=== PATIENT | female | born 1965 | race Caucasian/White ===

== ENCOUNTER 2022-01-05 11:27 | Inpatient (IN) | payer BC, MEDICARE ==
[2022-01-05] MEDS ORDERED: SODIUM CHLORIDE 0.9% 1,000 ML IV STA (12:15)
--- NOTE | 2022-01-05 12:17 | ED ---
General Adult HPI - General Chief complaint: Shortness of Breath Stated complaint: covid +, SOB Time Seen by Provider: 01/05/22 11:58 Source: EMS Mode of arrival: EMS Limitations: physical limitation - History of Present Illness Initial comments: Dictation was produced using [employer] dictation software. please excuse any grammatical, word or spelling errors. Chief Complaint: 56-year-old female with advanced multiple sclerosis and quad riplegia presents with and sister for worsening chest congestion History of Present Illness: She's 56-year-old female she has past medical history of multiple sclerosis with resulting quadriplegia. She is cared for at home by her . Patient contracted Covid they suspect on Saturday. She is been having worsening respiratory status since then. Patient allegedly has very low working tidal volumes. Concerned about her breathing which prompted her to arrive in the emergency department. Patient states she does not feel very bad. Denies any pain. She does complain of congestion. Denies any constitutional symptoms. Patient does not wear oxygen at home The ROS documented in this emergency department record has been reviewed and confirmed by me. Those systems with pertinent positive or negative responses have been documented in the HPI. All other systems are other negative and/or noncontributory. PHYSICAL EXAM: General Impression: Alert and oriented x3, not in acute distress HEENT: Normocephalic atraumatic, extra-ocular movements intact, pupils equal and reactive to light bilaterally, mucous membranes Cardiovascular: Heart regular rate and rhythm Chest: Diffuse rhonchi, no retractions, no tachypnea Abdomen: abdomen soft, non-tender, non-distended, no organomegaly Musculoskeletal: Pulses present and equal in all extremities, no peripheral edema Motor: no focal deficits noted Neurological: CN II-XII grossly intact, no focal motor or sensory deficits noted Skin: Intact with no visualized rashes Psych: Normal affect and mood ED course: 56-year-old quadriplegic female secondary to advanced multiple sclerosis presents to the emergency department for COVID-19 and chest congestion. Vital signs upon arrival shows 92% on 3 L nasal cannula. Rest vital signs within acceptable limits. Oxygen was temporarily turned off and patient came hypoxic into the upper 80s. She placed on nasal cannula with improvement of oxygenation into the low 90s. Pending CBC. Coag panel unremarkable. Metabolic panel shows an 1:30 likely secondary to mild dehydration. Rest of labs within acceptable limits. Patient is coronal virus positive. Chest x-ray shows suspicion of atypical pneumonia. Patient started on Unasyn. She'll be admitted for hypoxic respiratory failure and superimposed bacterial pneumonia. Admitted to [facility]. EKG interpretation: Ventricular rate 103, sinus tachycardia,. Interval 125, QS 94, QTC 393. No SD prolongation, no QTC prolongation, no ST or T-wave changes noted. EKG compared to 01/29/2015 showing no changes. Overall, this EKG is unremarkable - Related Data Home Medications Medication Instructions Recorded Confirmed Guaifen/Dextromethorphan/PE 10 ml PO BID PRN 01/05/22 01/05/22 [Mucinex Fast-Max Congest-Cough] Allergies Allergy/AdvReac Type Severity Reaction Status Date / Time No Known Allergies Allergy Verified 01/05/22 13:05 Review of Systems ROS Statement: Those systems with pertinent positive or pertinent negative responses have been documented in the HPI. ROS Other: All systems not noted in ROS Statement are negative. Past Medical History Additional Past Medical History / Comment(s): MS History of Any Multi-Drug Resistant Organisms: None Reported Past Surgical History: No Surgical Hx Reported Past Psychological History: No Psychological Hx Reported Smoking Status: Current every day smoker Past Alcohol Use History: None Reported, Occasional Past Drug Use History: None Reported General Exam Limitations: physical limitation Course Vital Signs 01/05/22 01/05/22 01/05/22 11:36 11:40 12:15 Temperature 98.4 F Pulse Rate 100 Respiratory 22 22 Rate Blood Pressure 142/95 O2 Sat by Pulse 92 L 88 L Oximetry Medical Decision Making - Lab Data Result diagrams: 01/05/22 12:01 Lab Results 01/05/22 01/05/22 01/05/22 Range/Units 12:01 12:01 12:01 PT 9.8 (9.0-12.0) sec INR 0.9 (<1.2) APTT 27.4 (22.0-30.0) sec Sodium 130 L (137-145) mmol/L Potassium 3.7 (3.5-5.1) mmol/L Chloride 98 (98-107) mmol/L Carbon Dioxide 22 (22-30) mmol/L Anion Gap 10 mmol/L BUN 10 (7-17) mg/dL Creatinine 0.25 L (0.52-1.04) mg/dL Est GFR (CKD-EPI)AfAm >90 (>60 ml/min/1.73 sqM) Est GFR (CKD-EPI)NonAf >90 (>60 ml/min/1.73 sqM) Glucose 111 H (74-99) mg/dL Plasma Lactic Acid Constantin (0.7-2.0) mmol/L Calcium 7.8 L (8.4-10.2) mg/dL Magnesium 1.8 (1.6-2.3) mg/dL Total Bilirubin 0.7 (0.2-1.3) mg/dL AST 90 H (14-36) U/L ALT 64 H (4-34) U/L Alkaline Phosphatase 71 (38-126) U/L Total Protein 5.6 L (6.3-8.2) g/dL Albumin 3.2 L (3.5-5.0) g/dL Influenza Type A (PCR) Not Detected (Not Detectd) Influenza Type B (PCR) Not Detected (Not Detectd) RSV (PCR) Not Detected (Not Detectd) SARS-CoV-2 (PCR) Detected A (Not Detectd) 01/05/22 Range/Units 12:01 PT (9.0-12.0) sec INR (<1.2) APTT (22.0-30.0) sec Sodium (137-145) mmol/L Potassium (3.5-5.1) mmol/L Chloride (98-107) mmol/L Carbon Dioxide (22-30) mmol/L Anion Gap mmol/L BUN (7-17) mg/dL Creatinine (0.52-1.04) mg/dL Est GFR (CKD-EPI)AfAm (>60 ml/min/1.73 sqM) Est GFR (CKD-EPI)NonAf (>60 ml/min/1.73 sqM) Glucose (74-99) mg/dL Plasma Lactic Acid Constantin 0.8 (0.7-2.0) mmol/L Calcium (8.4-10.2) mg/dL Magnesium (1.6-2.3) mg/dL Total Bilirubin (0.2-1.3) mg/dL AST (14-36) U/L ALT (4-34) U/L Alkaline Phosphatase (38-126) U/L Total Protein (6.3-8.2) g/dL Albumin (3.5-5.0) g/dL Influenza Type A (PCR) (Not Detectd) Influenza Type B (PCR) (Not Detectd) RSV (PCR) (Not Detectd) SARS-CoV-2 (PCR) (Not Detectd) Critical Care Time Critical Care Time: Yes Total Critical Care Time: 33 Disposition Clinical Impression: Hypoxia, Pneumonia Disposition: ADMITTED IP TO THIS [facility] Condition: Serious Referrals: None,Stated [Primary Care Provider] - 1-2 days Decision Time: 13:53
[2022-01-05 13:04] LABS: ALT 64 U/L (4-34); AST 90 U/L (14-36); African American GFR (CKD) >90 (>60 ml/min/1.73 sqM); Albumin 3.2 g/dL (3.5-5.0); Alkaline Phosphatase 71 U/L (38-126); Anion Gap 10 mmol/L; Blood Urea Nitrogen 10 mg/dL (7-17); Calcium 7.8 mg/dL (8.4-10.2); Carbon Dioxide 22 mmol/L (22-30); Chloride 98 mmol/L (98-107); Glucose 111 mg/dL (74-99); INR 0.9 (<1.2); Magnesium 1.8 mg/dL (1.6-2.3); Non-African American GFR(CKD) >90 (>60 ml/min/1.73 sqM); Partial Thromboplastin Time 27.4 sec (22.0-30.0); Potassium 3.7 mmol/L (3.5-5.1); Prothrombin Time 9.8 sec (9.0-12.0); Sodium 130 mmol/L (137-145); Total Bilirubin 0.7 mg/dL (0.2-1.3); Total Protein 5.6 g/dL (6.3-8.2)
--- NOTE | 2022-01-05 13:06 | XR ---
EXAMINATION TYPE: XR chest 2V DATE OF EXAM: 01/05/2022 COMPARISON: None HISTORY: 56-year-old female cough and congestion, COVID positive TECHNIQUE: AP and lateral views FINDINGS: The heart is upper limits of normal in size. Patient obliqued towards the left. There is interstitial prominence and peribronchial cuffing on the lateral view. Patchy opacity posteriorly on the lateral view likely at the left base. No pleural effusion. IMPRESSION: Interstitial prominence with peribronchial cuffing. Correlate for bronchitis or atypical pneumonias. There is more focal patchy posterior basilar opacity on the lateral view that could represent atelect asis or developing pneumonia.
[2022-01-05] MEDS ORDERED: AMPICILLIN-SULBACTAM 3 GM in SODIUM CHLORIDE 0.9% 100 ML IVPB STA (13:12)
[2022-01-05] MEDS ORDERED: NALOXONE 0.4 MG/ML 1 ML VIAL IV PRN (13:50)
[2022-01-05] MEDS: SODIUM CHLORIDE 0.9% 1,000 ML IV SCH (14:28)
[2022-01-05 15:47] LABS: Basophils % (A) 0 %; Eosinophils % (A) 0 %; HCT 41.8 % (34.0-46.0); HGB 14.3 gm/dL (11.4-16.0); Lymphocytes # (A) 0.3 k/uL (1.0-4.8); Lymphocytes % (A) 7 %; MCH 30.8 pg (25.0-35.0); MCHC 34.2 g/dL (31.0-37.0); MCV 89.9 fL (80.0-100.0); Mean Platelet Volume 9.5; Monocytes # (A) 0.2 k/uL (0-1.0); Monocytes % (A) 5 %; Neutrophils # (A) 3.9 k/uL (1.3-7.7); Neutrophils % (A) 87 %; RBC 4.65 m/uL (3.80-5.40); RDW 13.5 % (11.5-15.5); WBC 4.5 k/uL (3.8-10.6)
[2022-01-05 15:50] LABS: Platelet Count 97 k/uL (150-450)
[2022-01-05] MEDS ORDERED: IPRATROPIUM-ALBUTEROL 3 ML NEB INHALATION PRN (18:10)
[2022-01-05] MEDS ORDERED: [UNRECOGNIZED DRUG - OTHER] PO PRN (18:10)
[2022-01-05] MEDS ORDERED: PHENYLEPHRINE PO PRN (18:10)
[2022-01-05] MEDS ORDERED: DEXTROMETHORPHAN PO PRN (18:10)
[2022-01-05] MEDS ORDERED: GUAIFENESIN PO PRN (18:10)
--- NOTE | 2022-01-05 18:24 | P.HPIM ---
History of Present Illness H&P Date: 01/05/22 Chief Complaint: Congestion, weakness 56-year-old woman with a history of MS, quadriplegic, previous smoker, unvaccinated individual presented with increasing weakness, congestion. Patient's symptoms started Saturday of this week, continued to progress despite using Mucinex. She sounded extremely congested to family members who were at bedside and provide the entire history due to patient being a poor historian. Patient always had issues with sounding congested, which is gotten worse this week. They also noted episodes of her feeling quite hot to touch. Therefore, t wilian they brought her into the hospital for further evaluation. Review of systems could not be completed due to patient being a poor historian and limited participation in interview In the emergency room, patient was afebrile, 142/95, heart rate 100, 92% on 3 L of nasal cannula. CBC was unremarkable. Chemistries show a hyponatremia to 130, otherwise unremarkable. Liver function tests showed an AST, ALT of 90, 64, total protein, albumin of 5.6, 3.2. Coags are unremarkable. D-dimer was 0.36. Covid was detected positive. RSV, influenza A/B were negative. Chest x-ray shows interstitial prominence with peribronchial cuffing. EKG shows sinus tachycardia without ischemic changes. See HPI regarding review of systems Gen: in no apparent distress, resting comfortably in bed Eyes: PERRL, no scleral injection or icterus HENT: normocephalic, atraumatic, good hearing acuity, moist mucous membranes Neck: no tracheal deviation, full range of motion Resp: Impaired air exchange, tachypneic, diffuse congestion with evidence of rhonchi, rales CVS: good distal perfusion x 4, no pitting edema GI: soft, NTTP, ND, no hepatosplenomegaly : no suprapubic tenderness, no CVAT, hudson catheter not present MSK: no clubbing, no cyanosis, bilateral upper and lower extremity contractures contractures of extremities Skin: no noted rashes, petechiae; temperature of skin is appropriate Neuro: Quadriplegic Psych: Minimally cooperative, depressed mood, insight and judgment intact Labs and imaging as above Assessment/plan: Acute hypoxemic respiratory failure Covid 19 pneumonia -Admit to inpatient, telemetry -Dexamethasone -Famotidine, zinc, vitamin C, D -Pulmonary consult -Echo -Pro calcitonin, BNP -Follow inflammatory markers -Chest physiotherapy -Mucomyst Multiple sclerosis Quadriplegia -Q2h bed turn -Boots to offset heels Patient is DO NOT RESUSCITATE/DO NOT INTUBATE DVT prophylaxis with heparin 3 times a day Past Medical History Additional Past Medical History / Comment(s): MS History of Any Multi-Drug Resistant Organisms: None Reported Past Surgical History: No Surgical Hx Reported Past Psychological History: No Psychological Hx Reported Smoking Status: Current every day smoker Past Alcohol Use History: None Reported, Occasional Past Drug Use History: None Reported Medications and Allergies Home Medications Medication Instructions Recorded Confirmed Type Guaifen/Dextromethorphan/PE 10 ml PO BID PRN 01/05/22 01/05/22 History [Mucinex Fast-Max Congest-Cough] Allergies Allergy/AdvReac Type Severity Reaction Status Date / Time No Known Allergies Allergy Verified 01/05/22 13:05 Physical Exam Osteopathic Statement: *. No significant issues noted on an osteopathic struc tural exam other than those noted in the History and Physical/Consult. Vitals: Vital Signs Temp Pulse Pulse Resp BP BP Pulse Ox 01/05/22 18:10 99.1 F 86 16 145/84 91 L 01/05/22 17:16 89 16 154/92 91 L 01/05/22 14:04 98.6 F 90 18 150/87 93 L 01/05/22 12:15 88 L 01/05/22 11:40 22 01/05/22 11:36 98.4 F 100 22 142/95 92 L Intake and Output 01/05/22 01/05/22 01/05/22 06:59 14:59 22:59 Other: Weight 58.967 kg Results CBC & Chem 7: 01/05/22 14:35 01/05/22 12:01 Labs: Abnormal Lab Results - Last 24 Hours (Table) 01/05/22 01/05/22 01/05/22 Range/Units 12:01 12:01 14:35 Plt Count 97 L (150-450) k/uL Lymphocytes # 0.3 L (1.0-4.8) k/uL Sodium 130 L (137-145) mmol/L Creatinine 0.25 L (0.52-1.04) mg/dL Glucose 111 H (74-99) mg/dL Calcium 7.8 L (8.4-10.2) mg/dL AST 90 H (14-36) U/L ALT 64 H (4-34) U/L Total Protein 5.6 L (6.3-8.2) g/dL Albumin 3.2 L (3.5-5.0) g/dL SARS-CoV-2 (PCR) Detected A (Not Detectd)
[2022-01-05] MEDS ORDERED: ACETYLCYSTEINE 800 MG/4 ML VIAL INHALATION SCH (20:00)
[2022-01-05] MEDS: ALBUTEROL HFA INHALER INHALATION PRN (21:05)
[2022-01-05] MEDS: HEPARIN SODIUM,PORCINE/PF 5,000 UNIT/0.5 ML SYRINGE SQ SCH (23:04)
[2022-01-05] MEDS: FAMOTIDINE 20 MG TAB PO SCH (23:04)
[2022-01-06] MEDS: SODIUM CHLORIDE 0.9% 1,000 ML IV SCH ×2 (05:08→08:54)
[2022-01-06] MEDS: ALBUTEROL HFA INHALER INHALATION PRN ×3 (07:23→16:43)
[2022-01-06] MEDS: HEPARIN SODIUM,PORCINE/PF 5,000 UNIT/0.5 ML SYRINGE SQ SCH ×3 (10:39→20:45)
[2022-01-06] MEDS: FAMOTIDINE 20 MG TAB PO SCH ×2 (10:40→20:37)
[2022-01-06] MEDS: ASCORBIC ACID 500 MG TAB PO SCH (10:40)
[2022-01-06] MEDS: CHOLECALCIFEROL 25 MCG (1000 IU) TABLET PO SCH (10:41)
[2022-01-06] MEDS: ZINC SULFATE 220 MG CAP PO SCH (10:41)
[2022-01-06] MEDS: DEXAMETHASONE SOD PHOSPHATE 10 MG/ML 1 ML VIAL IVP SCH (10:59)
[2022-01-06 11:39] LABS: African American GFR (CKD) 160.3 (60.0-200.0); Albumin 2.7 g/dL (3.8-4.9); Albumin/Globulin Ratio 1.45 (1.60-3.17); BUN/Creat Ratio 28.41 Ratio (12.00-20.00); Bilirubin, Conjugated 0.22 mg/dL (0.20-0.40); Bilirubin,Unconjugated 0.26 mg/dL (0.20-1.00); Blood Urea Nitrogen 6.6 mg/dL (9.0-27.0); C Reactive Protein 16.6 mg/dL (0.00-0.80); Calcium 7.3 mg/dL (8.7-10.3); Carbon Dioxide 23.7 mmol/L (20.0-27.5); Globulin 1.8 g/dL (1.6-3.3); Magnesium 1.9 mg/dL (1.5-2.4); Non-African American GFR(CKD) 138.3 (60.0-200.0); Potassium 3.2 mmol/L (3.5-5.5); Total Bilirubin 0.5 mg/dL (0.30-1.20); Total Protein 4.5 g/dL (6.2-8.2)
[2022-01-06 12:12] LABS: Basophils # (A) 0 X 10*3/uL (0.00-0.10); Basophils % (A) 0 %; Eosinophils # (A) 0 X 10*3/uL (0.04-0.35); Eosinophils % (A) 0 %; HGB 12.8 g/dL (12.0-15.0); Immature Grans, Automated 0 %; Lymphocytes # (A) 0.34 X 10*3/uL (0.90-5.00); Lymphocytes % (A) 10.8 %; MCH 29.8 pg (27.0-32.0); MCHC 33.7 g/dL (32.0-37.0); MCV 88.4 fL (80.0-97.0); Mean Platelet Volume 11.6 fL (9.5-12.2); Monocytes # (A) 0.14 X 10*3/uL (0.20-1.00); Monocytes % (A) 4.5 %; NRBC Per 100 WBC 0 /100 WBCS (0.0-0.0); Neutrophils # (A) 2.66 X 10*3/uL (1.80-7.70); Neutrophils % (A) 84.7 %; Platelet Count 85 X 10*3/uL (140-440); RBC Morphology NORMAL; RDW 13.7 % (11.5-14.5); WBC 3.14 X 10*3/uL (4.50-10.00)
--- NOTE | 2022-01-06 12:35 | P.CNPUL ---
History of Present Illness Consult date: 01/06/22 Requesting physician: Krista Mckeon Reason for consult: dyspnea, abnormal CXR/CT Chief complaint: Shortness of breath History of present illness: This is a pleasant 56-year-old female patient with a known history of tobacco dependence, advanced multiple sclerosis with quadriplegia. He was diagnosed approximately 11 years ago. She is not on home oxygen. Earlier this week she developed increasing shortness of breath and was brought into the emergency room. She was found be CoVID positive. Chest x-ray revealed the posterior left lower lobe pneumonia. White count 3.1. Hemoglobin 12.8. Platelets 85,000. D- dimer 0.38. Sodium 1:30. Potassium 3.2. Bicarb 23. BUN is 0.6. Creatinine 0.2. AST 39. ALT 41. LDH 187. C-reactive protein 16.6. Pro-calcitonin 0.53. Influenza screen negative. Chronic virus by PCR positive. She was initiated on ceftriaxone, azithromycin, Decadron, vitamin supplements. Heparin for DVT prophylaxis. She is seen today in consultation on the regular medical floor. She is awake and alert. She denies any shortness of breath, cough or congesti on. No nausea or vomiting. She is maintaining O2 saturation in the 90s on 4 L/m per nasal cannula. She's been afebrile. Hemodynamically stable. Review of Systems REVIEW OF SYSTEMS: CONSTITUTIONAL: Quadriplegia Denies any recent significant weight loss or weight gain. EYES: Denies change in vision. EARS, NOSE, MOUTH, THROAT: Denies headaches, denies sore throat. CARDIOVASCULAR: Denies chest pain, palpitations or syncopal episodes. RESPIRATORY: Positive for shortness of breath, cough, congestion no hemoptysis. GASTROINTESTINAL: Denies change in appetite, denies abdominal pain GENITOURINARY: Denies hematuria, denies infections. MUSKULOSKELETAL: Denies pain, denies swelling. INTEGUMENTARY: Denies rash, denies eczema. NEUROLOGICAL: Denies recent memory loss, no recent seizure activity. PSYCHIATRIC: Denies anxiety, denies depression. HEMATOLOGIC/LYMPHATIC: Denies anemia, denies enlarged lymph nodes. Past Medical History Additional Past Medical History / Comment(s): MS History of Any Multi-Drug Resistant Organisms: None Reported Past Surgical History: No Surgical Hx Reported Past Anesthesia/Blood Transfusion Reactions: No Reported Reaction Additional Past Anesthesia/Blood Transfusion Reaction / Comment(s): Patient has never experienced either Past Psychological History: No Psychological Hx Reported Smoking Status: Current every day smoker Past Alcohol Use History: None Reported, Occasional Past Drug Use History: None Reported Medications and Allergies Home Medications Medication Instructions Recorded Confirmed Type Guaifen/Dextromethorphan/PE 10 ml PO BID PRN 01/05/22 01/05/22 History [Mucinex Fast-Max Congest-Cough] Allergies Allergy/AdvReac Type Severity Reaction Status Date / Time No Known Allergies Allergy Verified 01/05/22 13:05 Physical Exam Vitals: Vital Signs Temp Pulse Pulse Resp BP BP Pulse Ox 01/06/22 07:23 94 L 01/06/22 06:00 99.3 F 79 16 132/82 93 L 01/06/22 02:00 98.4 F 79 20 153/82 93 L 01/05/22 23:23 98.3 F 78 20 151/81 93 L 01/05/22 20:00 78 20 01/05/22 19:23 98.1 F 91 22 118/74 96 01/05/22 18:10 99.1 F 86 16 145/84 91 L 01/05/22 17:16 89 16 154/92 91 L 01/05/22 14:04 98.6 F 90 18 150/87 93 L 01/05/22 12:15 88 L Intake and Output 01/05/22 01/06/22 01/06/22 22:59 06:59 14:59 Other: Voiding Method External Catheter # Voids 3 # Bowel Movements 1 Weight 58.967 kg GENERAL EXAM: Alert, very pleasant 56-year-old female, quadriplegic, on 4 L nasal cannula, comfortable in no apparent distress. HEAD: Normocephalic. EYES: Normal reaction of pupils, equal size. NOSE: Clear with pink turbinates. THROAT: No erythema or exudates. NECK: No masses, no JVD. CHEST: No chest wall deformity. LUNGS: Equal air entry with no crackles, wheeze, rhonchi or dullness. CVS: S1 and S2 normal with no audible murmur, regular rhythm. ABDOMEN: No hepatosplenomegaly, normal bowel sounds, no guarding or rigidity. SPINE: No scoliosis or deformity SKIN: No rashes CENTRAL NERVOUS SYSTEM: Quadriplegia secondary to multiple sclerosis EXTREMITIES: There is no peripheral edema. No clubbing, no cyanosis. Peripheral pulses are intact. Results - Laboratory Findings CBC and BMP: 01/06/22 06:30 01/06/22 06:30 PT/INR, D-dimer PT 9.8 sec (9.0-12.0) 01/05/22 12:01 INR 0.9 (<1.2) 01/05/22 12:01 D-Dimer 0.38 mg/L FEU (<0.60) 01/06/22 06:30 Abnormal lab findings: Abnormal Labs 01/05/22 01/05/22 01/05/22 12:01 12:01 14:35 WBC Plt Count 97 L Plt Count Comment Lymphocytes # 0.3 L Monocytes # Eosinophils # Sodium 130 L Potassium BUN Creatinine 0.25 L BUN/Creatinine Ratio Glucose 111 H Calcium 7.8 L AST 90 H ALT 64 H C-Reactive Protein Total Protein 5.6 L Albumin 3.2 L Albumin/Globulin Ratio Procalcitonin SARS-CoV-2 (PCR) Detected A 01/05/22 01/06/22 01/06/22 14:59 06:30 06:30 WBC 3.14 L Plt Count 85 L Plt Count Comment DECREASED A Lymphocytes # 0.34 L Monocytes # 0.14 L Eosinophils # 0 L Sodium Potassium 3.2 L BUN 6.6 L Creatinine 0.2 L BUN/Creatinine Ratio 28.41 H Glucose Calcium 7.3 L AST 39 H ALT C-Reactive Protein 16.60 H Total Protein 4.5 L Albumin 2.7 L Albumin/Globulin Ratio 1.45 L Procalcitonin 0.53 H SARS-CoV-2 (PCR) - Diagnostic Findings Chest x-ray: image reviewed Assessment and Plan Assessment: Acute hypoxic respiratory failure secondary to COVID-19 infection and left lower lobe infiltrate along with severe advanced multiple sclerosis Hypoventilation secondary to severe advanced multiple sclerosis/quadriplegia Multiple sclerosis Chronic tobacco dependence Plan: The patient was seen and evaluated Chest x-ray, labs and medications reviewed Continue antibiotics in form of ceftriaxone and azithromycin Continue bronchodilators, Decadron, heparin subcu Titrate the FiO2 as tolerated We will continue to follow and make further recommendations based on her clinical status I have personally seen and examined the patient, performed the documentation and the assessment and plan as written. Number of minutes spent on the visit: 20.
[2022-01-06] MEDS: AZITHROMYCIN 500 MG in SODIUM CHLORIDE 0.9% 250 ML IVPB SCH (12:57)
--- NOTE | 2022-01-06 14:00 | P.PN ---
Subjective Progress Note Date: 01/06/22 Pt slightly improved, but still very ill. BCx + for GPCs - speciation pending. Gen: in no apparent distress, resting comfortably in bed Eyes: PERRL, no scleral injection or icterus HENT: normocephalic, atraumatic, good hearing acuity, moist mucous membranes Neck: no tracheal deviation, full range of motion Resp: Impaired air exchange, tachypneic, diffuse congestion with evidence of rhonchi, rales CVS: good distal perfusion x 4, no pitting edema GI: soft, NTTP, ND, no hepatosplenomegaly : no suprapubic tenderness, no CVAT, hudson catheter not present MSK: no clubbing, no cyanosis, bilateral upper and lower extremity contractures contractures of extremities Skin: no noted rashes, petechiae; temperature of skin is appropriate Neuro: Quadriplegic Psych: Minimally cooperative, depressed mood, insight and judgment intact Labs and imaging as above Assessment/plan: Acute hypoxemic respiratory failure Covid 19 pneumonia -Admit to inpatient, telemetry -Dexamethasone -Famotidine, zinc, vitamin C, D -Pulmonary consult -Echo -Pro calcitonin 0.53, BNP 726 -Follow inflammatory markers -Chest physiotherapy -Mucomyst Multiple sclerosis Quadriplegia -Q2h bed turn -Boots to offset heels Patient is DO NOT RESUSCITATE/DO NOT INTUBATE DVT prophylaxis with heparin 3 times a day Objective - Vital Signs Vital signs: Vital Signs Temp 99.3 F 01/06/22 06:00 Pulse 79 01/06/22 06:00 Resp 17 01/06/22 07:35 BP 132/82 01/06/22 06:00 Pulse Ox 94 L 01/06/22 07:23 FiO2 Intake & Output 01/05/22 01/06/22 01/06/22 18:59 06:59 18:59 Weight 58.967 kg Other: Voiding Method External Catheter External Catheter # Voids 3 # Bowel Movements 1 - Labs CBC & Chem 7: 01/06/22 06:30 01/06/22 06:30 Labs: Abnormal Lab Results - Last 24 Hours (Table) 01/05/22 01/05/22 01/06/22 Range/Units 14:35 14:59 06:30 WBC 3.14 L (4.50-10.00) X 10*3/uL Plt Count 97 L 85 L (150-450) k/uL Plt Count Comment DECREASED A Lymphocytes # 0.3 L 0.34 L (1.0-4.8) k/uL Monocytes # 0.14 L (0.20-1.00) X 10*3/uL Eosinophils # 0 L (0.04-0.35) X 10*3/uL Potassium (3.5-5.5) mmol/L BUN (9.0-27.0) mg/dL Creatinine (0.6-1.5) mg/dL BUN/Creatinine Ratio (12.00-20.00) Ratio Calcium (8.7-10.3) mg/dL AST (13-35) U/L C-Reactive Protein (0.00-0.80) mg/dL Total Protein (6.2-8.2) g/dL Albumin (3.8-4.9) g/dL Albumin/Globulin Ratio (1.60-3.17) g/dL Procalcitonin 0.53 H (0.02-0.09) ng/mL 01/06/22 Range/Units 06:30 WBC (4.50-10.00) X 10*3/uL Plt Count (150-450) k/uL Plt Count Comment Lymphocytes # (1.0-4.8) k/uL Monocytes # (0.20-1.00) X 10*3/uL Eosinophils # (0.04-0.35) X 10*3/uL Potassium 3.2 L (3.5-5.5) mmol/L BUN 6.6 L (9.0-27.0) mg/dL Creatinine 0.2 L (0.6-1.5) mg/dL BUN/Creatinine Ratio 28.41 H (12.00-20.00) Ratio Calcium 7.3 L (8.7-10.3) mg/dL AST 39 H (13-35) U/L C-Reactive Protein 16.60 H (0.00-0.80) mg/dL Total Protein 4.5 L (6.2-8.2) g/dL Albumin 2.7 L (3.8-4.9) g/dL Albumin/Globulin Ratio 1.45 L (1.60-3.17) g/dL Procalcitonin (0.02-0.09) ng/mL Microbiology - Last 24 Hours (Table) 01/05/22 13:30 Blood Culture - Final Blood
[2022-01-06] MEDS: LOPERAMIDE 2 MG CAP PO PRN ×2 (16:47→22:56)
[2022-01-07] MEDS ORDERED: Potassium Replacement Protocol 1 EACH MISC MISCELLANE PRN (00:09)
[2022-01-07] MEDS: POTASSIUM CHLORIDE ER 20 MEQ TAB.ER PO SCH ×2 (00:19→00:23)
[2022-01-07] MEDS ORDERED: POTASSIUM CHLORIDE ER 20 MEQ TAB.ER PO STA (02:12)
[2022-01-07 04:38] LABS: African American GFR (CKD) >90 (>60 ml/min/1.73 sqM); Anion Gap 9 mmol/L; Blood Urea Nitrogen 7 mg/dL (7-17); Calcium 7.8 mg/dL (8.4-10.2); Carbon Dioxide 22 mmol/L (22-30); Chloride 103 mmol/L (98-107); Glucose 86 mg/dL (74-99); Non-African American GFR(CKD) >90 (>60 ml/min/1.73 sqM); Potassium 3.5 mmol/L (3.5-5.1); Sodium 134 mmol/L (137-145)
[2022-01-07] MEDS: SODIUM CHLORIDE 0.9% 1,000 ML IV SCH ×3 (05:48→23:53)
[2022-01-07] MEDS: DEXAMETHASONE SOD PHOSPHATE 10 MG/ML 1 ML VIAL IVP SCH (07:53)
[2022-01-07] MEDS: ASCORBIC ACID 500 MG TAB PO SCH (07:53)
[2022-01-07] MEDS: FAMOTIDINE 20 MG TAB PO SCH ×2 (07:54→21:23)
[2022-01-07] MEDS: HEPARIN SODIUM,PORCINE/PF 5,000 UNIT/0.5 ML SYRINGE SQ SCH ×3 (07:54→23:53)
[2022-01-07] MEDS: CHOLECALCIFEROL 25 MCG (1000 IU) TABLET PO SCH (07:54)
[2022-01-07] MEDS: ZINC SULFATE 220 MG CAP PO SCH (07:54)
[2022-01-07] MEDS: ALBUTEROL HFA INHALER INHALATION PRN ×3 (08:11→15:45)
[2022-01-07 08:31] LABS: ALT 27 U/L (4-34); AST 25 U/L (14-36); African American GFR (CKD) >90 (>60 ml/min/1.73 sqM); Albumin 2.5 g/dL (3.5-5.0); Albumin/Globulin Ratio 1.3; Alkaline Phosphatase 55 U/L (38-126); Anion Gap 10 mmol/L; Blood Urea Nitrogen 7 mg/dL (7-17); Calcium 7.6 mg/dL (8.4-10.2); Carbon Dioxide 20 mmol/L (22-30); Chloride 107 mmol/L (98-107); Glucose 79 mg/dL (74-99); Non-African American GFR(CKD) >90 (>60 ml/min/1.73 sqM); Potassium 4.5 mmol/L (3.5-5.1); Sodium 137 mmol/L (137-145); Total Bilirubin 0.6 mg/dL (0.2-1.3); Total Protein 4.5 g/dL (6.3-8.2)
[2022-01-07] MEDS: LOPERAMIDE 2 MG CAP PO PRN ×2 (10:36→15:47)
--- NOTE | 2022-01-07 12:27 | P.PN ---
Subjective Progress Note Date: 01/07/22 This is a pleasant 56-year-old female patient with a known history of tobacco dependence, advanced multiple sclerosis with quadriplegia. He was diagnosed approximately 11 years ago. She is not on home oxygen. Earlier this week she developed increasing shortness of breath and was brought into the emergency room. She was found be CoVID positive. Chest x-ray revealed the posterior left lower lobe pneumonia. White count 3.1. Hemoglobin 12.8. Platelets 85,000. D- dimer 0.38. Sodium 1:30. Potassium 3.2. Bicarb 23. BUN is 0.6. Creatinine 0.2. AST 39. ALT 41. LDH 187. C-reactive protein 16.6. Pro-calcitonin 0.53. Influenza screen negative. Chronic virus by PCR positive. She was initiated on ceftriaxone, azithromycin, Decadron, vitamin supplements. Heparin for DVT prophylaxis. She is seen today in consultation on the regular medical floor. She is awake and alert. She denies any shortness of breath, cough or congestion. No nausea or vomiting. She is maintaining O2 saturation in the 90s on 4 L/m per nasal cannula. She's been afebrile. Hemodynamically stable. The patient is seen today 01/07/2022 in follow-up on the regular medical floor. She is awake and alert. She is maintaining O2 saturations in the 90s on 4 L/m per nasal cannula. She is maintaining on ceftriaxone and azithromycin. She is having issues with diarrhea and dehydration. 1 blood culture positive for coag- negative staph. sodium 137. Potassium 4.5. Bicarb 20. BUN 7. Creatinine 0.30. She is continued on vitamin supplements, Decadron, Heparin for DVT prophylaxis. Objective - Vital Signs Vital signs: Vital Signs Temp 98.0 F 01/07/22 10:00 Pulse 68 01/07/22 10:00 Resp 17 01/07/22 10:00 BP 162/80 01/07/22 10:00 Pulse Ox 93 L 01/07/22 10:00 FiO2 Intake & Output 01/06/22 01/07/22 01/07/22 18:59 06:59 18:59 Output Total 1 Balance -1 Output: Stool 1 Other: Voiding Method External Catheter External Catheter # Voids 8 2 # Bowel Movements 6 - Exam GENERAL EXAM: Alert, 56-year-old female, quadriplegic, on 4 L nasal cannula, comfortable in no apparent distress. HEAD: Normocephalic. EYES: Normal reaction of pupils, equal size. NOSE: Clear with pink turbinates. THROAT: No erythema or exudates. NECK: No masses, no JVD. CHEST: No chest wall deformity. LUNGS: Equal air entry with no crackles, wheeze, rhonchi or dullness. CVS: S1 and S2 normal with no audible murmur, regular rhythm. ABDOMEN: No hepatosplenomegaly, normal bowel sounds, no guarding or rigidity. SPINE: No scoliosis or deformity SKIN: No rashes CENTRAL NERVOUS SYSTEM: Quadriplegia secondary to multiple sclerosis EXTREMITIES: There is no peripheral edema. No clubbing, no cyanosis. Peripheral pulses are intact. - Labs CBC & Chem 7: 01/06/22 06:30 01/07/22 07:06 Labs: Abnormal Lab Results - Last 24 Hours (Table) 01/07/22 01/07/22 Range/Units 03:56 07:06 Sodium 134 L (137-145) mmol/L Carbon Dioxide 20 L (22-30) mmol/L Creatinine 0.24 L 0.30 L (0.52-1.04) mg/dL Calcium 7.8 L 7.6 L (8.4-10.2) mg/dL Total Protein 4.5 L (6.3-8.2) g/dL Albumin 2.5 L (3.5-5.0) g/dL Microbiology - Last 24 Hours (Table) 01/05/22 13:30 Blood Culture Gram Stain - Preliminary Blood Blood Culture - Preliminary Coagulase Negative Staph 01/05/22 13:52 Blood Culture - Preliminary Blood No Growth after 24 hours 01/05/22 13:30 Blood Culture - Final Blood Assessment and Plan Assessment: Acute hypoxic respiratory failure secondary to COVID-19 infection and left lower lobe infiltrate along with severe advanced multiple sclerosis Hypoventilation secondary to severe advanced multiple sclerosis/quadriplegia Multiple sclerosis Chronic tobacco dependence Diarrhea Dehydration Plan: The patient was seen and evaluated Labs and medications reviewed Check a stool for C. difficile Increase IV fluids to normal saline at 125 ML's per hour Continue antibiotics in form of ceftriaxone and azithromycin Continue bronchodilators, Decadron, heparin subcu Titrate the FiO2 as tolerated We will continue to follow I have personally seen and examined the patient, performed the documentation and the assessment and plan as written. Number of minutes spent on the visit: 10.
[2022-01-07] MEDS: AZITHROMYCIN 500 MG in SODIUM CHLORIDE 0.9% 250 ML IVPB SCH (13:04)
--- NOTE | 2022-01-07 14:06 | P.PN ---
Subjective Progress Note Date: 01/07/22 Pt still congested, weak cough. BCx growing CoNS. Gen: in no apparent distress, resting comfortably in bed Eyes: PERRL, no scleral injection or icterus HENT: normocephalic, atraumatic, good hearing acuity, moist mucous membranes Neck: no tracheal deviation, full range of motion Resp: Impaired air exchange, tachypneic, diffuse congestion with evidence of rhonchi, rales CVS: good distal perfusion x 4, no pitting edema GI: soft, NTTP, ND, no hepatosplenomegaly : no suprapubic tenderness, no CVAT, hudson catheter not present MSK: no clubbing, no cyanosis, bilateral upper and lower extremity contractures contractures of extremities Skin: no noted rashes, petechiae; temperature of skin is appropriate Neuro: Quadriplegic Psych: Minimally cooperative, depressed mood, insight and judgment intact Labs and imaging as above Assessment/plan: Acute hypoxemic respiratory failure Covid 19 pneumonia -Admit to inpatient, telemetry -Dexamethasone -Famotidine, zinc, vitamin C, D -Pulmonary consult -Echo -Pro calcitonin 0.53, BNP 726 -Follow inflammatory markers -Chest physiotherapy -Mucomyst Multiple sclerosis Quadriplegia -Q2h bed turn -Boots to offset heels Patient is DO NOT RESUSCITATE/DO NOT INTUBATE DVT prophylaxis with heparin 3 times a day Objective - Vital Signs Vital signs: Vital Signs Temp 98.0 F 01/07/22 10:00 Pulse 68 01/07/22 10:00 Resp 17 01/07/22 10:00 BP 162/80 01/07/22 10:00 Pulse Ox 93 L 01/07/22 10:00 FiO2 Intake & Output 01/06/22 01/07/22 01/07/22 18:59 06:59 18:59 Output Total 1 Balance -1 Output: Stool 1 Other: Voiding Method External Catheter External Catheter # Voids 8 2 # Bowel Movements 6 - Labs CBC & Chem 7: 01/06/22 06:30 01/07/22 07:06 Labs: Abnormal Lab Results - Last 24 Hours (Table) 01/07/22 01/07/22 Range/Units 03:56 07:06 Sodium 134 L (137-145) mmol/L Carbon Dioxide 20 L (22-30) mmol/L Creatinine 0.24 L 0.30 L (0.52-1.04) mg/dL Calcium 7.8 L 7.6 L (8.4-10.2) mg/dL Total Protein 4.5 L (6.3-8.2) g/dL Albumin 2.5 L (3.5-5.0) g/dL Microbiology - Last 24 Hours (Table) 01/05/22 13:30 Blood Culture Gram Stain - Preliminary Blood Blood Culture - Preliminary Coagulase Negative Staph 01/05/22 13:52 Blood Culture - Preliminary Blood No Growth after 24 hours 01/05/22 13:30 Blood Culture - Final Blood
--- NOTE | 2022-01-07 14:43 | P.PN ---
Subjective Progress Note Date: 01/07/22 Pt still congested, weak cough. BCx growing CoNS. Gen: in no apparent distress, resting comfortably in bed Eyes: PERRL, no scleral injection or icterus HENT: normocephalic, atraumatic, good hearing acuity, moist mucous membranes Neck: no tracheal deviation, full range of motion Resp: Impaired air exchange, tachypneic, diffuse congestion with evidence of rhonchi, rales CVS: good distal perfusion x 4, no pitting edema GI: soft, NTTP, ND, no hepatosplenomegaly : no suprapubic tenderness, no CVAT, hudson catheter not present MSK: no clubbing, no cyanosis, bilateral upper and lower extremity contractures contractures of extremities Skin: no noted rashes, petechiae; temperature of skin is appropriate Neuro: Quadriplegic Psych: Minimally cooperative, depressed mood, insight and judgment intact Labs and imaging as above Assessment/plan: Acute hypoxemic respiratory failure Covid 19 pneumonia Community Acquired Pneumonia -Admit to inpatient, telemetry -Dexamethasone -Ceftriaxone/Azithromycin -Famotidine, zinc, vitamin C, D -Pulmonary consult -Echo -Pro calcitonin 0.53, BNP 726 -Follow inflammatory markers -Chest physiotherapy -Mucomyst NSVT, max duration of 20 seconds - ensure K > 4, Mg > 2 - echocardiogram - EKG - add metoprolol 12.5mg BID - defer cardiology consult for now, but if sustained VT episode develops will touch base with them Multiple sclerosis Quadriplegia -Q2h bed turn -Boots to offset heels Patient is DO NOT RESUSCITATE/DO NOT INTUBATE DVT prophylaxis with heparin 3 times a day Objective - Vital Signs Vital signs: Vital Signs Temp 98.0 F 01/07/22 10:00 Pulse 68 01/07/22 10:00 Resp 17 01/07/22 10:00 BP 162/80 01/07/22 10:00 Pulse Ox 93 L 01/07/22 10:00 FiO2 Intake & Output 01/06/22 01/07/22 01/07/22 18:59 06:59 18:59 Output Total 1 Balance -1 Output: Stool 1 Other: Voiding Method External Catheter External Catheter # Voids 8 2 # Bowel Movements 6 - Labs CBC & Chem 7: 01/06/22 06:30 01/07/22 07:06 Labs: Abnormal Lab Results - Last 24 Hours (Table) 01/07/22 01/07/22 Range/Units 03:56 07:06 Sodium 134 L (137-145) mmol/L Carbon Dioxide 20 L (22-30) mmol/L Creatinine 0.24 L 0.30 L (0.52-1.04) mg/dL Calcium 7.8 L 7.6 L (8.4-10.2) mg/dL Total Protein 4.5 L (6.3-8.2) g/dL Albumin 2.5 L (3.5-5.0) g/dL Microbiology - Last 24 Hours (Table) 01/05/22 13:30 Blood Culture Gram Stain - Preliminary Blood Blood Culture - Preliminary Coagulase Negative Staph 01/05/22 13:52 Blood Culture - Preliminary Blood No Growth after 24 hours 01/05/22 13:30 Blood Culture - Final Blood
[2022-01-07] MEDS: METOPROLOL TARTRATE 12.5 MG TAB PO SCH ×2 (15:47→21:23)
[2022-01-07] MEDS ORDERED: MELATONIN 5 MG TABLET PO PRN (21:39)
[2022-01-08] MEDS: ALBUTEROL HFA INHALER INHALATION PRN ×2 (07:15→11:14)
[2022-01-08] MEDS: ASCORBIC ACID 500 MG TAB PO SCH (09:48)
[2022-01-08] MEDS: HEPARIN SODIUM,PORCINE/PF 5,000 UNIT/0.5 ML SYRINGE SQ SCH ×2 (09:48→16:56)
[2022-01-08] MEDS: METOPROLOL TARTRATE 12.5 MG TAB PO SCH ×2 (09:49→21:50)
[2022-01-08] MEDS: CHOLECALCIFEROL 25 MCG (1000 IU) TABLET PO SCH (09:49)
[2022-01-08] MEDS: FAMOTIDINE 20 MG TAB PO SCH ×2 (09:49→21:50)
[2022-01-08] MEDS: ZINC SULFATE 220 MG CAP PO SCH (09:50)
[2022-01-08] MEDS: DEXAMETHASONE SOD PHOSPHATE 10 MG/ML 1 ML VIAL IVP SCH (11:32)
--- NOTE | 2022-01-08 11:51 | CA ---
Transthoracic Echo Report Name: Mansi Flores Age: 56 Gender: F : 1965 Exam Date: 01/08/2022 09:16 Exam Location: [facility] Ht (in): 65 Wt (lb): 130 Ordering Physician: Shahram Mederos DO ([email or web address]) Attending/Referring Phys: Electrical Manager Sarah Andrade RDCS Procedure CPT: Indications: Possible V-Tach Cardiac Hx: Technical Quality: Fair Contrast 1: Total Dose (mL): Contrast 2: Total Dose (mL): MEASUREMENTS (Male / Female) Normal Values 2D ECHO LV Diastolic Diameter PLAX 4.6 cm 4.2 - 5.9 / 3.9 - 5.3 cm LV Systolic Diameter PLAX 3.1 cm IVS Diastolic Thickness 1.3 cm 0.6 - 1.0 / 0.6 - 0.9 cm LVPW Diastolic Thickness 1.0 cm 0.6 - 1.0 / 0.6 - 0.9 cm LV Relative Wall Thickness 0.5 RV Internal Dim ED PLAX 3.2 cm LA Volume 53.0 cm??? 18 - 58 / 22 - 52 cm??? M-MODE Aortic Root Diameter MM 2.7 cm LA Systolic Diameter MM 5.2 cm LA Ao Ratio MM 2.0 AV Cusp Separation MM 1.9 cm DOPPLER AV Peak Velocity 117.5 cm/s AV Peak Gradient 5.5 mmHg LVOT Peak Velocity 106.6 cm/s LVOT Peak Gradient 4.5 mmHg MV Area PHT 2.9 cm??? Mitral E Point Velocity 55.8 cm/s Mitral A Point Velocity 99.2 cm/s Mitral E to A Ratio 0.6 MV Deceleration Time 262.2 ms TR Peak Velocity 260.9 cm/s TR Peak Gradient 27.2 mmHg Right Ventricular Systolic Press 30.9 mmHg FINDINGS Left Ventricle Moderately increased left ventricular wall thickness. No obvious regional wall motion abnormalities. Left ventricular ejection fraction is estimated at 55-60 %. Right Ventricle Normal right ventricular size. Right ventricular systolic pressure within normal limits. Right Atrium Normal right atrial size. Left Atrium Mildly increased left atrial volume. Mildly increased left atrial area. Mitral Valve Structurally normal mitral valve. Mild mitral annular calcification. Mild mitral regurgitation. Aortic Valve No aortic valve stenosis or regurgitation. Tricuspid Valve Structurally normal tricuspid valve. Mild tricuspid regurgitation. Pulmonic Valve Structurally normal pulmonic valve. Trace pulmonic regurgitation. Pericardium Minimal pericardial effusion (normal variant). Aorta Normal size aortic root and proximal ascending aorta. CONCLUSIONS Left ventricle hypertrophy with ejection fraction of about 55% Previewed by: Dr. Kulwant Ochoa MD (Electronically Signed) Final Date: 08 January 2022 11:50
--- NOTE | 2022-01-08 12:25 | P.PN ---
Subjective Progress Note Date: 01/08/22 Pt still congested, weak cough. Palliative care consult today. Gen: in no apparent distress, resting comfortably in bed Eyes: PERRL, no scleral injection or icterus HENT: normocephalic, atraumatic, good hearing acuity, moist mucous membranes Neck: no tracheal deviation, full range of motion Resp: Impaired air exchange, tachypneic, diffuse congestion with evidence of rhonchi, rales CVS: good distal perfusion x 4, no pitting edema GI: soft, NTTP, ND, no hepatosplenomegaly : no suprapubic tenderness, no CVAT, hudson catheter not present MSK: no clubbing, no cyanosis, bilateral upper and lower extremity contractures contractures of extremities Skin: no noted rashes, petechiae; temperature of skin is appropriate Neuro: Quadriplegic Psych: Minimally cooperative, depressed mood, insight and judgment intact Labs and imaging as above Assessment/plan: Acute hypoxemic respiratory failure Covid 19 pneumonia Community Acquired Pneumonia -Admit to inpatient, telemetry -Dexamethasone -Ceftriaxone/Azithromycin -Famotidine, zinc, vitamin C, D -Pulmonary consult -Echo -Pro calcitonin 0.53, BNP 726 -Follow inflammatory markers -Chest physiotherapy -Mucomyst NSVT, max duration of 20 seconds - ensure K > 4, Mg > 2 - echocardiogram - EKG - add metoprolol 12.5mg BID - defer cardiology consult for now, but if sustained VT episode develops will touch base with them Multiple sclerosis Quadriplegia -Q2h bed turn -Boots to offset heels Patient is DO NOT RESUSCITATE/DO NOT INTUBATE DVT prophylaxis with heparin 3 times a day Objective - Vital Signs Vital signs: Vital Signs Temp 97.9 F 01/08/22 09:31 Pulse 67 01/08/22 09:31 Resp 17 01/08/22 09:31 BP 150/84 01/08/22 09:31 Pulse Ox 90 L 01/08/22 09:31 FiO2 Intake & Output 01/07/22 01/08/22 01/08/22 18:59 06:59 18:59 Output Total 1 1 Balance -1 -1 Output: Stool 1 1 Other: Voiding Method Diaper Diaper Diaper Incontinent Incontinent Incontinent External Catheter External Catheter External Catheter # Voids 5 3 - Labs CBC & Chem 7: 01/06/22 06:30 09/11/22 07:06 Labs: Microbiology - Last 24 Hours (Table) 01/05/22 13:52 Blood Culture - Preliminary Blood No Growth after 48 hours
[2022-01-08] MEDS: AZITHROMYCIN 500 MG in SODIUM CHLORIDE 0.9% 250 ML IVPB SCH (12:47)
--- NOTE | 2022-01-08 14:34 | P.PN ---
Subjective Progress Note Date: 01/08/22 This is a pleasant 56-year-old female patient with a known history of tobacco dependence, advanced multiple sclerosis with quadriplegia. He was diagnosed approximately 11 years ago. She is not on home oxygen. Earlier this week she developed increasing shortness of breath and was brought into the emergency room. She was found be CoVID positive. Chest x-ray revealed the posterior left lower lobe pneumonia. White count 3.1. Hemoglobin 12.8. Platelets 85,000. D- dimer 0.38. Sodium 1:30. Potassium 3.2. Bicarb 23. BUN is 0.6. Creatinine 0.2. AST 39. ALT 41. LDH 187. C-reactive protein 16.6. Pro-calcitonin 0.53. Influenza screen negative. Chronic virus by PCR positive. She was initiated on ceftriaxone, azithromycin, Decadron, vitamin supplements. Heparin for DVT prophylaxis. She is seen today in consultation on the regular medical floor. She is awake and alert. She denies any shortness of breath, cough or congestion. No nausea or vomiting. She is maintaining O2 saturation in the 90s on 4 L/m per nasal cannula. She's been afebrile. Hemodynamically stable. The patient is seen today 01/07/2022 in follow-up on the regular medical floor. She is awake and alert. She is maintaining O2 saturations in the 90s on 4 L/m per nasal cannula. She is maintaining on ceftriaxone and azithromycin. She is having issues with diarrhea and dehydration. 1 blood culture positive for coag- negative staph. sodium 137. Potassium 4.5. Bicarb 20. BUN 7. Creatinine 0.30. She is continued on vitamin supplements, Decadron, Heparin for DVT prophylaxis. The patient is seen today 01/08/2022 in follow-up on the regular medical floor. She is currently resting in bed. She is awake and alert. She is maintaining O2 saturations in the 90s on 2 L/m per nasal cannula. She's afebrile. Hemodynamically stable. She is continued on Decadron, heparin and vitamin supplements. Objective - Vital Signs Vital signs: Vital Signs Temp 97.7 F 01/08/22 14:00 Pulse 76 01/08/22 14:00 Resp 17 01/08/22 14:00 BP 155/80 01/08/22 14:00 Pulse Ox 94 L 01/08/22 14:00 FiO2 Intake & Output 01/07/22 01/08/22 01/08/22 18:59 06:59 18:59 Output Total 1 1 Balance -1 -1 Output: Stool 1 1 Other: Voiding Method Diaper Diaper Diaper Incontinent Incontinent Incontinent External Catheter External Catheter External Catheter # Voids 5 3 - Exam GENERAL EXAM: Alert, 56-year-old female, quadriplegic, on 2 L nasal cannula, comfortable in no apparent distress. HEAD: Normocephalic. EYES: Normal reaction of pupils, equal size. NOSE: Clear with pink turbinates. THROAT: No erythema or exudates. NECK: No masses, no JVD. CHEST: No chest wall deformity. LUNGS: Equal air entry with no crackles, wheeze, rhonchi or dullness. CVS: S1 and S2 normal with no audible murmur, regular rhythm. ABDOMEN: No hepatosplenomegaly, normal bowel sounds, no guarding or rigidity. SPINE: No scoliosis or deformity SKIN: No rashes CENTRAL NERVOUS SYSTEM: Quadriplegia secondary to multiple sclerosis EXTREMITIES: There is no peripheral edema. No clubbing, no cyanosis. Peripheral pulses are intact. - Labs CBC & Chem 7: 01/06/22 06:30 01/07/22 07:06 Labs: Microbiology - Last 24 Hours (Table) 01/05/22 13:30 Blood Culture Gram Stain - Final Blood Blood Culture - Final Coagulase Negative Staph 01/05/22 13:52 Blood Culture - Preliminary Blood No Growth after 48 hours Assessment and Plan Assessment: Acute hypoxic respiratory failure secondary to COVID-19 infection and left lower lobe infiltrate along with severe advanced multiple sclerosis Hypoventilation secondary to severe advanced multiple sclerosis/quadriplegia Multiple sclerosis Chronic tobacco dependence Diarrhea Dehydration Plan: The patient was seen and evaluated Continue antibiotics in form of ceftriaxone Continue bronchodilators, Decadron, heparin subcu Titrate the FiO2 as tolerated Follow-up chest x-ray in the a.m. We will continue to follow I have personally seen and examined the patient, performed the documentation and the assessment and plan as written. Number of minutes spent on the visit: 10.
[2022-01-08] MEDS: ONDANSETRON 4 MG/2 ML VIAL IVP PRN (17:16)
[2022-01-08] MEDS: SODIUM CHLORIDE 0.9% 1,000 ML IV SCH (21:09)
[2022-01-09] MEDS: HEPARIN SODIUM,PORCINE/PF 5,000 UNIT/0.5 ML SYRINGE SQ SCH ×4 (00:08→23:11)
[2022-01-09] MEDS: SODIUM CHLORIDE 0.9% 1,000 ML IV SCH ×4 (00:32→23:11)
--- NOTE | 2022-01-09 08:03 | XR ---
EXAMINATION TYPE: XR chest 1V portable DATE OF EXAM: 01/09/2022 COMPARISON: 2021 HISTORY: Pneumonia, cough TECHNIQUE: Single frontal view of the chest is obtained. FINDINGS: Persistent elevated right hemidiaphragm with bilateral lower lobe infiltrate and small eff usion. Heart size stable. Diffuse osteopenia with no pneumothorax. Atherosclerotic change aorta. IMPRESSION: 1. Elevated right hemidiaphragm with bilateral lower lobe infiltrate and small pleural effusion corre late for underlying pneumonia.
[2022-01-09] MEDS: ASCORBIC ACID 500 MG TAB PO SCH (08:06)
[2022-01-09] MEDS: CHOLECALCIFEROL 25 MCG (1000 IU) TABLET PO SCH (08:06)
[2022-01-09] MEDS: FAMOTIDINE 20 MG TAB PO SCH ×2 (08:07→21:02)
[2022-01-09] MEDS: METOPROLOL TARTRATE 12.5 MG TAB PO SCH ×2 (08:07→21:01)
[2022-01-09] MEDS: ZINC SULFATE 220 MG CAP PO SCH (08:07)
[2022-01-09] MEDS: ALBUTEROL HFA INHALER INHALATION PRN ×2 (08:39→12:09)
--- NOTE | 2022-01-09 09:01 | P.PN ---
Progress Note - Text Progress Note Date: 01/09/22 Called patient's , Chavez, on 01/08 at 1415 to set up a meeting to discuss goals of care. Left message. Called Chavez again 01/09 at 0830. No answer, left message. Awaiting call back. Nkechi Gómez [facility] [phone] Email: [email or web address]
[2022-01-09] MEDS: DEXAMETHASONE SOD PHOSPHATE 10 MG/ML 1 ML VIAL IVP SCH (09:19)
[2022-01-09] MEDS: ONDANSETRON 4 MG/2 ML VIAL IVP PRN (09:26)
[2022-01-09 10:35] LABS: Basophils # (A) 0.01 X 10*3/uL (0.00-0.10); Basophils % (A) 0.3 %; Eosinophils # (A) 0 X 10*3/uL (0.04-0.35); Eosinophils % (A) 0 %; HCT 41.8 % (37.2-46.3); HGB 14.4 g/dL (12.0-15.0); Immature Grans, Automated 0.3 %; Lymphocytes # (A) 0.29 X 10*3/uL (0.90-5.00); Lymphocytes % (A) 8.1 %; MCH 30.1 pg (27.0-32.0); MCHC 34.4 g/dL (32.0-37.0); MCV 87.3 fL (80.0-97.0); Mean Platelet Volume 10.3 fL (9.5-12.2); Monocytes # (A) 0.58 X 10*3/uL (0.20-1.00); Monocytes % (A) 16.3 %; NRBC Per 100 WBC 0 /100 WBCS (0.0-0.0); Neutrophils # (A) 2.67 X 10*3/uL (1.80-7.70); Platelet Count 175 X 10*3/uL (140-440); RBC 4.79 X 10*6/uL (4.10-5.20); RDW 13.3 % (11.5-14.5); WBC 3.56 X 10*3/uL (4.50-10.00)
[2022-01-09 11:20] LABS: LDH 221 U/L (120-246); Magnesium 1.8 mg/dL (1.5-2.4)
[2022-01-09 11:37] LABS: ALT 18 U/L (8-44); AST 18 U/L (13-35); African American GFR (CKD) 168.3 (60.0-200.0); Albumin 2.7 g/dL (3.8-4.9); Albumin/Globulin Ratio 1.23 (1.60-3.17); Alkaline Phosphatase 51 U/L (41-126); Bilirubin, Conjugated <0.20 mg/dL (0.20-0.40); Blood Urea Nitrogen 6.2 mg/dL (9.0-27.0); Calcium 7.7 mg/dL (8.7-10.3); Carbon Dioxide 20.7 mmol/L (20.0-27.5); Chloride 100 mmol/L (96-109); Globulin 2.2 g/dL (1.6-3.3); Glucose 96 mg/dL (70-110); Non-African American GFR(CKD) 145.2 (60.0-200.0); Potassium 3.2 mmol/L (3.5-5.5); Sodium 135 mmol/L (135-145); Total Protein 4.9 g/dL (6.2-8.2)
--- NOTE | 2022-01-09 12:23 | P.CONS ---
History of Present Illness - Reason for Consult Consult date: 01/09/22 Goals of care Requesting physician: Александр Kaur - Chief Complaint Cough, sob - History of Present Illness The patient is a pleasant 56-year-old female patient with a known history of tobacco dependence, advanced multiple sclerosis with quadriplegia. She was diagnosed approximately 11 years ago. She is an unvaccinated individual who presented to the [facility] on 01/05 with increasing weakness, congestion. Patient's symptoms continued to progress despite using Mucinex. She sounded extremely congested to family members who were at bedside and provide the entire history d ue to patient being a poor historian. Patient always had issues with sounding congested, which is gotten worse this week. They also noted episodes of her feeling quite hot to touch. Therefore, today they brought her into the hospital for further evaluation. In the EC, the patient was afebrile, 142/95, heart rate 100, 92% on 3 L of nasal cannula. CBC was unremarkable. Chemistries show a hyponatremia to 130, otherwise unremarkable. Liver function tests showed an AST, ALT of 90, 64, total protein, albumin of 5.6, 3.2. Coags are unremarkable. D-dimer was 0.36. Covid was detected positive. RSV, influenza A/B were negative. Chest x-ray shows interstitial prominence with peribronchial cuffing. EKG shows sinus tachycardia without ischemic changes. The patient was started antibiotics in form of ceftriaxone an azithromax, Zinc, Vit C & D, Mucomyst, bronchodilators, and Decadron. Review of Systems Constitutional: Reports as per HPI Past Medical History Additional Past Medical History / Comment(s): MS History of Any Multi-Drug Resistant Organisms: None Reported Past Surgical History: No Surgical Hx Reported Past Anesthesia/Blood Transfusion Reactions: No Reported Reaction Additional Past Anesthesia/Blood Transfusion Reaction / Comm: Patient has never experienced either Past Psychological History: No Psychological Hx Reported Smoking Status: Current every day smoker Past Alcohol Use History: None Reported, Occasional Past Drug Use History: None Reported Medications and Allergies Home Medications Medication Instructions Recorded Confirmed Type Guaifen/Dextromethorphan/PE 10 ml PO BID PRN 01/05/22 01/05/22 History [Mucinex Fast-Max Congest-Cough] Allergies Allergy/AdvReac Type Severity Reaction Status Date / Time No Known Allergies Allergy Verified 01/05/22 13:05 Physical Exam Vitals: Vital Signs Temp Pulse Resp BP Pulse Ox 01/09/22 10:00 97.9 F 60 17 137/83 90 L 01/09/22 07:40 60 17 01/09/22 06:00 97.5 F L 58 L 18 157/86 89 L 01/09/22 01:50 97.7 F 61 18 142/88 91 L 01/08/22 19:56 98.0 F 64 24 146/83 91 L 01/08/22 18:00 98.0 F 75 17 153/78 97 01/08/22 14:00 97.7 F 76 17 155/80 94 L Intake and Output 01/08/22 01/09/22 01/09/22 22:59 06:59 14:59 Output Total 400 1 Balance -400 -1 Output: Urine 400 Stool 1 Other: Voiding Method Diaper Diaper Incontinent Incontinent External Catheter External Catheter # Voids 7 # Bowel Movements 2 4 General: Well developed, well nourished. No acute distress. HEENT: Head is atraumatic, normocephalic. Sclerae are clear. Pupils equal, round and reactive to light bilaterally. Mucus membranes moist. CV: Heart regular in rate and rhythm positive S1 and S2. No clicks, rubs or murmurs. Peripheral pulses equal. 2/4 Lungs: Diminished bases, scattered rhonchi. Respirations shallow and nonlabored. On 6L NC Abdomen/GI: Soft. Bowel sounds present in all 4 quadrants. No guarding, rigidity, or abdominal tenderness. Musculoskeletal/ Extremities: ,No joint deformity or swelling. Quadriplegic Vascular: Radial pulses equal. 2/4. No peripheral edema Skin: Warm and dry, No rash or lesions. Neurologic: Awake, alert and oriented times 3. No focal deficits. Psychiatric: Flat affect Results CBC & Chem 7: 01/09/22 07:26 01/09/22 07:26 Labs: Abnormal Lab Results - Last 24 Hours (Table) 01/09/22 01/09/22 Range/Units 07:26 07:26 WBC 3.56 L (4.50-10.00) X 10*3/uL Lymphocytes # 0.29 L (0.90-5.00) X 10*3/uL Eosinophils # 0 L (0.04-0.35) X 10*3/uL C-Reactive Protein 5.10 H (0.00-0.80) mg/dL Microbiology - Last 24 Hours (Table) 01/05/22 13:52 Blood Culture - Preliminary Blood No Growth after 72 hours 01/05/22 13:30 Blood Culture Gram Stain - Final Blood Blood Culture - Final Coagulase Negative Staph Chest x-ray: report reviewed Assessment and Plan Assessment: Social * Occupation - Unemployed, was previously a weaver * Marital status - to , Chavez, for 17 years * Children/grandchildren - None * Residence - Single story house * Who do you reside with - * ETOH - No * Tobacco - Current everyday smoker, approximately 4 cigarettes/day * Illicit drugs - No Spiritual/Cultural * A spiritual person - Yes * Confucianism - Islam * Belong to a particular gnosticism - No * Beliefs a source of comfort and strength - No * Gnosticist or cultural practices restrictions - No * EOL considerations/rituals - None Functional Assessment * Able to walk independently - No, * Assistive devices - lifts her to her wheelchair * Able to use the bathroom independently - No * Continent - No, wears depends * Require assistance bathing- Yes * Able to feed self - No * Who prepares meals - * How many meals a day eaten - 3 * What percentage of meals eaten daily - <50% * Able to clean house/do laundry - No * Transportation - * Able to shop - No * Who manages medications - * Who manages finances - Psychological/Emotional * Dementia present - No * Insight and judgment - Intact * Depression - No * Suicidal thoughts - No * Good support system - Yes * Patients goals - Comfort * Frequent hospitalizations - No * Desire to keep coming back to the hospital for treatment - Yes Symptoms * Pain - 0/10 * Fatigue - + fatigue * SOB - Yes, Continue Albuterol, Decadron, and Ceftriaxone, chest PT, and mucomyst * Insomnia - Yes, patient has her own sleep schedule that varies, Continue Melatonin prn * N/V - + nausea, Continue Zofran * Anxiety - No * Depression - No * Confusion - No * Agitation - No * Hallucinations - No * Appetite/weight loss - Fair appetite, no recent weight loss * Dysphagia - trouble swallowing, DIRECTOR OF EVENTS following, continue Dysphagia level 3 diet * Constipation - No, she has been having diarrhea, Continue Immodium prn * Incontinence - Yes, wears briefs * Itch - No Plan: Summary/Goals - Patient resting in bed. , Chavez, at bedside. Informat ion regarding palliative care philosophies and services provided. Education provided regarding her severe advanced MS. The patient has not seen a doctor in 7 years. She does not want to go anymore and has stopped all treatment for her MS. They stated they are aware that her disease will continue to progress. They do not have a PCP because it is too hard to transport her to and from an office, and it is very uncomfortable for her. At one point Chavez looked into [facility]. Unfortunately they were out of network and too expensive to pay out of pocket. He states he need some guidance and advice from a medical professional to continue to take care of her. The patient states she just wants to be comfortable, but is not ready for hospice yet. The patient and her are more interested in palliative care. However, without a PCP, they do not qualify for palliative care. Hospice philosophies and services explained to them. Hospice has their own physicians. They declined hospice. Updated case management. Recommendations - Find a visiting physician within their network, discharge home with palliative care when cleared medically. Advanced Directives - No Code Status - DNR Thank you for this consult Nkechi Gómez [facility]- Palliative Care [facility] [id number] Email: [email or web address] Time with Patient: Greater than 30
--- NOTE | 2022-01-09 12:36 | P.PN ---
Subjective Progress Note Date: 01/09/22 This is a pleasant 56-year-old female patient with a known history of tobacco dependence, advanced multiple sclerosis with quadriplegia. He was diagnosed approximately 11 years ago. She is not on home oxygen. Earlier this week she developed increasing shortness of breath and was brought into the emergency room. She was found be CoVID positive. Chest x-ray revealed the posterior left lower lobe pneumonia. White count 3.1. Hemoglobin 12.8. Platelets 85,000. D- dimer 0.38. Sodium 1:30. Potassium 3.2. Bicarb 23. BUN is 0.6. Creatinine 0.2. AST 39. ALT 41. LDH 187. C-reactive protein 16.6. Pro-calcitonin 0.53. Influenza screen negative. Chronic virus by PCR positive. She was initiated on ceftriaxone, azithromycin, Decadron, vitamin supplements. Heparin for DVT prophylaxis. She is seen today in consultation on the regular medical floor. She is awake and alert. She denies any shortness of breath, cough or congestion. No nausea or vomiting. She is maintaining O2 saturation in the 90s on 4 L/m per nasal cannula. She's been afebrile. Hemodynamically stable. The patient is seen today 01/07/2022 in follow-up on the regular medical floor. She is awake and alert. She is maintaining O2 saturations in the 90s on 4 L/m per nasal cannula. She is maintaining on ceftriaxone and azithromycin. She is having issues with diarrhea and dehydration. 1 blood culture positive for coag- negative staph. sodium 137. Potassium 4.5. Bicarb 20. BUN 7. Creatinine 0.30. She is continued on vitamin supplements, Decadron, Heparin for DVT prophylaxis. The patient is seen today 01/08/2022 in follow-up on the regular medical floor. She is currently resting in bed. She is awake and alert. She is maintaining O2 saturations in the 90s on 2 L/m per nasal cannula. She's afebrile. Hemodynamically stable. She is continued on Decadron, heparin and vitamin supplements. The patient is seen today 01/09/2022 in follow-up on the regular medical floor. She is a bit more awake and alert today compared to yesterday. Her is at the bedside. She is maintaining O2 saturations in the low 90s on 6 L high flow nasal cannula. She's afebrile. Hemodynamically stable. Follow-up blood culture reveals no growth. White count 3.5. Hemoglobin 14.4. D-dimer 0.54. Sodium 135. Potassium 3.2. BUN 6. Creatinine 0.2. LDH 221. C-reactive protein 5.1. C. difficile screen negative. She is continued on ceftriaxone Remains on Decadron, heparin for DVT prophylaxis, vitamin supplements. Chest x- ray reveals elevated right hemidiaphragm with bilateral lower lobe infiltrates and small effusion. Objective - Vital Signs Vital signs: Vital Signs Temp 97.9 F 01/09/22 10:00 Pulse 60 01/09/22 10:00 Resp 17 01/09/22 10:00 BP 137/83 01/09/22 10:00 Pulse Ox 90 L 01/09/22 10:00 FiO2 Intake & Output 01/08/22 01/09/22 01/09/22 18:59 06:59 18:59 Output Total 1 400 1 Balance -1 -400 -1 Output: Urine 400 Stool 1 1 Other: Voiding Method Diaper Diaper Diaper Incontinent Incontinent Incontinent External Catheter External Catheter External Catheter # Voids 7 # Bowel Movements 2 4 - Exam GENERAL EXAM: Alert, 56-year-old female, quadriplegic, on 6 L nasal cannula, comfortable in no apparent distress. HEAD: Normocephalic. EYES: Normal reaction of pupils, equal size. NOSE: Clear with pink turbinates. THROAT: No erythema or exudates. NECK: No masses, no JVD. CHEST: No chest wall deformity. LUNGS: Equal air entry with diminished in the right lung base. Faint crackles posteriorly. CVS: S1 and S2 normal with no audible murmur, regular rhythm. ABDOMEN: No hepatosplenomegaly, normal bowel sounds, no guarding or rigidity. SPINE: No scoliosis or deformity SKIN: No rashes CENTRAL NERVOUS SYSTEM: Quadriplegia secondary to multiple sclerosis EXTREMITIES: There is no peripheral edema. No clubbing, no cyanosis. Peripheral pulses are intact. - Labs CBC & Chem 7: 01/09/22 07:26 01/09/22 07:26 Labs: Abnormal Lab Results - Last 24 Hours (Table) 01/09/22 01/09/22 Range/Units 07: 07:26 WBC 3.56 L (4.50-10.00) X 10*3/uL Lymphocytes # 0.29 L (0.90-5.00) X 10*3/uL Eosinophils # 0 L (0.04-0.35) X 10*3/uL Potassium 3.2 L (3.5-5.5) mmol/L BUN 6.2 L (9.0-27.0) mg/dL Creatinine 0.2 L (0.6-1.5) mg/dL BUN/Creatinine Ratio 31.00 H (12.00-20.00) Ratio Calcium 7.7 L (8.7-10.3) mg/dL Conjugated Bilirubin <0.20 L (0.20-0.40) mg/dL C-Reactive Protein 5.10 H (0.00-0.80) mg/dL Total Protein 4.9 L (6.2-8.2) g/dL Albumin 2.7 L (3.8-4.9) g/dL Albumin/Globulin Ratio 1.23 L (1.60-3.17) g/dL Microbiology - Last 24 Hours (Table) 01/05/22 13:52 Blood Culture - Preliminary Blood No Growth after 72 hours 01/05/22 13:30 Blood Culture Gram Stain - Final Blood Blood Culture - Final Coagulase Negative Staph Assessment and Plan Assessment: Acute hypoxic respiratory failure secondary to COVID-19 infection and left lower lobe infiltrate along with severe advanced multiple sclerosis Hypoventilation secondary to severe advanced multiple sclerosis/quadriplegia Multiple sclerosis Chronic tobacco dependence Diarrhea Dehydration Plan: The patient was seen and evaluated Chest x-ray, labs and medications reviewed Continue antibiotics in form of ceftriaxone Continue bronchodilators, Decadron, heparin subcu Titrate the FiO2 as tolerated We will continue to follow I have personally seen and examined the patient, performed the documentation and the assessment and plan as written. Number of minutes spent on the visit: 10.
--- NOTE | 2022-01-09 17:16 | P.PN ---
Subjective Progress Note Date: 01/09/22 Patient was seen and examined. No acute events overnight. at bedside. Patient reports weak cough. Currently on 6 L nasal cannula. reports that she is slightly improved. General: [non toxic], [no distress], [appears at stated age] Derm: [warm], [dry] Head: [atraumatic], [normocephalic], [symmetric] Eyes: [EOMI], [no lid lag], [anicteric sclera] Mouth: [no lip lesion], [mucus membranes moist] Cardiovascular: [S1S2 reg], [no murmur] Lungs: [Coarse breath sounds bilaterally], [no accessory muscle use] Abdominal: [soft], [ nontender to palpation] Ext: [no gross muscle atrophy], [no edema], [paraplegia with contractured upper extremities] Neuro: [no focal neuro deficits] Psych: [Flat affect] Labs and imaging as above Assessment/plan: Acute hypoxemic respiratory failure COVID-19 pneumonia Community Acquired Pneumonia -Admit to inpatient, telemetry -Dexamethasone -Ceftriaxone/Azithromycin -Famotidine, zinc, vitamin C, D -Pulmonary consult -Echo -Pro calcitonin 0.53, BNP 726 -Follow inflammatory markers -Chest physiotherapy -Mucomyst NSVT, max duration of 20 seconds - ensure K > 4, Mg > 2 - echocardiogram shows EF of 55% with LVH - EKG - Continue metoprolol 12.5mg BID - defer cardiology consult for now, but if sustained VT episode develops will touch base with them Multiple sclerosis Quadriplegia -Q2h bed turn -Boots to offset heels Patient is DO NOT RESUSCITATE/DO NOT INTUBATE DVT prophylaxis with heparin 3 times a day Objective - Vital Signs Vital signs: Vital Signs Temp 97.9 F 01/09/22 10:00 Pulse 60 01/09/22 10:00 Resp 17 01/09/22 10:00 BP 137/83 01/09/22 10:00 Pulse Ox 90 L 01/09/22 10:00 FiO2 Intake & Output 01/08/22 01/09/22 01/09/22 18:59 06:59 18:59 Output Total 1 400 1 Balance -1 -400 -1 Output: Urine 400 Stool 1 1 Other: Voiding Method Diaper Diaper Diaper Incontinent Incontinent Incontinent External Catheter External Catheter External Catheter # Voids 7 # Bowel Movements 2 4 - Labs CBC & Chem 7: 01/09/22 07:26 01/09/22 07:26 Labs: Abnormal Lab Results - Last 24 Hours (Table) 01/09/22 01/09/22 01/09/22 Range/Units 07:26 07:26 07:26 WBC 3.56 L (4.50-10.00) X 10*3/uL Lymphocytes # 0.29 L (0.90-5.00) X 10*3/uL Eosinophils # 0 L (0.04-0.35) X 10*3/uL Potassium 3.2 L (3.5-5.5) mmol/L BUN 6.2 L (9.0-27.0) mg/dL Creatinine 0.2 L (0.6-1.5) mg/dL BUN/Creatinine Ratio 31.00 H (12.00-20.00) Ratio Calcium 7.7 L (8.7-10.3) mg/dL Conjugated Bilirubin <0.20 L (0.20-0.40) mg/dL C-Reactive Protein 5.10 H (0.00-0.80) mg/dL Total Protein 4.9 L (6.2-8.2) g/dL Albumin 2.7 L (3.8-4.9) g/dL Albumin/Globulin Ratio 1.23 L (1.60-3.17) g/dL Procalcitonin 0.12 H (0.02-0.09) ng/mL Microbiology - Last 24 Hours (Table) 01/05/22 13:52 Blood Culture - Preliminary Blood No Growth after 96 hours 01/05/22 13:30 Blood Culture Gram Stain - Final Blood Blood Culture - Final Coagulase Negative Staph
[2022-01-10] MEDS: SODIUM CHLORIDE 0.9% 1,000 ML IV SCH (05:01)
[2022-01-10] MEDS: LOPERAMIDE 2 MG CAP PO PRN ×2 (05:33→17:26)
[2022-01-10] MEDS: ALBUTEROL HFA INHALER INHALATION PRN ×4 (05:44→21:02)
[2022-01-10] MEDS: CHOLECALCIFEROL 25 MCG (1000 IU) TABLET PO SCH (10:11)
[2022-01-10] MEDS: DEXAMETHASONE SOD PHOSPHATE 10 MG/ML 1 ML VIAL IVP SCH (10:11)
[2022-01-10] MEDS: FAMOTIDINE 20 MG TAB PO SCH ×2 (10:12→20:12)
[2022-01-10] MEDS: METOPROLOL TARTRATE 12.5 MG TAB PO SCH ×2 (10:12→20:12)
[2022-01-10] MEDS: ASCORBIC ACID 500 MG TAB PO SCH (10:12)
[2022-01-10] MEDS: ZINC SULFATE 220 MG CAP PO SCH (10:12)
[2022-01-10] MEDS: HEPARIN SODIUM,PORCINE/PF 5,000 UNIT/0.5 ML SYRINGE SQ SCH ×2 (10:12→17:17)
--- NOTE | 2022-01-10 10:43 | P.PN ---
Subjective Progress Note Date: 01/10/22 Principal diagnosis: Pneumonia The patient is a pleasant 56-year-old female patient with a known history of tobacco dependence, advanced multiple sclerosis with quadriplegia. She was diagnosed approximately 11 years ago. She is an unvaccinated individual who presented to the [facility] on 01/05 with increasing weakness, congestion. Patient's symptoms continued to progress despite using Mucinex. She sounded extremely congested to family members who were at bedside and provide the entire history due to patient being a poor historian. Patient always had issues with sounding congested, which is gotten worse this week. They also noted episodes of her feeling quite hot to touch. Therefore, today they brought her into the hospital for further evaluation. In the EC, the patient was afebrile, 142/95, heart rate 100, 92% on 3 L of nasal cannula. CBC was unremarkable. Chemistries show a hyponatremia to 130, otherwise unremarkable. Liver function tests showed an AST, ALT of 90, 64, total protein, albumin of 5.6, 3.2. Coags are unremarkable. D-dimer was 0.36. Covid was detected positive. RSV, influenza A/B were negative. Chest x-ray shows interstitial prominence with peribronchial cuffing. EKG shows sinus tachycardia without ischemic changes. The patient was started antibiotics in form of ceftriaxone an azithromax, Zinc, Vit C & D, Mucomyst, bronchodilators, and Decadron. 01/10 Patient resting in bed. , Chavez, at bedside. Information regarding palliative care philosophies and services provided. Education provided regarding her severe advanced MS. The patient has not seen a doctor in 7 years. She does not want to go anymore and has stopped all treatment for her MS. They stated they are aware that her disease will continue to progress. They do not have a PCP because it is too hard to transport her to and from an office, and it is very uncomfortable for her. At one point Chavez looked into [facility]. Unfortunately they were out of network and too expensive to pay out of pocket. He states he need some guidance and advice from a medical professional to continue to take care of her. The patient states she just wants to be comfortable, but is not ready for hospice yet. The patient and her are more interested in palliative care. However, without a PCP, they do not qualify for palliative care. Hospice philosophies and services explained to them. Hospice has their own physicians. They declined hospice. Updated case manageme nt. Objective - Vital Signs Vital signs: Vital Signs Temp 97.8 F 01/10/22 07:47 Pulse 65 01/10/22 07:47 Resp 17 01/10/22 07:47 BP 157/89 01/10/22 07:47 Pulse Ox 90 L 01/10/22 09:44 FiO2 Intake & Output 01/09/22 01/10/22 01/10/22 18:59 06:59 18:59 Output Total 1252 1500 Balance -1252 -1500 Output: Urine 1250 1500 Stool 2 Other: Voiding Method Diaper Diaper Incontinent Incontinent External Catheter External Catheter # Bowel Movements 1 - Exam General: Well developed, well nourished. + mild respiratory distress. HEENT: Head is atraumatic, normocephalic. Sclerae are clear. Pupils equal, round and reactive to light bilaterally. Mucus membranes moist. CV: Heart regular in rate and rhythm positive S1 and S2. No clicks, rubs or murmurs. Peripheral pulses equal. 2/4 Lungs: Diminished bases, scattered rhonchi. Respirations shallow and nonlabored. Tachypneic Abdomen/GI: Soft. Bowel sounds present in all 4 quadrants. No guarding, rigidity, or abdominal tenderness. Musculoskeletal/ Extremities: No joint deformity or swelling. Quadriplegic Vascular: Radial pulses equal. 2/4. No peripheral edema Skin: Warm and dry, No rash or lesions. Neurologic: Awake, alert and oriented times 3. No focal deficits. Psychiatric: Flat affect - Labs CBC & Chem 7: 01/09/22 07:26 01/09/22 07:26 Labs: Abnormal Lab Results - Last 24 Hours (Table) 01/09/22 01/09/22 01/09/22 Range/Units 07:26 07:26 07:26 WBC 3.56 L (4.50-10.00) X 10*3/uL Lymphocytes # 0.29 L (0.90-5.00) X 10*3/uL Eosinophils # 0 L (0.04-0.35) X 10*3/uL Potassium 3.2 L (3.5-5.5) mmol/L BUN 6.2 L (9.0-27.0) mg/dL Creatinine 0.2 L (0.6-1.5) mg/dL BUN/Creatinine Ratio 31.00 H (12.00-20.00) Ratio Calcium 7.7 L (8.7-10.3) mg/dL Conjugated Bilirubin <0.20 L (0.20-0.40) mg/dL C-Reactive Protein 5.10 H (0.00-0.80) mg/dL Total Protein 4.9 L (6.2-8.2) g/dL Albumin 2.7 L (3.8-4.9) g/dL Albumin/Globulin Ratio 1.23 L (1.60-3.17) g/dL Procalcitonin 0.12 H (0.02-0.09) ng/mL Microbiology - Last 24 Hours (Table) 01/05/22 13:52 Blood Culture - Preliminary Blood No Growth after 96 hours Assessment and Plan Assessment: Symptoms * Pain - 0/10 * Fatigue - + fatigue * SOB - Yes, Continue Albuterol, Decadron, and Ceftriaxone, chest PT, and mucomyst * Insomnia - Yes, patient has her own sleep schedule that varies, Continue Melatonin prn * N/V - + nausea, Continue Zofran * Anxiety - No * Depression - No * Confusion - No * Agitation - No * Hallucinations - No * Appetite/weight loss - Fair appetite, no recent weight loss * Dysphagia - trouble swallowing, TUBE OPERATOR following, continue Dysphagia level 3 pureed/thin liquid diet * Constipation - No, she has been having diarrhea, Continue Immodium prn * Incontinence - Yes, wears briefs * Itch - No Plan: Summary/Goals - Patient resting in bed. Chavez at bedside. Patient tachypneic with labored, shallow breaths and desatting. Respiratory therapist present and titrating O2 up to 15L HFNC, and then to NRB mask. ANTHONY met with patient and yesterday. is highly interested in having additional in home assistance, specifically nursing. ANTHONY explained that because patient does not have a PCP, she does not qualify for in home nursing. ANTHONY again discussed [facility] and stated he was told he would be responsible for an initial cost of $ 725 and then the visit would cost $5000. He stated they can not afford this. There are no other options for in home physician services known to ANTHONY. Therefore, patient is unable to have in home services through insurance. states he plans to discuss with his PCP, . The stated that he has no way of getting her to a doctors office because she is bed bound. She had decided to stop going to her physicians seven yeas ago. She felt as if there was not a lot they could do for her anyway. The ride to and from the office and sitting there for a long period of time to see the physician was just too hard on her. Hospice philosophies and services were discussed again. They agreed to an informational visit. Consult order placed and CM notified. Advanced Directives - No Code Status - DNR Thank you for this consult Nkechi Gómez [facility]- Palliative Care [facility] [id number] Email: [email or web address] Time with Patient: Less than 30
[2022-01-10] MEDS: ALPRAZolam 0.25 MG TAB PO PRN ×3 (11:16→20:46)
--- NOTE | 2022-01-10 11:49 | P.PN ---
Subjective Progress Note Date: 01/10/22 This is a pleasant 56-year-old female patient with a known history of tobacco dependence, advanced multiple sclerosis with quadriplegia. He was diagnosed approximately 11 years ago. She is not on home oxygen. Earlier this week she developed increasing shortness of breath and was brought into the emergency room. She was found be CoVID positive. Chest x-ray revealed the posterior left lower lobe pneumonia. White count 3.1. Hemoglobin 12.8. Platelets 85,000. D- dimer 0.38. Sodium 1:30. Potassium 3.2. Bicarb 23. BUN is 0.6. Creatinine 0.2. AST 39. ALT 41. LDH 187. C-reactive protein 16.6. Pro-calcitonin 0.53. Influenza screen negative. Chronic virus by PCR positive. She was initiated on ceftriaxone, azithromycin, Decadron, vitamin supplements. Heparin for DVT prophylaxis. She is seen today in consultation on the regular medical floor. She is awake and alert. She denies any shortness of breath, cough or congestion. No nausea or vomiting. She is maintaining O2 saturation in the 90s on 4 L/m per nasal cannula. She's been afebrile. Hemodynamically stable. The patient is seen today 01/07/2022 in follow-up on the regular medical floor. She is awake and alert. She is maintaining O2 saturations in the 90s on 4 L/m per nasal cannula. She is maintaining on ceftriaxone and azithromycin. She is having issues with diarrhea and dehydration. 1 blood culture positive for coag- negative staph. sodium 137. Potassium 4.5. Bicarb 20. BUN 7. Creatinine 0.30. She is continued on vitamin supplements, Decadron, Heparin for DVT prophylaxis. The patient is seen today 01/08/2022 in follow-up on the regular medical floor. She is currently resting in bed. She is awake and alert. She is maintaining O2 saturations in the 90s on 2 L/m per nasal cannula. She's afebrile. Hemodynamically stable. She is continued on Decadron, heparin and vitamin supplements. The patient is seen today 01/09/2022 in follow-up on the regular medical floor. She is a bit more awake and alert today compared to yesterday. Her is at the bedside. She is maintaining O2 saturations in the low 90s on 6 L high flow nasal cannula. She's afebrile. Hemodynamically stable. Follow-up blood culture reveals no growth. White count 3.5. Hemoglobin 14.4. D-dimer 0.54. Sodium 135. Potassium 3.2. BUN 6. Creatinine 0.2. LDH 221. C-reactive protein 5.1. C. difficile screen negative. She is continued on ceftriaxone Remains on Decadron, heparin for DVT prophylaxis, vitamin supplements. Chest x- ray reveals elevated right hemidiaphragm with bilateral lower lobe infiltrates and small effusion. The patient is seen today 01/10/2022 in follow-up on the regular medical floor. She is currently resting comfortably in bed. Awake and alert in no acute distress. She is still requiring 8 L L high flow nasal cannula. She is continued on Decadron, heparin, vitamin supplements. She is on antibiotics in the form of ceftriaxone. Pro-calcitonin 0.12. Urinalysis pending. Objective - Vital Signs Vital signs: Vital Signs Temp 97.8 F 01/10/22 07:47 Pulse 65 01/10/22 07:47 Resp 17 01/10/22 07:47 BP 157/89 01/10/22 07:47 Pulse Ox 90 L 01/10/22 09:44 FiO2 Intake & Output 01/09/22 01/10/22 01/10/22 18:59 06:59 18:59 Output Total 1252 1500 Balance -1252 -1500 Output: Urine 1250 1500 Stool 2 Other: Voiding Method Diaper Diaper Incontinent Incontinent Incontinent External Catheter External Catheter # Bowel Movements 1 - Exam GENERAL EXAM: Alert, 56-year-old female, quadriplegic, on 8 L nasal cannula, comfortable in no apparent distress. HEAD: Normocephalic. EYES: Normal reaction of pupils, equal size. NOSE: Clear with pink turbinates. THROAT: No erythema or exudates. NECK: No masses, no JVD. CHEST: No chest wall deformity. LUNGS: Equal air entry with diminished in the right lung base. Faint crackles posteriorly. CVS: S1 and S2 normal with no audible murmur, regular rhythm. ABDOMEN: No hepatosplenomegaly, normal bowel sounds, no guarding or rigidity. SPINE: No scoliosis or deformity SKIN: No rashes CENTRAL NERVOUS SYSTEM: Quadriplegia secondary to multiple sclerosis EXTREMITIES: There is no peripheral edema. No clubbing, no cyanosis. Peripheral pulses are intact. - Labs CBC & Chem 7: 01/09/22 07:26 01/09/22 07:26 Labs: Abnormal Lab Results - Last 24 Hours (Table) 01/09/22 Range/Units 07:26 Procalcitonin 0.12 H (0.02-0.09) ng/mL Microbiology - Last 24 Hours (Table) 01/05/22 13:52 Blood Culture - Preliminary Blood No Growth after 96 hours Assessment and Plan Assessment: Acute hypoxic respiratory failure secondary to COVID-19 infection and left lower lobe infiltrate along with severe advanced multiple sclerosis Hypoventilation secondary to severe advanced multiple sclerosis/quadriplegia Multiple sclerosis Chronic tobacco dependence Diarrhea Dehydration Plan: The patient was seen and evaluated Medications reviewed Continue antibiotics in form of ceftriaxone Obtain a urinalysis Continue bronchodilators, Decadron, heparin subcu Titrate the FiO2 as tolerated We will continue to follow I have personally seen and examined the patient, performed the documentation and the assessment and plan as written. Number of minutes spent on the visit: 10.
--- NOTE | 2022-01-10 15:02 | P.PN ---
Subjective Progress Note Date: 01/10/22 Patient was seen and examined. No acute events overnight. at bedside. Patient reports weak cough. Currently on 15 L high flow nasal cannula. reports mentation has been improving. General: non toxic, no distress, appears at stated age Derm: warm, dry Head: atraumatic, normocephalic, symmetric Eyes: EOMI, no lid lag, anicteric sclera Mouth: no lip lesion, mucus membranes moist Cardiovascular: S1S2 reg, no murmur Lungs: Coarse breath sounds bilaterally, no accessory muscle use Abdominal: soft, nontender to palpation Ext: no gross muscle atrophy, no edema, paraplegia with contractured upper extremities Neuro: no focal neuro deficits Psych: Flat affect Assessment/plan: Acute hypoxemic respiratory failure COVID-19 pneumonia Community Acquired Pneumonia -Admit to inpatient, telemetry -Dexamethasone -Ceftriaxone -3 day course of Azithromycin completed -Famotidine, zinc, vitamin C, D -Pulmonary consult -Pro calcitonin 0.53, BNP 726 -Follow inflammatory markers -Chest physiotherapy -Mucomyst Hypokalemia -Replace with potassium chloride 40 mEq IV -Magnesium sulfate 3g IV ordered -Repeat BMP tomorrow morning NSVT, max duration of 20 seconds -Likely related to hypoxia -Ensure K > 4, Mg > 2 -Echocardiogram shows EF of 55% with LVH -Continue metoprolol 12.5mg BID -Defer cardiology consult for now, but if sustained VT episode develops will touch base with them Multiple sclerosis Quadriplegia -Q2h bed turn -Boots to offset heels Leukopenia likely related to COVID-19 infection. Patient is DO NOT RESUSCITATE/DO NOT INTUBATE DVT prophylaxis with heparin 3 times a day Objective - Vital Signs Vital signs: Vital Signs Temp 97.8 F 01/10/22 14:00 Pulse 60 01/10/22 14:00 Resp 17 01/10/22 14:00 BP 153/89 01/10/22 14:00 Pulse Ox 92 L 01/10/22 14:00 FiO2 Intake & Output 01/09/22 01/10/22 01/10/22 18:59 06:59 18:59 Output Total 1252 1500 Balance -1252 -1500 Output: Urine 1250 1500 Stool 2 Other: Voiding Method Diaper Diaper Incontinent Incontinent Incontinent External Catheter External Catheter # Bowel Movements 1 - Labs CBC & Chem 7: 01/09/22 07:26 01/09/22 07:26 Labs: Abnormal Lab Results - Last 24 Hours (Table) 01/09/22 Range/Units 07:26 Procalcitonin 0.12 H (0.02-0.09) ng/mL Microbiology - Last 24 Hours (Table) 01/05/22 13:52 Blood Culture - Preliminary Blood No Growth after 96 hours
[2022-01-10] MEDS ORDERED: POTASSIUM CHLORIDE ER 20 MEQ TAB.ER PO STA (15:14)
[2022-01-10] MEDS: MAGNESIUM SULFATE-D5W PMX 1 GM in DEXTROSE/WATER 1 100ML.BAG IVPB SCH ×3 (15:25→18:05)
[2022-01-10] MEDS: POTASSIUM CHLORIDE 20 MEQ in WATER FOR INJECTION 1 100ML.BAG IVPB SCH ×2 (15:25→18:21)
[2022-01-10 17:59] LABS: Appearance,Urine Cloudy (Clear); Bilirubin,Urine 2+ (Negative); Blood,Urine Small (Negative); Color,Urine Dark Yellow; Glucose,Urine (UA) Negative (Negative); Ketones,Urine 3+ (Negative); Leukocyte Esterase,Urine Large (Negative); Mucus,Urine Rare /hpf; Nitrite,Urine Negative (Negative); Protein,Urine Negative (Negative); RBC,Urine 2 /hpf (0-5); Specific Gravity,Urine 1.008 (1.001-1.035); Squamous Epithelial Cell,Urine <1 /hpf (0-4); Urobilinogen,Urine <2.0 mg/dL (<2.0); WBC,Urine 2 /hpf (0-5)
[2022-01-11] MEDS: HEPARIN SODIUM,PORCINE/PF 5,000 UNIT/0.5 ML SYRINGE SQ SCH ×4 (01:56→22:52)
[2022-01-11] MEDS: ALBUTEROL HFA INHALER INHALATION PRN ×3 (07:58→16:18)
[2022-01-11] MEDS: ZINC SULFATE 220 MG CAP PO SCH (08:01)
[2022-01-11] MEDS: ASCORBIC ACID 500 MG TAB PO SCH (08:01)
[2022-01-11] MEDS: FAMOTIDINE 20 MG TAB PO SCH ×2 (08:01→22:02)
[2022-01-11] MEDS: METOPROLOL TARTRATE 12.5 MG TAB PO SCH ×2 (08:01→22:02)
[2022-01-11] MEDS: CHOLECALCIFEROL 25 MCG (1000 IU) TABLET PO SCH (08:01)
[2022-01-11] MEDS: DEXAMETHASONE SOD PHOSPHATE 10 MG/ML 1 ML VIAL IVP SCH (08:02)
[2022-01-11] MEDS ORDERED: HYDROcodone/APAP 5-325MG 1 EACH TAB PO PRN (09:19)
--- NOTE | 2022-01-11 09:49 | P.PN ---
Subjective Progress Note Date: 01/11/22 Principal diagnosis: Hypoxemic respiratory failure. This is a pleasant 56-year-old female patient with a known history of tobacco dependence, advanced multiple sclerosis with quadriplegia. He was diagnosed approximately 11 years ago. She is not on home oxygen. Earlier this week she developed increasing shortness of breath and was brought into the emergency room. She was found be CoVID positive. Chest x-ray revealed the posterior left lower lobe pneumonia. White count 3.1. Hemoglobin 12.8. Platelets 85,000. D- dimer 0.38. Sodium 1:30. Potassium 3.2. Bicarb 23. BUN is 0.6. Creatinine 0.2. AST 39. ALT 41. LDH 187. C-reactive protein 16.6. Pro-calcitonin 0.53. Influenza screen negative. Chronic virus by PCR positive. She was initiated on ceftriaxone, azithromycin, Decadron, vitamin supplements. Heparin for DVT prophylaxis. She is seen today in consultation on the regular medical floor. She is awake and alert. She denies any shortness of breath, cough or congestion. No nausea or vomiting. She is maintaining O2 saturation in the 90s on 4 L/m per nasal cannula. She's been afebrile. Hemodynamically stable. The patient is seen today 01/07/2022 in follow-up on the regular medical floor. She is awake and alert. She is maintaining O2 saturations in the 90s on 4 L/m per nasal cannula. She is maintaining on ceftriaxone and azithromycin. She is having issues with diarrhea and dehydration. 1 blood culture positive for coag- negative staph. sodium 137. Potassium 4.5. Bicarb 20. BUN 7. Creatinine 0.30. She is continued on vitamin supplements, Decadron, Heparin for DVT prophylaxis. The patient is seen today 01/08/2022 in follow-up on the regular medical floor. She is currently resting in bed. She is awake and alert. She is maintaining O2 saturations in the 90s on 2 L/m per nasal cannula. She's afebrile. Hemodynamically stable. She is continued on Decadron, heparin and vitamin supplements. The patient is seen today 01/09/2022 in follow-up on the regular medical floor. She is a bit more awake and alert today compared to yesterday. Her is at the bedside. She is maintaining O2 saturations in the low 90s on 6 L high flow nasal cannula. She's afebrile. Hemodynamically stable. Follow-up blood culture reveals no growth. White count 3.5. Hemoglobin 14.4. D-dimer 0.54. Sodium 135. Potassium 3.2. BUN 6. Creatinine 0.2. LDH 221. C-reactive protein 5.1. C. difficile screen negative. She is continued on ceftriaxone Remains on Decadron, heparin for DVT prophylaxis, vitamin supplements. Chest x- ray reveals elevated right hemidiaphragm with bilateral lower lobe infiltrates and small effusion. The patient is seen today 01/10/2022 in follow-up on the regular medical floor. She is currently resting comfortably in bed. Awake and alert in no acute distress. She is still requiring 8 L L high flow nasal cannula. She is continued on Decadron, heparin, vitamin supplements. She is on antibiotics in the form of ceftriaxone. Pro-calcitonin 0.12. Urinalysis pending. Progress note dated 01/11/2022. The patient is seen in room 479. Her oxygen requirements have significantly increased in the last couple of days. She's now up to 15 L high flow nasal cannula. Yesterday, she was on 8 L, and before that, 6 L. She's not receiving any IV fluids at this time. She is very weak, and cannot take deep breaths. She cannot do incentive spirometry. No new lab data today. The last bit of blood work on her was on January 09. Likewise, on the same day, she had a chest x-ray. Blood cultures from January 05 were positive for coag-negative staph. Apparently, her is considering hospice. Objective - Vital Signs Vital signs: Vital Signs Temp 97.4 F L 01/11/22 07:30 Pulse 79 01/11/22 07:30 Resp 17 01/11/22 07:30 BP 146/89 01/11/22 07:30 Pulse Ox 94 L 01/11/22 07:58 FiO2 Intake & Output 01/10/22 01/11/22 01/11/22 18:59 06:59 18:59 Output Total 4 901 Balance -4 -901 Output: Urine 900 Stool 4 1 Other: Voiding Method Incontinent External Catheter # Voids 4 3 # Bowel Movements 1 - Exam Frail, oriented 3, cannot take deep breaths. The patient is manifesting mild to moderate respiratory difficulty. HEENT examination is grossly unremarkable. Neck supple. Full range of motion. No adenopathy thyromegaly or neck vein distention. Cardiovascular examination reveals regular rhythm rate. S1-S2 normal. No S3 or S4. No discernible murmur noted. Heart rate 79 bpm. Heart sounds are distant. Lungs reveal coarse bilateral inspiratory and expiratory rhonchi. I suspect she has lots of airway secretions. No wheezes. A few scattered crackles. Breath sounds equal. Saturations are in the low 90s on 15 L high flow cannula. Abdomen soft bowel sounds are heard. No masses or tenderness. Extremities are intact. No cyanosis clubbing or edema. Skin is without rash or lesion. Neurologic examination is unchanged. - Labs CBC & Chem 7: 01/09/22 07:26 01/09/22 07:26 Labs: Abnormal Lab Results - Last 24 Hours (Table) 01/10/22 Range/Units 17:25 Urine Appearance Cloudy H (Clear) Urine Ketones 3+ H (Negative) Urine Blood Small H (Negative) Urine Bilirubin 2+ H (Negative) Ur Leukocyte Esterase Large H (Negative) Urine Mucus Rare H (None) /hpf Microbiology - Last 24 Hours (Table) 01/05/22 13:52 Blood Culture - Preliminary Blood No Growth after 120 hours Assessment and Plan Assessment: Acute hypoxic respiratory failure secondary to COVID-19 infection and left lower lobe infiltrate along with severe advanced multiple sclerosis. Hypoventilation secondary to severe advanced multiple sclerosis/quadriplegia. Multiple sclerosis. Chronic tobacco dependence. Diarrhea. Dehydration. Plan: Plan dated 01/11/2022. The patient's oxygen requirements have now gone up to 15 L high flow nasal cannula. Initially she was on 2 L. The patient is continuing on bronchodilators, steroids, and subcutaneous heparin. Prognosis is very poor. I think it's very appropriate the consider hospice or palliative care. Labs, x-rays, and medications are reviewed. The patient continues on Rocephin. Time with Patient: Less than 30
[2022-01-11 09:50] LABS: African American GFR (CKD) 151.8 (60.0-200.0); Anion Gap 14.7 mmol/L (10.00-18.00); BUN/Creat Ratio 20.99 Ratio (12.00-20.00); Blood Urea Nitrogen 5.8 mg/dL (9.0-27.0); Calcium 7.9 mg/dL (8.7-10.3); Carbon Dioxide 22.2 mmol/L (20.0-27.5); Potassium 4.9 mmol/L (3.5-5.5)
--- NOTE | 2022-01-11 10:29 | P.PN ---
Subjective Progress Note Date: 01/11/22 Principal diagnosis: Pneumonia The patient is a pleasant 56-year-old female patient with a known history of tobacco dependence, advanced multiple sclerosis with quadriplegia. She was diagnosed approximately 11 years ago. She is an unvaccinated individual who presented to the [facility] on 01/05 with increasing weakness, congestion. Patient's symptoms continued to progress despite using Mucinex. She sounded extremely congested to family members who were at bedside and provide the entire history due to patient being a poor historian. Patient always had issues with sounding congested, which is gotten worse this week. They also noted episodes of her feeling quite hot to touch. Therefore, today they brought her into the hospital for further evaluation. In the [facility], the patient was afebrile, 142/95, heart rate 100, 92% on 3 L of nasal cannula. CBC was unremarkable. Chemistries show a hyponatremia to 130, otherwise unremarkable. Liver function tests showed an AST, ALT of 90, 64, total protein, albumin of 5.6, 3.2. Coags are unremarkable. D-dimer was 0.36. Covid was detected positive. RSV, influenza A/B were negative. Chest x-ray shows interstitial prominence with peribronchial cuffing. EKG shows sinus tachycardia without ischemic changes. The patient was started antibiotics in form of ceftriaxone an azithromax, Zinc, Vit C & D, Mucomyst, bronchodilators, and Decadron. 01/09 Patient resting in bed. , Chavez, at bedside. Information regarding palliative care philosophies and services provided. Education provided regarding her severe advanced MS. The patient has not seen a doctor in 7 years. She does not want to go anymore and has stopped all treatment for her MS. They stated they are aware that her disease will continue to progress. They do not have a PCP because it is too hard to transport her to and from an office, and it is very uncomfortable for her. At one point Chavez looked into [facility]. Unfortunately they were out of network and too expensive to pay out of pocket. He states he need some guidance and advice from a medical professional to continue to take care of her. The patient states she just wants to be comfortable, but is not ready for hospice yet. The patient and her are more interested in palliative care. However, without a PCP, they do not qualify for palliative care. Hospice philosophies and services explained to them. Hospice has their own physicians. They declined hospice. Updated case manageme nt. 01/10 Patient resting in bed. Chavez at bedside. Patient tachypneic with labored, shallow breaths and desatting. Respiratory therapist present and titrating O2 up to 15L HFNC, and then to NRB mask. CM met with patient and yesterday. is highly interested in having additional in home assistance, specifically nursing. CM explained that because patient does not have a PCP, she does not qualify for in home nursing. CM again discussed [facility] and stated he was told he would be responsible for an initial cost of $725 and then the visit would cost $5000. He stated they can not afford this. There are no other options for in home physician services known to CM. Therefore, patient is unable to have in home services through insurance. states he plans to discuss with his PCP, . The stated that he has no way of getting her to a doctors office because she is bed bound. She had decided to stop going to her physicians seven yeas ago. She felt as if there was not a lot they could do for her anyway. The ride to and from the office and sitting there for a long period of time to see the physician was just too hard on her. Hospice philosophies and services were discussed again. They agreed to an informational visit. Consult order placed and CM notified. Objective - Vital Signs Vital signs: Vital Signs Temp 97.4 F L 01/11/22 07:30 Pulse 79 01/11/22 07:30 Resp 17 01/11/22 07:30 BP 146/89 01/11/22 07:30 Pulse Ox 94 L 01/11/22 07:58 FiO2 Intake & Output 01/10/22 01/11/22 01/11/22 18:59 06:59 18:59 Output Total 4 901 Balance -4 -901 Output: Urine 900 Stool 4 1 Other: Voiding Method Incontinent External Catheter # Voids 4 3 # Bowel Movements 1 - Exam General: Well developed, well nourished. + respiratory distress. HEENT: Head is atraumatic, normocephalic. Sclerae are clear. Pupils equal, round and reactive to light bilaterally. Mucus membranes moist. CV: Heart regular in rate and rhythm positive S1 and S2. No clicks, rubs or mu rmurs. Peripheral pulses equal. 2/4 Lungs: Diminished bases, scattered rhonchi. Respirations shallow and nonlabored. Tachypneic. On 15L HFNC Abdomen/GI: Soft. Bowel sounds present in all 4 quadrants. No guarding, rigidity, or abdominal tenderness. Musculoskeletal/ Extremities: No joint deformity or swelling. Quadriplegic Vascular: Radial pulses equal. 2/4. No peripheral edema Skin: Warm and dry, No rash or lesions. Neurologic: Awake, alert and oriented times 3. No focal deficits. Psychiatric: Flat affect - Labs CBC & Chem 7: 01/09/22 07:26 01/11/22 05:55 Labs: Abnormal Lab Results - Last 24 Hours (Table) 01/10/22 Range/Units 17:25 Urine Appearance Cloudy H (Clear) Urine Ketones 3+ H (Negative) Urine Blood Small H (Negative) Urine Bilirubin 2+ H (Negative) Ur Leukocyte Esterase Large H (Negative) Urine Mucus Rare H (None) /hpf Microbiology - Last 24 Hours (Table) 01/05/22 13:52 Blood Culture - Preliminary Blood No Growth after 120 hours Assessment and Plan Assessment: Symptoms * Pain - 5/10 generalized pain/discomfort. Start [place] Q4H prn * Fatigue - + fatigue * SOB - Yes, Continue Albuterol, Decadron, and Ceftriaxone, chest PT, and mucomyst * Insomnia - Yes, patient has her own sleep schedule that varies, Continue Melatonin prn * N/V - + intermittent nausea, Continue Zofran * Anxiety - + Anxiiety, continue Xanax TID prn * Depression - No * Confusion - No * Agitation - No * Hallucinations - No * Appetite/weight loss - Fair appetite, no recent weight loss * Dysphagia - trouble swallowing, [employer] following, continue Dysphagia level 3 pureed/thin liquid diet * Constipation - No, LBM 01/11. she has been having diarrhea, Continue Immodium prn * Incontinence - Yes, wears briefs and has an external catheter * Itch - No Plan: Summary/Goals - Patient resting in bed. Her is at the bedside. She is tachypneic, breathing is labored, shallow breaths, and has a weak cough. She is currently on 15L HFNC. The states that they met with hospice yesterday for an informational visit and are very interested in their services. He thinks they would be able to provide the services he needs to help keep her comfortable. The patient agreed. The would like to talk to the pulmonary physician to find out the chances of her lungs improving if given more time and treatment. It was explained that she is not likely to improve given her MS. The concern is now that she may continue to decline. She has not improved with treatment so far, and her oxygen requirements have gone up significantly. Dr. Cullen and Dr. Martinez notified. Advanced Directives - No Code Status - DNR Thank you for this consult Nke[facility] G[facility]me[facility]- Palliative Care [employer]ink [id number] Email: [email or web address] Time with Patient: Less than 30
--- NOTE | 2022-01-11 13:39 | P.DS ---
Providers Date of admission: 01/05/22 13:50 Expected date of discharge: 01/11/22 Attending physician: Krista Mckeon MD Consults: 01/05/22 13:50 Consult Physician Routine Consulting Provider: Mj Vincent Consult Reason/Comments: hypoxic respiratory failure Do you want consulting provider notified?: Yes 01/08/22 14:57 Consult to Palliative Care Routine Consulting Provider: Nkechi Gómez Consult Reason/Comments: GoC Do you want consulting provider notified?: Yes Primary care physician: Stated None Hospital Course: 56-year-old woman with a history of MS, quadriplegic, previous smoker, unvaccinated individual presented with increasing weakness, congestion. Patient's symptoms started Saturday of this week, continued to progress despite using Mucinex. She sounded extremely congested to family members who were at bedside and provide the entire history due to patient being a poor historian. Patient always had issues with sounding congested, which is gotten worse this week. They also noted episodes of her feeling quite hot to touch. Therefore, today they brought her into the hospital for further evaluation. Review of systems could not be completed due to patient being a poor historian and limited participation in interview In the emergency room, patient was afebrile, 142/95, heart rate 100, 92% on 3 L of nasal cannula. CBC was unremarkable. Chemistries show a hyponatremia to 130, otherwise unremarkable. Liver function tests showed an AST, ALT of 90, 64, total protein, albumin of 5.6, 3.2. Coags are unremarkable. D-dimer was 0.36. Covid was detected positive. RSV, influenza A/B were negative. Chest x-ray shows interstitial prominence with peribronchial cuffing. EKG shows sinus tachycardia without ischemic changes. With a regular COVID-19 pneumonia, patient was started on Rocephin and azithromycin for concerns of commuting or pneumonia. She was started on Decadron. She was given supplemental O2 to maintain O2 saturation greater than 92%. Pulmonology was consulted and followed the patient during her hospitalization. Unfortunately, her oxygen requirements continue to increase and she was on 15 L high flow nasal cannula at the time of discharge. She did have an episode of nonsustained ventricular tachycardia. Her electrolytes were repleted. She was started on metoprolol. Echocardiogram showed EF of 55% with LVH. Patient was seen and examined. No acute events overnight. Case was discussed extensively with her . reported that the patient was quite uncomfortable the hospital and would prefer to be at home. He and the patient is agreeable for home with hospice. Hospice consult is placed in case management is aware. Anticipated discharge home with hospice today. General: non toxic, no distress, appears at stated age Derm: warm, dry Head: atraumatic, normocephalic, symmetric Eyes: EOMI, no lid lag, anicteric sclera Mouth: no lip lesion, mucus membranes moist Lungs: tachypneic Ext: paraplegia with contractured upper extremities Psych: Flat affect Discharge diagnoses: Acute hypoxemic respiratory failure COVID-19 pneumonia Community Acquired Pneumonia Hypokalemia NSVT, max duration of 20 seconds Multiple sclerosis Quadriplegia This complex discharge took about 45 minutes to complete. Pertinent Studies: Chest x-ray Echocardiogram Patient Condition at Discharge: Serious Plan - Discharge Summary Discharge Rx Participant: No New Discharge Prescriptions: New RX: HYDROcodone/APAP 5-325MG [[place] 5-325] 1 each PO Q4HR PRN #18 tab PRN Reason: Pain RX: Famotidine [Pepcid] 20 mg PO BID #60 tab dexAMETHasone [Decadron] 6 mg PO DAILY #4 tablet RX: Metoprolol Tartrate [Lopressor] 12.5 mg PO BID #60 tab RX: Albuterol Inhaler [Ventolin Hfa Inhaler] 2 puff INHALATION RT-QID PRN #1 inh PRN Reason: Shortness Of Breath Or Wheezing RX: ALPRAZolam [Xanax] 0.25 mg PO TID PRN #9 tab PRN Reason: Anxiety Continue RX: Guaifen/Dextromethorphan/PE [Mucinex Fast-Max Congest-Cough] 10 ml PO BID PRN PRN Reason: Congestion Discharge Medication List RX: Guaifen/Dextromethorphan/PE [Mucinex Fast-Max Congest-Cough] 10 ml PO BID PRN 01/05/22 [History] RX: ALPRAZolam [Xanax] 0.25 mg PO TID PRN #9 tab 01/11/22 [Rx] RX: Albuterol Inhaler [Ventolin Hfa Inhaler] 2 puff INHALATION RT-QID PRN #1 inh 01/11/22 [Rx] RX: Famotidine [Pepcid] 20 mg PO BID #60 tab 01/11/22 [Rx] RX: HYDROcodone/APAP 5-325MG [[place] 5-325] 1 each PO Q4HR PRN #18 tab 01/11/22 [Rx] RX: Metoprolol Tartrate [Lopressor] 12.5 mg PO BID #60 tab 01/11/22 [Rx] dexAMETHasone [Decadron] 6 mg PO DAILY #4 tablet 01/11/22 [Rx] Follow up Appointment(s)/Referral(s): None,Stated [Primary Care Provider] - 1-2 days Activity/Diet/Wound Care/Special Instructions: Diet: Regular Follow-up with hospice at home. Discharge Disposition: HOME WITH HOSPICE
[2022-01-11 18:13] VITALS: PULSE 67
[2022-01-12] MEDS: HEPARIN SODIUM,PORCINE/PF 5,000 UNIT/0.5 ML SYRINGE SQ SCH (08:47)
[2022-01-12] MEDS: DEXAMETHASONE SOD PHOSPHATE 10 MG/ML 1 ML VIAL IVP SCH (08:47)
[2022-01-12] MEDS: ASCORBIC ACID 500 MG TAB PO SCH (08:47)
[2022-01-12] MEDS: METOPROLOL TARTRATE 12.5 MG TAB PO SCH (08:48)
[2022-01-12] MEDS: ZINC SULFATE 220 MG CAP PO SCH (08:48)
[2022-01-12] MEDS: CHOLECALCIFEROL 25 MCG (1000 IU) TABLET PO SCH (08:48)
[2022-01-12 09:32] VITALS: BP 144/86; RESP 14; TEMP 97.8
[2022-01-12] MEDS: FAMOTIDINE 20 MG TAB PO SCH (09:49)
--- NOTE | 2022-01-12 10:12 | P.PN ---
Subjective Progress Note Date: 01/12/22 Principal diagnosis: Pneumonia The patient is a pleasant 56-year-old female patient with a known history of tobacco dependence, advanced multiple sclerosis with quadriplegia. She was diagnosed approximately 11 years ago. She is an unvaccinated individual who presented to the [facility] on 01/05 with increasing weakness, congestion. Patient's symptoms continued to progress despite using Mucinex. She sounded extremely congested to family members who were at bedside and provide the entire history due to patient being a poor historian. Patient always had issues with sounding congested, which is gotten worse this week. They also noted episodes of her feeling quite hot to touch. Therefore, today they brought her into the hospital for further evaluation. In the EC, the patient was afebrile, 142/95, heart rate 100, 92% on 3 L of nasal cannula. CBC was unremarkable. Chemistries show a hyponatremia to 130, otherwise unremarkable. Liver function tests showed an AST, ALT of 90, 64, total protein, albumin of 5.6, 3.2. Coags are unremarkable. D-dimer was 0.36. Covid was detected positive. RSV, influenza A/B were negative. Chest x-ray shows interstitial prominence with peribronchial cuffing. EKG shows sinus tachycardia without ischemic changes. The patient was started antibiotics in form of ceftriaxone an azithromax, Zinc, Vit C & D, Mucomyst, bronchodilators, and Decadron. 01/09 Patient resting in bed. , Chavez, at bedside. Information regarding palliative care philosophies and services provided. Education provided regarding her severe advanced MS. The patient has not seen a doctor in 7 years. She does not want to go anymore and has stopped all treatment for her MS. They stated they are aware that her disease will continue to progress. They do not have a PCP because it is too hard to transport her to and from an office, and it is very uncomfortable for her. At one point Chavez looked into [facility]. Unfortunately they were out of network and too expensive to pay out of pocket. He states he need some guidance and advice from a medical professional to continue to take care of her. The patient states she just wants to be comfortable, but is not ready for hospice yet. The patient and her are more interested in palliative care. However, without a PCP, they do not qualify for palliative care. Hospice philosophies and services explained to them. Hospice has their own physicians. They declined hospice. Updated case manageme nt. 01/10 Patient resting in bed. Chavez at bedside. Patient tachypneic with labored, shallow breaths and desatting. Respiratory therapist present and titrating O2 up to 15L HFNC, and then to NRB mask. CM met with patient and yesterday. is highly interested in having additional in home assistance, specifically nursing. CM explained that because patient does not have a PCP, she does not qualify for in home nursing. CM again discussed [facility] and stated he was told he would be responsible for an initial cost of $725 and then the visit would cost $5000. He stated they can not afford this. There are no other options for in home physician services known to CM. Therefore, patient is unable to have in home services through insurance. states he plans to discuss with his PCP, . The stated that he has no way of getting her to a doctors office because she is bed bound. She had decided to stop going to her physicians seven yeas ago. She felt as if there was not a lot they could do for her anyway. The ride to and from the office and sitting there for a long period of time to see the physician was just too hard on her. Hospice philosophies and services were discussed again. They agreed to an informational visit. Consult order placed and CM notified. 01/11 Patient resting in bed. Her is at the bedside. She is tachypneic, breathing is labored, shallow breaths, and has a weak cough. She is currently on 15L HFNC. The states that they met with hospice yesterday for an informational visit and are very interested in their services. He thinks they would be able to provide the services he needs to help keep her comfortable. The patient agreed. The would like to talk to the pulmonary physician to find out the chances of her lungs improving if given more time and treatment. It was explained that she is not likely to improve given her MS. The concern is now that she may continue to decline. She has not improved with treatment so far, and her oxygen requirements have gone up significantly. Dr. Cullen and Dr. Martinez notified. Objective - Vital Signs Vital signs: Vital Signs Temp 97.8 F 01/12/22 08:00 Pulse 67 01/12/22 08:00 Resp 14 01/12/22 08:00 BP 144/86 01/12/22 08:00 Pulse Ox 92 L 01/12/22 08:00 FiO2 Intake & Output 01/11/22 01/12/22 01/12/22 18:59 06:59 18:59 Other: # Voids 400 - Exam General: Well developed, well nourished. + respiratory distress. HEENT: Head is atraumatic, normocephalic. Sclerae are clear. Pupils equal, round and reactive to light bilaterally. Mucus membranes moist. CV: Heart regular in rate and rhythm positive S1 and S2. No clicks, rubs or murmurs. Peripheral pulses equal. 2/4 Lungs: Diminished bases, scattered rhonchi. Respirations shallow and nonlabored. Tachypneic. On 15L HFNC Abdomen/GI: Soft. Bowel sounds present in all 4 quadrants. No guarding, rigidity, or abdominal tenderness. Musculoskeletal/ Extremities: No joint deformity or swelling. Quadriplegic Vascular: Radial pulses equal. 2/4. No peripheral edema Skin: Warm and dry, No rash or lesions. Neurologic: Awake, alert and oriented times 3. No focal deficits. Psychiatric: Flat affect - Labs CBC & Chem 7: 01/09/22 07:26 01/11/22 05:55 Labs: Microbiology - Last 24 Hours (Table) 01/05/22 13:52 Blood Culture - Final Blood No Growth after 144 hours Assessment and Plan Assessment: Symptoms * Pain - 5/10 generalized pain/discomfort. Start [place] Q4H prn * Fatigue - + fatigue * SOB - Yes, Continue Albuterol, Decadron, and Ceftriaxone, chest PT, and mucomyst * Insomnia - Yes, patient has her own sleep schedule that varies, Continue Melatonin prn * N/V - + intermittent nausea, Continue Zofran * Anxiety - + Anxiiety, continue Xanax TID prn * Depression - No * Confusion - No * Agitation - No * Hallucinations - No * Appetite/weight loss - Fair appetite, no recent weight loss * Dysphagia - trouble swallowing, CHEMICAL ENGINEERING TECHNICIAN following, continue Dysphagia level 3 pureed/thin liquid diet * Constipation - No, LBM 01/11. Continue Immodium prn * Incontinence - Yes, wears briefs and has an external catheter * Itch - No Plan: Summary/Goals - Patient resting in bed with her at the bedside. He stated that after speaking with the physician yesterday they have decided to go home with hospice. The patient is in agreement. She would prefer to be in the comfort of her own home. Patient will be sent home with hospice services today at 11;30. Plan - Discharge home today with hospice. Advanced Directives - No Code Status - DNR Thank you for this consult Nkechi Gómez [facility] Palliative Care [facility] [id number] Email: [email or web address] Time with Patient: Less than 30
--- NOTE | 2022-01-12 10:51 | P.PN ---
Subjective Progress Note Date: 01/12/22 Principal diagnosis: Hypoxemic respiratory failure. This is a pleasant 56-year-old female patient with a known history of tobacco dependence, advanced multiple sclerosis with quadriplegia. He was diagnosed approximately 11 years ago. She is not on home oxygen. Earlier this week she developed increasing shortness of breath and was brought into the emergency room. She was found be CoVID positive. Chest x-ray revealed the posterior left lower lobe pneumonia. White count 3.1. Hemoglobin 12.8. Platelets 85,000. D- dimer 0.38. Sodium 1:30. Potassium 3.2. Bicarb 23. BUN is 0.6. Creatinine 0.2. AST 39. ALT 41. LDH 187. C-reactive protein 16.6. Pro-calcitonin 0.53. Influenza screen negative. Chronic virus by PCR positive. She was initiated on ceftriaxone, azithromycin, Decadron, vitamin supplements. Heparin for DVT prophylaxis. She is seen today in consultation on the regular medical floor. She is awake and alert. She denies any shortness of breath, cough or congestion. No nausea or vomiting. She is maintaining O2 saturation in the 90s on 4 L/m per nasal cannula. She's been afebrile. Hemodynamically stable. The patient is seen today 01/07/2022 in follow-up on the regular medical floor. She is awake and alert. She is maintaining O2 saturations in the 90s on 4 L/m per nasal cannula. She is maintaining on ceftriaxone and azithromycin. She is having issues with diarrhea and dehydration. 1 blood culture positive for coag- negative staph. sodium 137. Potassium 4.5. Bicarb 20. BUN 7. Creatinine 0.30. She is continued on vitamin supplements, Decadron, Heparin for DVT prophylaxis. The patient is seen today 01/08/2022 in follow-up on the regular medical floor. She is currently resting in bed. She is awake and alert. She is maintaining O2 saturations in the 90s on 2 L/m per nasal cannula. She's afebrile. Hemodynamically stable. She is continued on Decadron, heparin and vitamin supplements. The patient is seen today 01/09/2022 in follow-up on the regular medical floor. She is a bit more awake and alert today compared to yesterday. Her is at the bedside. She is maintaining O2 saturations in the low 90s on 6 L high flow nasal cannula. She's afebrile. Hemodynamically stable. Follow-up blood culture reveals no growth. White count 3.5. Hemoglobin 14.4. D-dimer 0.54. Sodium 135. Potassium 3.2. BUN 6. Creatinine 0.2. LDH 221. C-reactive protein 5.1. C. difficile screen negative. She is continued on ceftriaxone Remains on Decadron, heparin for DVT prophylaxis, vitamin supplements. Chest x- ray reveals elevated right hemidiaphragm with bilateral lower lobe infiltrates and small effusion. The patient is seen today 01/10/2022 in follow-up on the regular medical floor. She is currently resting comfortably in bed. Awake and alert in no acute distress. She is still requiring 8 L L high flow nasal cannula. She is continued on Decadron, heparin, vitamin supplements. She is on antibiotics in the form of ceftriaxone. Pro-calcitonin 0.12. Urinalysis pending. Progress note dated 01/11/2022. The patient is seen in room 479. Her oxygen requirements have significantly increased in the last couple of days. She's now up to 15 L high flow nasal cannula. Yesterday, she was on 8 L, and before that, 6 L. She's not receiving any IV fluids at this time. She is very weak, and cannot take deep breaths. She cannot do incentive spirometry. No new lab data today. The last bit of blood work on her was on January 09. Likewise, on the same day, she had a chest x-ray. Blood cultures from January 05 were positive for coag-negative staph. Apparently, her is considering hospice. Progress note dated 01/12/2022. The patient is again seen in room 479. Currently on 15 L high flow oxygen. No IV fluids. Apparently the family has decided for home hospice. I think that's the correct decision for her. Clinically she is doing about the same. She is profoundly weak. No new labs today. Blood cultures from January 05 show coag- negative staph. Objective - Vital Signs Vital signs: Vital Signs Temp 97.8 F 01/12/22 08:00 Pulse 67 01/12/22 08:00 Resp 14 01/12/22 08:00 BP 144/86 01/12/22 08:00 Pulse Ox 92 L 01/12/22 08:00 FiO2 Intake & Output 01/11/22 01/12/22 01/12/22 18:59 06:59 18:59 Other: # Voids 400 - Exam Frail, oriented 3, cannot take deep breaths. The patient is manifesting mild to moderate respiratory difficulty. HEENT examination is grossly unremarkable. Neck supple. Full range of motion. No adenopathy thyromegaly or neck vein distention. Cardiovascular examination reveals regular rhythm rate. S1-S2 normal. No S3 or S4. No discernible murmur noted. Heart rate 67 bpm. Heart sounds are distant. Lungs reveal coarse bilateral inspiratory and expiratory rhonchi. I suspect she has lots of airway secretions. No wheezes. A few scattered crackles. Breath sounds equal. Saturations are 92% on 15 L high flow cannula. Abdomen soft bowel sounds are heard. No masses or tenderness. Extremities are intact. No cyanosis clubbing or edema. Skin is without rash or lesion. Neurologic examination is unchanged. No peripheral muscle strength. - Labs CBC & Chem 7: 01/09/22 07:26 01/11/22 05:55 Labs: Microbiology - Last 24 Hours (Table) 01/05/22 13:52 Blood Culture - Final Blood No Growth after 144 hours Assessment and Plan Assessment: Acute hypoxic respiratory failure secondary to COVID-19 infection and left lower lobe infiltrate along with severe advanced multiple sclerosis. Hypoventilation secondary to severe advanced multiple sclerosis/quadriplegia. Multiple sclerosis. Chronic tobacco dependence. Diarrhea. Dehydration. Plan: Plan dated 01/11/2022. The patient's oxygen requirements have now gone up to 15 L high flow nasal cannula. Initially she was on 2 L. The patient is continuing on bro nchodilators, steroids, and subcutaneous heparin. Prognosis is very poor. I think it's very appropriate the consider hospice or palliative care. Labs, x-rays, and medications are reviewed. The patient continues on Rocephin. Plan dated 01/12/2022. The patient and the patient's family have decided to go home hospice. I believe that to be the correct decision. Clinically, she's not doing particularly well. She is on 15 L high flow. Saturations are barely 90%. She's profoundly weak. No additional recommendations are made. Prognosis is certainly not good. Time with Patient: Less than 30
--- NOTE | 2022-01-12 11:44 | P.DS ---
Providers Date of admission: 01/05/22 13:50 Expected date of discharge: 01/12/22 Attending physician: Krista Mckeon MD Consults: 01/05/22 13:50 Consult Physician Routine Consulting Provider: Mj Vincent Consult Reason/Comments: hypoxic respiratory failure Do you want consulting provider notified?: Yes 01/08/22 14:57 Consult to Palliative Care Routine Consulting Provider: Nkechi Gómez Consult Reason/Comments: GoC Do you want consulting provider notified?: Yes Primary care physician: Stated None Hospital Course: 56-year-old woman with a history of MS, quadriplegic, previous smoker, unvaccinated individual presented with increasing weakness, congestion. Patient's symptoms started Saturday of this week, continued to progress despite using Mucinex. She sounded extremely congested to family members who were at bedside and provide the entire history due to patient being a poor historian. Patient always had issues with sounding congested, which is gotten worse this week. They also noted episodes of her feeling quite hot to touch. Therefore, today they brought her into the hospital for further evaluation. Review of systems could not be completed due to patient being a poor historian and limited participation in interview In the emergency room, patient was afebrile, 142/95, heart rate 100, 92% on 3 L of nasal cannula. CBC was unremarkable. Chemistries show a hyponatremia to 130, otherwise unremarkable. Liver function tests showed an AST, ALT of 90, 64, total protein, albumin of 5.6, 3.2. Coags are unremarkable. D-dimer was 0.36. Covid was detected positive. RSV, influenza A/B were negative. Chest x-ray shows interstitial prominence with peribronchial cuffing. EKG shows sinus tachycardia without ischemic changes. With a regular COVID-19 pneumonia, patient was started on Rocephin and azithromycin for concerns of commuting or pneumonia. She was started on Decadron. She was given supplemental O2 to maintain O2 saturation greater than 92%. Pulmonology was consulted and followed the patient during her hospitalization. Unfortunately, her oxygen requirements continue to increase and she was on 15 L high flow nasal cannula at the time of discharge. She did have an episode of nonsustained ventricular tachycardia. Her electrolytes were repleted. She was started on metoprolol. Echocardiogram showed EF of 55% with LVH. Patient and was agreeable for hospice at home. There was some issues setting up oxygen at home which held her discharge on 01/11. Patient was seen and examined no 01/12. Her clinical condition did not change overnight. She had no complaints. Anticipated discharge home with hospice today. General: non toxic, no distress, appears at stated age Derm: warm, dry Head: atraumatic, normocephalic, symmetric Eyes: EOMI, no lid lag, anicteric sclera Mouth: no lip lesion, mucus membranes moist Lungs: tachypneic Ext: paraplegia with contractured upper extremities Psych: Flat affect Discharge diagnoses: Acute hypoxemic respiratory failure COVID-19 pneumonia Community Acquired Pneumonia Hypokalemia NSVT, max duration of 20 seconds Multiple sclerosis Quadriplegia This complex discharge took about 45 minutes to complete. Pertinent Studies: CXR Echo Patient Condition at Discharge: Serious Plan - Discharge Summary Discharge Rx Participant: No New Discharge Prescriptions: New HYDROcodone/APAP 5-325MG [[place] 5-325] 1 each PO Q4HR PRN #18 tab PRN Reason: Pain Famotidine [Pepcid] 20 mg PO BID #60 tab dexAMETHasone [Decadron] 6 mg PO DAILY #4 tablet Metoprolol Tartrate [Lopressor] 12.5 mg PO BID #60 tab Albuterol Inhaler [Ventolin Hfa Inhaler] 2 puff INHALATION RT-QID PRN #1 inh PRN Reason: Shortness Of Breath Or Wheezing ALPRAZolam [Xanax] 0.25 mg PO TID PRN #9 tab PRN Reason: Anxiety Continue Guaifen/Dextromethorphan/PE [Mucinex Fast-Max Congest-Cough] 10 ml PO BID PRN PRN Reason: Congestion Discharge Medication List Guaifen/Dextromethorphan/PE [Mucinex Fast-Max Congest-Cough] 10 ml PO BID PRN 01/05/22 [History] ALPRAZolam [Xanax] 0.25 mg PO TID PRN #9 tab 01/11/22 [Rx] Albuterol Inhaler [Ventolin Hfa Inhaler] 2 puff INHALATION RT-QID PRN #1 inh 01/11/22 [Rx] Famotidine [Pepcid] 20 mg PO BID #60 tab 01/11/22 [Rx] HYDROcodone/APAP 5-325MG [[place] 5-325] 1 each PO Q4HR PRN #18 tab 01/11/22 [Rx] Metoprolol Tartrate [Lopressor] 12.5 mg PO BID #60 tab 01/11/22 [Rx] dexAMETHasone [Decadron] 6 mg PO DAILY #4 tablet 01/11/22 [Rx] Follow up Appointment(s)/Referral(s): None,Stated [Primary Care Provider] - 1-2 days Activity/Diet/Wound Care/Special Instructions: Diet: Regular Follow-up with hospice at home. Discharge Disposition: HOME WITH HOSPICE
== END 2022-01-12 13:24 | disposition hospice, home (50) | DRG 177 ==
LOC: EC 11:27 → 4SSUR 13:50
PROVIDERS: ADMIT Internal Medicine; ATTEND Internal Medicine
PROC: 3E0333Z Introduction of Anti-inflammatory into Peripheral Vein, Percutaneous Approach (ICD-10-PCS; 2022-01-05)
PROC: 5A0945A Assistance with Respiratory Ventilation, 24-96 Consecutive Hours, High Flow/Velocity Cannula (ICD-10-PCS; principal; 2022-01-09)
DX: U07.1 COVID-19 (principal); G82.50 Quadriplegia, unspecified; J12.82 Pneumonia due to coronavirus disease 2019; J96.01 Acute respiratory failure with hypoxia; E87.1 Hypo-osmolality and hyponatremia; I47.2 Ventricular tachycardia; G35 Multiple sclerosis; R54 Age-related physical debility; E86.0 Dehydration; F17.210 Nicotine dependence, cigarettes, uncomplicated; Z66 Do not resuscitate; G47.00 Insomnia, unspecified; R13.10 Dysphagia, unspecified; R19.7 Diarrhea, unspecified; E87.6 Hypokalemia; Z51.5 Encounter for palliative care; F41.9 Anxiety disorder, unspecified; B95.7 Other staphylococcus as the cause of diseases classified elsewhere; Z28.310 Unvaccinated for COVID-19; Z74.01 Bed confinement status; Z91.19 Patient's noncompliance with other medical treatment and regimen
CPT/HCPCS: 36415; 71045; 71046; 80048; 80053; 80076; 81001; 83605; 83615; 83735; 83880; 84145; 85025; 85379; 85610; 85730; 86140; 87040; 87324; 87636; 93005; 93306; 94640; 94667; 94668; 94760

== ENCOUNTER 2023-07-03 09:14 | Inpatient (IN) | payer BC, MEDICARE ==
--- NOTE | 2023-07-03 09:23 | ED ---
General Adult HPI - General Chief complaint: Shortness of Breath Stated complaint: SOB,Fever Time Seen by Provider: 07/03/23 09:30 Source: patient, EMS, RN notes reviewed, old records reviewed Mode of arrival: EMS Limitations: no limitations - History of Present Illness Initial comments: 58-year-old female with MS presenting with fever, cough. History is obtained both from the patient and paramedics to transport. Patient is bedbound with history of advanced MS. She had developed fever as well as cough and dyspnea. Paramedics had administered supplemental oxygen and DuoNeb during transport. Patient denies abdominal pain. Denies vomiting. She does report cough. - Related Data Home Medications Medication Instructions Recorded Confirmed Guaifen/Dextromethorphan/PE 10 ml PO BID PRN 01/05/22 01/05/22 [Mucinex Fast-Max Congest-Cough] Previous Rx's Medication Instructions Recorded ALPRAZolam [Xanax] 0.25 mg PO TID PRN #9 tab 01/11/22 Albuterol Inhaler [Ventolin Hfa 2 puff INHALATION RT-QID PRN #1 inh 01/11/22 Inhaler] Famotidine [Pepcid] 20 mg PO BID #60 tab 01/11/22 HYDROcodone/APAP 5-325MG [[place] 1 each PO Q4HR PRN #18 tab 01/11/22 5-325] Metoprolol Tartrate [Lopressor] 12.5 mg PO BID #60 tab 01/11/22 dexAMETHasone [Decadron] 6 mg PO DAILY #4 tablet 01/11/22 Allergies Allergy/AdvReac Type Severity Reaction Status Date / Time No Known Allergies Allergy Verified 07/03/23 09:20 Review of Systems ROS Statement: Those systems with pertinent positive or pertinent negative responses have been documented in the HPI. ROS Other: All systems not noted in ROS Statement are negative. Past Medical History Additional Past Medical History / Comment(s): MS History of Any Multi-Drug Resistant Organisms: None Reported Past Surgical History: No Surgical Hx Reported Past Anesthesia/Blood Transfusion Reactions: No Reported Reaction Additional Past Anesthesia/Blood Transfusion Reaction / Comment(s): Patient has never experienced either Past Psychological History: No Psychological Hx Reported Smoking Status: Current every day smoker Past Alcohol Use History: None Reported, Occasional Past Drug Use History: None Reported General Exam General appearance: alert, in no apparent distress Head exam: Present: atraumatic, normocephalic Eye exam: Present: normal appearance, PERRL ENT exam: Present: normal exam Respiratory exam: Present: respiratory distress, rhonchi, decreased breath sounds Cardiovascular Exam: Present: regular rate, normal rhythm GI/Abdominal exam: Present: soft. Absent: distended, tenderness, guarding Neurological exam: Present: alert Skin exam: Present: warm, dry, intact Course Vital Signs 07/03/23 09:16 Temperature 100.8 F H Pulse Rate 93 Respiratory 20 Rate Blood Pressure 157/83 O2 Sat by Pulse 99 Oximetry Medical Decision Making - Medical Decision Making Was pt. sent in by a medical professional or institution (, MARYLOU, CERTIFIED DIABETES EDUCATOR, urgent care, hospital, or custodial...) When possible be specific @ -No Did you speak to anyone other than the patient for history (EMS, parent, family, police, friend...)? What history was obtained from this source @ -No Did you review nursing and triage notes (agree or disagree)? Why? @ -I reviewed and agree with nursing and triage notes Were old charts reviewed (outside hosp., previous admission, EMS record, old EKG, old radiological studies, urgent care reports/EKG's, custodial records)? Report findings @ -No old charts were reviewed Differential Diagnosis (chest pain, altered mental status, abdominal pain women, abdominal pain men, vaginal bleeding, weakness, fever, dyspnea, syncope, headache, dizziness, GI bleed, back pain, seizure, CVA, palpatations, mental health, musculoskeletal)? @ -Not applicable EKG interpreted by me (3pts min.). @EKG: Ventricular rate of 95, VT interval 131, QRS duration 102, QTc [address] segment elevation. X-rays interpreted by me (1pt min.). @Chest x-ray showing concern for developing infiltrate] CT interpreted by me (1pt min.). @ -None done U/S interpreted by me (1pt. min.). @ -None done What testing was considered but not performed or refused? (CT, X-rays, U/S, labs)? Why? @ -None What meds were considered but not given or refused? Why? @ -None Did you discuss the management of the patient with other professionals (professionals i.e. , PA, CERTIFIED DIABETES EDUCATOR, lab, RT, psych nurse, clinical social work aide, manager clinical research, teacher, licensed mortgage loan officer, case worker)? Give summary @ -No Was smoking cessation discussed for >3mins.? @ -No Was critical care preformed (if so, how long)? @ -Yes, 35 minutes Were there social determinants of health that impacted care today? How? (Homelessness, low income, unemployed, alcoholism, drug addiction, tr ansportation, low edu. Level, literacy, decrease access to med. care, custodial, rehab)? @ -No Was there de-escalation of care discussed even if they declined (Discuss DNR or withdrawal of care, Hospice)? DNR status @ -No What co-morbidities impacted this encounter? (DM, HTN, Smoking, COPD, CAD, Cancer, CVA, ARF, Chemo, Hep., AIDS, mental health diagnosis, sleep apnea, morbid obesity)? @ -Advanced multiple sclerosis Was patient admitted / discharged? Hospital course, mention meds given and route, prescriptions, significant lab abnormalities, going to OR and other pertinent info. @ -58-year-old female presenting with cough, fever, dyspnea. Patient has hypoxia according to paramedics requiring supplemental oxygen. She does test positive for influenza in the emergency department. Her laboratory testing has minor abnormalities. Chest x-ray showing developing infiltrate. Patient will require admission for pneumonia likely secondary influenza. Case discussed with sound physician group. Undiagnosed new problem with uncertain prognosis? @ -No Drug Therapy requiring intensive monitoring for toxicity (Heparin, Nitro, Insulin, Cardizem)? @ -No Were any procedures done? @ -No Diagnosis/symptom? @ -Influenza, pneumonia, hypoxia Acute, or Chronic, or Acute on Chronic? @ -Acute Uncomplicated (without systemic symptoms) or Complicated (systemic symptoms)? @ -Default Side effects of treatment? @ -No Exacerbation, Progression, or Severe Exacerbation? @ -No Poses a threat to life or bodily function? How? (Chest pain, [place], [place], pneumonia, PE, COPD, DKA, ARF, appy, cholecystitis, CVA, Diverticulitis, Homicidal, Suicidal, threat to staff... and all critical care pts) @ -yes, respiratory failure, - Lab Data Result diagrams: 07/03/23 09:28 07/03/23 11:30 Lab Results 07/03/23 07/03/23 07/03/23 Range/Units 09:28 09:28 09:28 WBC (3.8-10.6) k/uL RBC (3.80-5.40) m/uL Hgb (11.4-16.0) gm/dL Hct (34.0-46.0) % MCV (80.0-100.0) fL MCH (25.0-35.0) pg MCHC (31.0-37.0) g/dL RDW (11.5-15.5) % Plt Count (150-450) k/uL MPV Neutrophils % % Lymphocytes % % Monocytes % % Eosinophils % % Basophils % % Neutrophils # (1.3-7.7) k/uL Lymphocytes # (1.0-4.8) k/uL Monocytes # (0-1.0) k/uL Eosinophils # (0-0.7) k/uL Basophils # (0-0.2) k/uL Manual Slide Review Toxic Vacuolation Poikilocytosis Sodium (137-145) mmol/L Potassium (3.5-5.1) mmol/L Chloride (98-107) mmol/L Carbon Dioxide (22-30) mmol/L Anion Gap mmol/L BUN (7-17) mg/dL Creatinine (0.52-1.04) mg/dL Est GFR (CKD-EPI)AfAm (>60 ml/min/1.73 sqM) Est GFR (CKD-EPI)NonAf (>60 ml/min/1.73 sqM) Glucose (74-99) mg/dL Plasma Lactic Acid Constantin 0.7 (0.7-2.0) mmol/L Calcium (8.4-10.2) mg/dL Total Bilirubin (0.2-1.3) mg/dL AST (14-36) U/L ALT (4-34) U/L Alkaline Phosphatase (38-126) U/L Total Protein (6.3-8.2) g/dL Albumin (3.5-5.0) g/dL Urine Color Yellow Urine Appearance Turbid H (Clear) Urine pH 5.5 (5.0-8.0) Ur Specific [place] 1.018 (1.001-1.035) Urine Protein 1+ H (Negative) Urine Glucose (UA) Negative (Negative) Urine Ketones 1+ H (Negative) Urine Blood Trace (Negative) Urine Nitrite Negative (Negative) Urine Bilirubin Negative (Negative) Urine Urobilinogen <2.0 (<2.0) mg/dL Ur Leukocyte Esterase Negative (Negative) Urine RBC 2 (0-5) /hpf Urine WBC 2 (0-5) /hpf Ur Squamous Epith Cells 39 H (0-4) /hpf Urine Bacteria Many H (None) /hpf Urine Mucus Many H (None) /hpf Influenza Type A (PCR) Detected A (Not Detectd) Influenza Type B (PCR) Not Detected (Not Detectd) RSV (PCR) Not Detected (Not Detectd) SARS-CoV-2 (PCR) Not Detected (Not Detectd) 07/03/23 07/03/23 Range/Units 09:28 11:30 WBC 5.2 (3.8-10.6) k/uL RBC 4.93 (3.80-5.40) m/uL Hgb 15.0 (11.4-16.0) gm/dL Hct 44.4 (34.0-46.0) % MCV 89.9 (80.0-100.0) fL MCH 30.5 (25.0-35.0) pg MCHC 33.9 (31.0-37.0) g/dL RDW 14.0 (11.5-15.5) % Plt Count 91 L (150-450) k/uL MPV 11.4 Neutrophils % 83 % Lymphocytes % 8 % Monocytes % 7 % Eosinophils % 1 % Basophils % 1 % Neutrophils # 4.4 (1.3-7.7) k/uL Lymphocytes # 0.4 L (1.0-4.8) k/uL Monocytes # 0.4 (0-1.0) k/uL Eosinophils # 0.0 (0-0.7) k/uL Basophils # 0.1 (0-0.2) k/uL Manual Slide Review Performed Toxic Vacuolation Present Poikilocytosis Slight Sodium 134 L (137-145) mmol/L Potassium 3.1 L (3.5-5.1) mmol/L Chloride 110 H (98-107) mmol/L Carbon Dioxide 22 (22-30) mmol/L Anion Gap 2 mmol/L BUN 7 (7-17) mg/dL Creatinine 0.25 L (0.52-1.04) mg/dL Est GFR (CKD-EPI)AfAm >90 (>60 ml/min/1.73 sqM) Est GFR (CKD-EPI)NonAf >90 (>60 ml/min/1.73 sqM) Glucose 97 (74-99) mg/dL Plasma Lactic Acid [place] (0.7-2.0) mmol/L Calcium 7.0 L (8.4-10.2) mg/dL Total Bilirubin 0.5 (0.2-1.3) mg/dL AST 58 H (14-36) U/L ALT 44 H (4-34) U/L Alkaline Phosphatase 64 (38-126) U/L Total Protein 4.8 L (6.3-8.2) g/dL Albumin 2.6 L (3.5-5.0) g/dL Urine Color Urine Appearance (Clear) Urine pH (5.0-8.0) Ur Specific [place] (1.001-1.035) Urine Protein (Negative) Urine Glucose (UA) (Negative) Urine Ketones (Negative) Urine Blood (Negative) Urine Nitrite (Negative) Urine Bilirubin (Negative) Urine Urobilinogen (<2.0) mg/dL Ur Leukocyte Esterase (Negative) Urine RBC (0-5) /hpf Urine WBC (0-5) /hpf Ur Squamous Epith Cells (0-4) /hpf Urine Bacteria (None) /hpf Urine Mucus (None) /hpf Influenza Type A (PCR) (Not Detectd) Influenza Type B (PCR) (Not Detectd) RSV (PCR) (Not Detectd) SARS-CoV-2 (PCR) (Not Detectd) Disposition Clinical Impression: Hypoxia, Pneumonia, Influenza A Disposition: ADMITTED IP TO THIS HOSP Condition: Stable Is patient prescribed a controlled substance at d/c from ED?: No Referrals: None,Stated [Primary Care Provider] - 1-2 days Time of Disposition: 12:39
[2023-07-03] MEDS: SODIUM CHLORIDE 0.9% 500 ML 500 ML IV STA (10:44)
[2023-07-03] MEDS: ACETAMINOPHEN IV (For NPO) 720 MG in EMPTY BAG 1 BAG IVPB STA (10:44)
--- NOTE | 2023-07-03 11:13 | XR ---
EXAMINATION TYPE: XR chest 1V portable DATE OF EXAM: 07/03/2023 COMPARISON: 01/09/2022. HISTORY: Fever and congestion. TECHNIQUE: Single frontal view of the chest is obtained. Impression: There is a mild hazy opacity in the right medial lung base and perihilar region which may represent p neumonia. Short-term follow-up is recommended to assess for clearing. The left lung is clear. The cardiac silhouette and pulmonary vessels are within normal limits.
[2023-07-03 11:42] LABS: Basophils # (A) 0.1 k/uL (0-0.2); Basophils % (A) 1 %; Eosinophils % (A) 1 %; HCT 44.4 % (34.0-46.0); Lymphocytes # (A) 0.4 k/uL (1.0-4.8); Lymphocytes % (A) 8 %; MCH 30.5 pg (25.0-35.0); MCHC 33.9 g/dL (31.0-37.0); MCV 89.9 fL (80.0-100.0); Mean Platelet Volume 11.4; Monocytes # (A) 0.4 k/uL (0-1.0); Monocytes % (A) 7 %; Neutrophils # (A) 4.4 k/uL (1.3-7.7); Neutrophils % (A) 83 %; Poikilocytosis Slight; RBC 4.93 m/uL (3.80-5.40); WBC 5.2 k/uL (3.8-10.6)
[2023-07-03 11:50] LABS: Color,Urine Yellow
[2023-07-03 11:51] LABS: Appearance,Urine Turbid (Clear); Bilirubin,Urine Negative (Negative); Glucose,Urine (UA) Negative (Negative); Ketones,Urine 1+ (Negative); PH, Urine 5.5 (5.0-8.0); Protein,Urine 1+ (Negative); Specific Gravity,Urine 1.018 (1.001-1.035)
[2023-07-03 11:51] LABS: ALT 44 U/L (4-34); AST 58 U/L (14-36); African American GFR (CKD) >90 (>60 ml/min/1.73 sqM); Albumin 2.6 g/dL (3.5-5.0); Alkaline Phosphatase 64 U/L (38-126); Anion Gap 2 mmol/L; Blood Urea Nitrogen 7 mg/dL (7-17); Carbon Dioxide 22 mmol/L (22-30); Chloride 110 mmol/L (98-107); Glucose 97 mg/dL (74-99); Non-African American GFR(CKD) >90 (>60 ml/min/1.73 sqM); Potassium 3.1 mmol/L (3.5-5.1); Sodium 134 mmol/L (137-145); Total Bilirubin 0.5 mg/dL (0.2-1.3); Total Protein 4.8 g/dL (6.3-8.2)
[2023-07-03 11:52] LABS: Blood,Urine Trace (Negative); Leukocyte Esterase,Urine Negative (Negative); Nitrite,Urine Negative (Negative); RBC,Urine 2 /hpf (0-5); Squamous Epithelial Cell,Urine 39 /hpf (0-4); Urobilinogen,Urine <2.0 mg/dL (<2.0); WBC,Urine 2 /hpf (0-5)
[2023-07-03 11:53] LABS: Bacteria,Urine Many /hpf; Mucus,Urine Many /hpf
[2023-07-03 12:14] LABS: Platelet Count 91 k/uL (150-450)
[2023-07-03 12:22] LABS: Toxic Vacuolation Present
[2023-07-03] MEDS ORDERED: NALOXONE 0.4 MG/ML 1 ML VIAL IV PRN (12:36)
[2023-07-03] MEDS: OSELTAMIVIR 75 MG CAP PO STA (12:55)
[2023-07-03] MEDS: SODIUM CHLORIDE 0.9% 1,000 ML IV SCH (12:56)
[2023-07-03] MEDS: AZITHROMYCIN 500 MG in SODIUM CHLORIDE 0.9% 250 ML IVPB STA (12:56)
[2023-07-03] MEDS ORDERED: POTASSIUM BICARBONATE/CIT AC 20 MEQ TABLET.EFF PO ONE (14:51)
--- NOTE | 2023-07-03 15:06 | P.HPIM ---
History of Present Illness H&P Date: 07/03/23 Patient is a 58-year-old female with a past medical history of MS, quadriplegia, previous smoker, who was admitted for COVID-19 2 years ago and was discharged home on oxygen and with hospice who presents to the ED with chest congestion and chest tightness. is at bedside. Per patient has been bedbound due to her advanced MS for the past 12 years. states that every week or so she takes Mucinex which helps her congestion. He states that this time congestion was getting worse and was not improving Mucinex and she also had fevers so decided to bring her in to the emergency room. Patient is denying any shortness of breath. Patient states that her MS is at her baseline. She denies any difficulty with swallowing or breathing. There is no hypoxia documented. Patient was placed on a nonrebreather mask. states that 2 years ago when she was discharged from the hospital she was discharged on oxygen. He states that the patient has refused to wear oxygen. He states that her nurse comes to visit their house every month and her oxygen saturation is usually in the low 90s. Patient currently on nonrebreather mask and is satting at 99%. Patient also had a fever in the ED of 100.8. Labs are significant for potassium of 3.1. She was also found to be positive for influenza A. Chest x-ray showed right middle lobe consolidation. Review of systems: 10 ROS reviewed and are negative except as noted in HPI Physical exam General: [Alert and oriented, malnourished, appears chronically debilitated]. Eye: [PERRL, EOMI, normal conjunctiva]. HENT: [Normocephalic, clear tympanic membranes, normal hearing, dry oral mucosa, no scleral icterus, no sinus tenderness]. Neck: [Supple, non-tender, no carotid bruits, no JVD, no lymphadenopathy]. Lungs: [Diminished breath sounds bilaterally, non-labored respiration]. Heart: [Normal rate, regular rhythm, no murmur, gallop or edema]. Abdomen: [Soft, non-tender, non-distended, normal bowel sounds, no masses]. Musculoskeletal: [Patient contracted all 4 extremities, patient has no strength in all 4 extremities]. Neurologic: [Awake, alert, and oriented X3, CN II-XII intact]. Psychiatric: [Cooperative, appropriate mood and affect]. Assessment and plan Acute hypoxic respiratory failure Influenza A Right middle lobe pneumonia which could be aspiration Patient received Rocephin and azithromycin in the ED. Will start the patient on Unasyn to cover for possible aspiration Speech therapy consult Continue breathing treatment Continue with Tamiflu 75 mg twice daily Continue fluids 75 cc an hour Follow-up on blood cultures Will start the patient on Mucinex Patient on nonrebreather mask Wean O2 as tolerated Mild hypokalemia Will give the 60 mill equivalents of potassium bicarb Advanced myasthenia gravis Per patient when she became paralyzed she stopped following up with a neurologist because nothing was working. Will consult neurology DVT prophylaxis: Subcu heparin Past Medical History Additional Past Medical History / Comment(s): MS History of Any Multi-Drug Resistant Organisms: None Reported Past Surgical History: No Surgical Hx Reported Past Anesthesia/Blood Transfusion Reactions: No Reported Reaction Additional Past Anesthesia/Blood Transfusion Reaction / Comment(s): Patient has never experienced either Past Psychological History: No Psychological Hx Reported Smoking Status: Current every day smoker Past Alcohol Use History: None Reported, Occasional Past Drug Use History: None Reported Medications and Allergies Home Medications Medication Instructions Recorded Confirmed Type No Known Home Medications 07/03/23 07/03/23 History Allergies Allergy/AdvReac Type Severity Reaction Status Date / Time No Known Allergies Allergy Verified 07/03/23 13:53 Physical Exam Osteopathic Statement: *. No significant issues noted on an osteopathic structu ral exam other than those noted in the History and Physical/Consult. Vitals: Vital Signs Temp Pulse Resp BP Pulse Ox 07/03/23 14:00 85 20 146/84 98 07/03/23 12:00 89 22 146/84 97 07/03/23 10:00 107 H 21 157/83 96 07/03/23 09:16 100.8 F H 93 20 157/83 99 Intake and Output 07/03/23 07/03/23 07/03/23 06:59 14:59 22:59 Other: Weight 36.287 kg Results CBC & Chem 7: 07/03/23 09:28 07/03/23 11:30 Labs: Abnormal Lab Results - Last 24 Hours (Table) 07/03/23 07/03/23 07/03/23 Range/Units 09:28 09:28 09:28 Plt Count 91 L (150-450) k/uL Lymphocytes # 0.4 L (1.0-4.8) k/uL Sodium (137-145) mmol/L Potassium (3.5-5.1) mmol/L Chloride (98-107) mmol/L Creatinine (0.52-1.04) mg/dL Calcium (8.4-10.2) mg/dL AST (14-36) U/L ALT (4-34) U/L Total Protein (6.3-8.2) g/dL Albumin (3.5-5.0) g/dL Urine Appearance Turbid H (Clear) Urine Protein 1+ H (Negative) Urine Ketones 1+ H (Negative) Ur Squamous Epith Cells 39 H (0-4) /hpf Urine Bacteria Many H (None) /hpf Urine Mucus Many H (None) /hpf Influenza Type A (PCR) Detected A (Not Detectd) 07/03/23 Range/Units 11:30 Plt Count (150-450) k/uL Lymphocytes # (1.0-4.8) k/uL Sodium 134 L (137-145) mmol/L Potassium 3.1 L (3.5-5.1) mmol/L Chloride 110 H (98-107) mmol/L Creatinine 0.25 L (0.52-1.04) mg/dL Calcium 7.0 L (8.4-10.2) mg/dL AST 58 H (14-36) U/L ALT 44 H (4-34) U/L Total Protein 4.8 L (6.3-8.2) g/dL Albumin 2.6 L (3.5-5.0) g/dL Urine Appearance (Clear) Urine Protein (Negative) Urine Ketones (Negative) Ur Squamous Epith Cells (0-4) /hpf Urine Bacteria (None) /hpf Urine Mucus (None) /hpf Influenza Type A (PCR) (Not Detectd)
[2023-07-03] MEDS: IPRATROPIUM-ALBUTEROL 3 ML NEB INHALATION SCH (15:08)
[2023-07-03] MEDS: POTASSIUM BICARBONATE/CIT AC 20 MEQ TABLET.EFF PO SCH (15:37)
[2023-07-03] MEDS: HEPARIN SODIUM,PORCINE 5,000 UNIT/ML 1 ML VIAL SQ SCH (15:39)
--- NOTE | 2023-07-03 17:42 | P.CNPUL ---
History of Present Illness Consult date: 07/03/23 Requesting physician: Ibis Johnson Reason for consult: dyspnea, abnormal CXR/CT Chief complaint: Shortness of breath, cough, congestion History of present illness: This is a pleasant 58-year-old female patient with a known history of advanced stage multiple sclerosis who is mainly bedridden. She is not on oxygen at home. She does have chronic and ongoing tobacco dependence. No other significant past medical history. She had presented here to the emergency room with a 3-day history of increasing shortness of breath cough, congestion and fever. Chest x- ray shows mild hazy opacity in the right medial lung base and perihilar region reflecting suspected pneumonia. White count 5.2. Hemoglobin 15.0. Platelets 91,000. Sodium 134. Potassium 3.1. Bicarb 22. BUN 7. Creatinine 0.25. AST 58. ALT 44. Urinalysis turbid with many bacteria. Viral screen shows positive for influenza A. He is seen today in consultation in the emergency department. She is currently laying on a stretcher. Awake and alert in no acute distress. She is requiring 6 L high flow nasal cannula to maintain O2 saturations in the 90s. She is currently afebrile. Hemodynamically stable. Review of Systems REVIEW OF SYSTEMS: CONSTITUTIONAL: Denies any recent significant weight loss or weight gain. EYES: Denies change in vision. EARS, NOSE, MOUTH, THROAT: Denies headaches, denies sore throat. CARDIOVASCULAR: Denies chest pain, palpitations or syncopal episodes. RESPIRATORY: Positive for shortness of breath, cough, congestion no hemoptysis. GASTROINTESTINAL: Denies change in appetite, denies abdominal pain GENITOURINARY: Denies hematuria, denies infections. MUSKULOSKELETAL: Denies pain, denies swelling. INTEGUMENTARY: Denies rash, denies eczema. NEUROLOGICAL: Denies recent memory loss, no recent seizure activity. PSYCHIATRIC: Denies anxiety, denies depression. HEMATOLOGIC/LYMPHATIC: Denies anemia, denies enlarged lymph nodes. Past Medical History Additional Past Medical History / Comment(s): MS History of Any Multi-Drug Resistant Organisms: None Reported Past Surgical History: No Surgical Hx Reported Past Anesthesia/Blood Transfusion Reactions: No Reported Reaction Additional Past Anesthesia/Blood Transfusion Reaction / Comment(s): Patient has never experienced either Past Psychological History: No Psychological Hx Reported Smoking Status: Current every day smoker Past Alcohol Use History: None Reported, Occasional Past Drug Use History: None Reported Medications and Allergies Home Medications Medication Instructions Recorded Confirmed Type No Known Home Medications 07/03/23 07/03/23 History Allergies Allergy/AdvReac Type Severity Reaction Status Date / Time No Known Allergies Allergy Verified 07/03/23 13:53 Physical Exam Vitals: Vital Signs Temp Pulse Resp BP Pulse Ox 07/03/23 16:00 98.3 F 93 20 96 07/03/23 15:23 94 L 07/03/23 15:22 102 H 07/03/23 15:13 92 07/03/23 14:00 85 20 146/84 98 07/03/23 12:00 89 22 146/84 97 07/03/23 10:00 107 H 21 157/83 96 07/03/23 09:16 100.8 F H 93 20 157/83 99 Intake and Output 07/03/23 07/03/23 07/03/23 06:59 14:59 22:59 Other: Weight 36.287 kg GENERAL EXAM: Alert, very thin, frail 58-year-old female with advanced multiple sclerosis, on 6 L nasal cannula, fairly comfortable in no apparent distress. HEAD: Normocephalic. EYES: Normal reaction of pupils, equal size. NOSE: Clear with pink turbinates. THROAT: No erythema or exudates. NECK: No masses, no JVD. CHEST: No chest wall deformity. LUNGS: Equal air entry with bilateral scattered rhonchi. CVS: S1 and S2 normal with no audible murmur, regular rhythm. ABDOMEN: No hepatosplenomegaly, normal bowel sounds, no guarding or rigidity. SPINE: No scoliosis or deformity SKIN: No rashes CENTRAL NERVOUS SYSTEM: Evidence of advanced multiple sclerosis. EXTREMITIES: There is no peripheral edema. No clubbing, no cyanosis. Peripheral pulses are intact. Results - Laboratory Findings CBC and BMP: 07/03/23 09:28 07/03/23 11:30 Abnormal lab findings: Abnormal Labs 07/03/23 07/03/23 07/03/23 09:28 09:28 09:28 Plt Count 91 L Lymphocytes # 0.4 L Sodium Potassium Chloride Creatinine Calcium AST ALT Total Protein Albumin Urine Appearance Turbid H Urine Protein 1+ H Urine Ketones 1+ H Ur Squamous Epith Cells 39 H Urine Bacteria Many H Urine Mucus Many H Influenza Type A (PCR) Detected A 07/03/23 11:30 Plt Count Lymphocytes # Sodium 134 L Potassium 3.1 L Chloride 110 H Creatinine 0.25 L Calcium 7.0 L AST 58 H ALT 44 H Total Protein 4.8 L Albumin 2.6 L Urine Appearance Urine Protein Urine Ketones Ur Squamous Epith Cells Urine Bacteria Urine Mucus Influenza Type A (PCR) - Diagnostic Findings Chest x-ray: image reviewed Assessment and Plan Assessment: Acute suspected community-acquired pneumonia complicated by influenza A Acute influenza A infection Possible urinary tract infection Hypokalemia Advanced stage multiple sclerosis, bedridden Severe muscle wasting secondary to above with a BMI of 13.7 kg/m Chronic and ongoing tobacco dependence Plan: The patient was seen and evaluated Chest x-ray, labs and medications reviewed Initiated on Unasyn, bronchodilators Initiated on Tamiflu Heparin for DVT prophylaxis Normal saline at 75 MLS per hour Electrolyte replacement Titrate the FiO2 as tolerated We will continue to follow and make further recommendations based on her clinical status I have personally seen and examined the patient, performed the documentation and the assessment and plan as written. Number of minutes spent on the visit: 20.
[2023-07-03] MEDS: AMPICILLIN-SULBACTAM 3 GM in SODIUM CHLORIDE 0.9% 100 ML IVPB SCH (17:59)
[2023-07-03] MEDS: guaiFENesin 600 MG TABLET.ER PO SCH (20:46)
[2023-07-03] MEDS: OSELTAMIVIR 75 MG CAP PO SCH (20:46)
[2023-07-03] MEDS: ACETAMINOPHEN TAB 325 MG TAB PO PRN (23:54)
[2023-07-04] MEDS: IPRATROPIUM-ALBUTEROL 3 ML NEB INHALATION SCH (07:38)
[2023-07-04 08:16] LABS: Basophils % (A) 0 %; Eosinophils % (A) 0 %; HCT 43.9 % (34.0-46.0); HGB 14.6 gm/dL (11.4-16.0); Lymphocytes # (A) 0.7 k/uL (1.0-4.8); Lymphocytes % (A) 13 %; MCH 30.6 pg (25.0-35.0); MCHC 33.3 g/dL (31.0-37.0); Mean Platelet Volume 8.3; Monocytes # (A) 0.1 k/uL (0-1.0); Monocytes % (A) 3 %; Neutrophils # (A) 4.7 k/uL (1.3-7.7); Neutrophils % (A) 83 %; Platelet Count 127 k/uL (150-450); RBC 4.77 m/uL (3.80-5.40); RDW 13.2 % (11.5-15.5); WBC 5.7 k/uL (3.8-10.6)
[2023-07-04 08:46] LABS: African American GFR (CKD) >90 (>60 ml/min/1.73 sqM); Anion Gap 6 mmol/L; Blood Urea Nitrogen 9 mg/dL (7-17); Calcium 7.6 mg/dL (8.4-10.2); Carbon Dioxide 20 mmol/L (22-30); Chloride 109 mmol/L (98-107); Glucose 98 mg/dL (74-99); Magnesium 1.9 mg/dL (1.6-2.3); Non-African American GFR(CKD) >90 (>60 ml/min/1.73 sqM); Sodium 135 mmol/L (137-145)
[2023-07-04 08:52] LABS: Potassium 4.9 mmol/L (3.5-5.1)
--- NOTE | 2023-07-04 10:43 | P.PN ---
Subjective Progress Note Date: 07/04/23 No new complaints. Pt reports her dyspnea is improving. Gen: In NAD, non-toxic HEENT: normocephalic, atraumatic, hearing acuity is intant, mucous membranes moist CVS: perfusing all extremities well, no pitting edema, Respiratory: symmetric chest expansion, no accessory muscle use, GI: soft, NTTP, ND, : no suprapubic tenderness, no CVA tenderness MSK/Derm: no rashes, cyanosis Neuro: CN II-XII intact, no motor weakness, Psych: cooperative, euthymic mood, judgment and insight is intact Hospital Course: Patient is a 58-year-old female with a past medical history of MS, quadriplegia, previous smoker, who was admitted for COVID-19 2 years ago and was discharged home on oxygen and with hospice who presented to the ED with chest congestion and chest tightness. Patient was on nonrebreather mask and satting at 99% on admission. Patient also had a fever in the ED of 100.8. Labs are significant for potassium of 3.1. She was also found to be positive for influenza A. Chest x-ray showed right middle lobe consolidation. Assessment/Plan: Assessment and plan Acute hypoxic respiratory failure Influenza A Right middle lobe pneumonia which could be aspiration Patient received Rocephin and azithromycin in the ED. Will start the patient on Unasyn to cover for possible aspiration Speech therapy consult Continue breathing treatment Continue with Tamiflu 75 mg twice daily Continue fluids 75 cc an hour Follow-up on blood cultures Will start the patient on Mucinex Patient on nonrebreather mask Wean O2 as tolerated Mild hypokalemia, resolved Continue to monitor BMP Advanced multiple sclerosis Per patient when she became paralyzed she stopped following up with a neurologist because nothing was working. Neurology consulted, evaluation pending DVT prophylaxis: Subcu heparin Objective - Vital Signs Vital signs: Vital Signs Temp 99.1 F 07/04/23 04:42 Pulse 104 H 07/04/23 07:48 Resp 16 07/04/23 04:42 BP 109/82 07/04/23 04:42 Pulse Ox 93 L 07/04/23 07:38 FiO2 Intake & Output 07/03/23 07/04/23 07/04/23 18:59 06:59 18:59 Intake Total 110 Output Total 550 Balance -550 110 Weight 36.287 kg 51.5 kg Intake: Oral 110 Output: Urine 550 Other: Voiding Method Incontinent External Catheter - Labs CBC & Chem 7: 07/04/23 07:58 07/04/23 07:58 Labs: Abnormal Lab Results - Last 24 Hours (Table) 07/03/23 07/03/23 07/03/23 Range/Units 09:28 09:28 09:28 Plt Count 91 L (150-450) k/uL Lymphocytes # 0.4 L (1.0-4.8) k/uL Sodium (137-145) mmol/L Potassium (3.5-5.1) mmol/L Chloride (98-107) mmol/L Carbon Dioxide (22-30) mmol/L Creatinine (0.52-1.04) mg/dL Calcium (8.4-10.2) mg/dL AST (14-36) U/L ALT (4-34) U/L Total Protein (6.3-8.2) g/dL Albumin (3.5-5.0) g/dL Urine Appearance Turbid H (Clear) Urine Protein 1+ H (Negative) Urine Ketones 1+ H (Negative) Ur Squamous Epith Cells 39 H (0-4) /hpf Urine Bacteria Many H (None) /hpf Urine Mucus Many H (None) /hpf Influenza Type A (PCR) Detected A (Not Detectd) 07/03/23 07/04/23 07/04/23 Range/Units 11:30 07:58 07:58 Plt Count 127 L (150-450) k/uL Lymphocytes # 0.7 L (1.0-4.8) k/uL Sodium 134 L 135 L (137-145) mmol/L Potassium 3.1 L (3.5-5.1) mmol/L Chloride 110 H 109 H (98-107) mmol/L Carbon Dioxide 20 L (22-30) mmol/L Creatinine 0.25 L 0.21 L (0.52-1.04) mg/dL Calcium 7.0 L 7.6 L (8.4-10.2) mg/dL AST 58 H (14-36) U/L ALT 44 H (4-34) U/L Total Protein 4.8 L (6.3-8.2) g/dL Albumin 2.6 L (3.5-5.0) g/dL Urine Appearance (Clear) Urine Protein (Negative) Urine Ketones (Negative) Ur Squamous Epith Cells (0-4) /hpf Urine Bacteria (None) /hpf Urine Mucus (None) /hpf Influenza Type A (PCR) (Not Detectd)
--- NOTE | 2023-07-04 14:59 | P.PN ---
Subjective Progress Note Date: 07/04/23 Principal diagnosis: Acute influenza A infection and acute community-acquired pneumonia. This is a pleasant 58-year-old female patient with a known history of advanced stage multiple sclerosis who is mainly bedridden. She is not on oxygen at home. She does have chronic and ongoing tobacco dependence. No other significant past medical history. She had presented here to the emergency room with a 3-day history of increasing shortness of breath cough, congestion and fever. Chest x- ray shows mild hazy opacity in the right medial lung base and perihilar region reflecting suspected pneumonia. White count 5.2. Hemoglobin 15.0. Platelets 91,000. Sodium 134. Potassium 3.1. Bicarb 22. BUN 7. Creatinine 0.25. AST 58. ALT 44. Urinalysis turbid with many bacteria. Viral screen shows positive for influenza A. He is seen today in consultation in the emergency department. She is currently laying on a stretcher. Awake and alert in no acute distress. She is requiring 6 L high flow nasal cannula to maintain O2 saturations in the 90s. She is currently afebrile. Hemodynamically stable. Patient was reevaluated today on 07/04/2023, we saw this patient in the ER, she was admitted with acute influenza A infection, superimposed community-acquired pneumonia and she has underlying severe multiple sclerosis. Patient is on 4 L nasal cannula, O2 sats is 98%, she seems to be comfortable, patient has a very weak cough. Patient is maintained on bronchodilators, antibiotics, and Mucinex was added.WBC count is 5.7 hemoglobin 14.6 basic metabolic profile is relatively normal renal profile is normal Objective - Vital Signs Vital signs: Vital Signs Temp 96.1 F L 07/04/23 12:00 Pulse 99 07/04/23 12:00 Resp 24 07/04/23 12:00 BP 131/67 07/04/23 12:00 Pulse Ox 98 07/04/23 12:00 FiO2 Intake & Output 07/03/23 07/04/23 07/04/23 18:59 06:59 18:59 Intake Total 110 Output Total 550 Balance -550 110 Weight 36.287 kg 51.5 kg Intake: Oral 110 Output: Urine 550 Other: Voiding Method Incontinent Incontinent External Catheter External Catheter - Exam GENERAL EXAM: Revealed a very frail 58-year-old female in no distress on 4 L nasal cannula HEAD: Normocephalic. EYES: Normal reaction of pupils, equal size. NOSE: Clear with pink turbinates. THROAT: No erythema or exudates. NECK: No masses, no JVD. CHEST: No chest wall deformity. LUNGS: Rales at the bases no rhonchi no wheezes CVS: S1 and S2 normal with no audible murmur, regular rhythm. ABDOMEN: No hepatosplenomegaly, normal bowel sounds, no guarding or rigidity. SKIN: No rashes CENTRAL NERVOUS SYSTEM: Evidence of advanced multiple sclerosis. EXTREMITIES: There is no peripheral edema. No clubbing, no cyanosis. Peripheral pulses are intact. - Labs CBC & Chem 7: 07/04/23 07:58 07/04/23 07:58 Labs: Abnormal Lab Results - Last 24 Hours (Table) 07/04/23 07/04/23 Range/Units 07:58 07:58 Plt Count 127 L (150-450) k/uL Lymphocytes # 0.7 L (1.0-4.8) k/uL Sodium 135 L (137-145) mmol/L Chloride 109 H (98-107) mmol/L Carbon Dioxide 20 L (22-30) mmol/L Creatinine 0.21 L (0.52-1.04) mg/dL Calcium 7.6 L (8.4-10.2) mg/dL Assessment and Plan Assessment: Impression: Acute influenza A infection with superimposed Acute community-acquired pneumonia Possible urinary tract infection Hypokalemia Advanced stage multiple sclerosis, bedridden Severe muscle wasting secondary to above with a BMI of 13.7 kg/m Chronic and ongoing tobacco dependence Recommendation: Continue antibiotics/Unasyn Continue bronchodilators Continue Mucinex Continue IV fluids Titrate FiO2 accordingly Will continue to follow Time with Patient: Less than 30
[2023-07-05 09:02] LABS: Basophils % (A) 0 %; Eosinophils % (A) 1 %; HCT 35.7 % (34.0-46.0); HGB 12.3 gm/dL (11.4-16.0); Lymphocytes # (A) 0.5 k/uL (1.0-4.8); Lymphocytes % (A) 14 %; MCH 31.1 pg (25.0-35.0); MCHC 34.5 g/dL (31.0-37.0); MCV 90.3 fL (80.0-100.0); Mean Platelet Volume 8.6; Monocytes # (A) 0.2 k/uL (0-1.0); Monocytes % (A) 7 %; Neutrophils # (A) 2.5 k/uL (1.3-7.7); Neutrophils % (A) 77 %; Platelet Count 119 k/uL (150-450); RBC 3.96 m/uL (3.80-5.40); RDW 13.5 % (11.5-15.5); WBC 3.3 k/uL (3.8-10.6)
[2023-07-05 09:35] LABS: African American GFR (CKD) >90 (>60 ml/min/1.73 sqM); Anion Gap 4 mmol/L; Blood Urea Nitrogen 9 mg/dL (7-17); Calcium 7.2 mg/dL (8.4-10.2); Carbon Dioxide 25 mmol/L (22-30); Chloride 109 mmol/L (98-107); Glucose 106 mg/dL (74-99); Magnesium 1.9 mg/dL (1.6-2.3); Non-African American GFR(CKD) >90 (>60 ml/min/1.73 sqM); Sodium 138 mmol/L (137-145)
[2023-07-05 09:47] LABS: Potassium 2.7 mmol/L (3.5-5.1)
--- NOTE | 2023-07-05 09:54 | P.CNNES ---
History of Present Illness Consult date: 07/04/23 Requesting physician: Ibis Johnson Reason for Consult: Multiple sclerosis History of Present Illness: Patient is a 58-year-old right-handed female with history of advanced multiple sclerosis, complete quadriplegia, bedbound for last 10 years, came to the hospital for not feeling well. Patient started feeling sick with chest congestion and a fever on 07/01/2023, came here to the hospital on Saturday morning at 9:14 AM by ambulance. Patient's has mentioned that she was not able to cough anything up and sounded very congested. When EMS arrived, patient was laying in the bed appearing to be alert and oriented x 3 with minor confusion to time, pink warm and dry. Patient appeared to be letharg ic and the mentioned that she has been more slow to respond with some confusion since Saturday. Her gave her NyQuil, which broke the fever but she continued to have congestion. Patient did not appear to be in respiratory distress. EKG shows sinus tachycardia. Patient had a fever of 102.3 tympanic. Saturation was 84% on room air. Patient had Rales in the upper lobe and were diminished in the lower lobe. Patient denied any abdominal pain nausea vomiting or diarrhea. Patient's blood pressure at the scene was 148/89, heart rate 121, saturation 84% and respirations 18. Blood glucose was 123 mg/dL. Patient's temperature on arrival was 100.8. Blood test shows normal CBC, sodium 134 potassium 3.1, normal renal functions. AST mildly elevated 58, ALT 44. UA is negative. Influenza A positive. RSV, coronavirus negative. EKG shows sinus rhythm. Chest x-ray showed mild hazy opacity in the right medial lung base and perihilar region which may represent pneumonia. The left lung is clear. Pulmonary vessels normal. Patient was diagnosed with multiple sclerosis in her early 30s when she presented with optic neuritis. Patient tried Avonex for a month but developed side effects and stopped taking it. She does not seem to have tried any other immune modulating treatment. She used to follow-up with Dr. Marin, and was tried on Solu-Medrol infusion every 3 months. She tried Provigil. Patient has developed quadriplegic in the last 10 years. Her is the main caregiver. She lives at home. Patient has stopped going to see a neurologist for a number of years. Patient has history of smoking half pack per day since she was a teenager until she quit a year ago at age 57. Used to drink alcohol socially. Review of Systems Constitutional: Reports fever, Denies chills Eyes: bilateral blurred vision, bilateral decreased vision, denies pain, denies loss of vision Ears: right: decreased hearing (Deaf right ear), deny: ear discharge Ears, nose, mouth and throat: Denies headache, Denies sore throat, Denies vertigo Cardiovascular: Reports shortness of breath, Denies chest pain, Denies lightheadedness Respiratory: Reports congestion, Reports cough with sputum, Denies home oxygen Gastrointestinal: Reports diarrhea, Denies abdominal pain, Denies nausea, Denies vomiting Genitourinary: Reports mixed incontinence, Denies dysuria, Denies hematuria Musculoskeletal: Denies low back pain, Denies neck pain Integumentary: Denies pruritus, Denies rash Neurological: Reports as per HPI Psychiatric: Denies anxiety, Denies depression Endocrine: Denies fatigue, Denies weight change Past Medical History Additional Past Medical History / Comment(s): MS History of Any Multi-Drug Resistant Organisms: None Reported Past Surgical History: No Surgical Hx Reported Past Anesthesia/Blood Transfusion Reactions: No Reported Reaction Additional Past Anesthesia/Blood Transfusion Reaction / Comment(s): Patient has never experienced either Past Psychological History: No Psychological Hx Reported Smoking Status: Former smoker Past Alcohol Use History: None Reported Past Drug Use History: None Reported Medications and Allergies Home Medications Medication Instructions Recorded Confirmed Type No Known Home Medications 07/03/23 07/03/23 History Allergies Allergy/AdvReac Type Severity Reaction Status Date / Time No Known Allergies Allergy Verified 07/03/23 13:53 Physical Examination - Vital Signs Vital Signs: Vital Signs Temp Pulse Pulse Resp BP Pulse Ox 07/04/23 12:00 96.1 F L 99 24 131/67 98 07/04/23 11:36 96 07/04/23 11:25 92 07/04/23 08:00 98.1 F 99 17 133/65 96 07/04/23 07:48 104 H 07/04/23 07:38 100 93 L 07/04/23 04:42 99.1 F 104 H 16 109/82 93 L 07/04/23 02:00 96 07/04/23 01:34 99.1 F 96 16 133/82 96 07/03/23 23:07 100.4 F H 101 H 16 141/81 95 07/03/23 20:43 98.3 F 101 H 20 137/79 96 07/03/23 20:27 103 H 07/03/23 20:19 102 H 07/03/23 17:48 98.2 F 95 20 135/81 97 07/03/23 16:00 98.3 F 93 20 96 07/03/23 15:23 94 L 07/03/23 15:22 102 H Intake and Output 07/04/23 07/04/23 07/04/23 06:59 14:59 22:59 Intake Total 110 Output Total 150 Balance -150 110 Intake: Oral 110 Output: Urine 150 Other: Voiding Method Incontinent Incontinent External Catheter External Catheter Weight 51.5 kg Patient is a middle aged female, who appears older than her stated age. Patient is alert awake. Patient states it is June and the year is 2002. She knows that she is [facility] and that she lives in [facility]. She knows name of the current president. Her lips are dry. Speech and language functions are normal. Patient can name and repeat very well. She has slightly slow mentation. Patient at first said fingers, and after multiple attempts was able to tell knuckles. Likewise for earlobe, she first said "cheek", then said earlobe, that was asked. No aphasia or dysarthria. Attention, concentration is slightly decreased and fund of knowledge is slightly limited. Detailed cognitive function testing deferred. On cranial nerve examination, pupils are equal, although sometimes the left pupil appeared very minimally larger than the right, both are round and reacting to light, visual correa are full on confrontation, with no neglect on double simultaneous stimulation. Extraocular muscles are intact, and nystagmus was noted in end gaze bilaterally. Her face is symmetric, tongue protrudes to the midline. Palatal elevation and sensation normal, hearing and shoulder shrug normal, facial sensation decreased bilaterally. On muscle strength testing, patient is completely quadriplegic in all 4 extremities. Deep tendon reflexes are 1+ to 2+, and patient has clonus on the left. Plantars are downgoing. Sensory to touch is equal with no neglect on double simultaneous stimulation. Cerebellar function cannot be assessed. Gait deferred.. On general examination, there is no carotid bruit or murmur, S1-S2 audible. Chest is clear on consultation. Abdomen is soft nontender. No organomegaly, bowel sounds present. Peripheral pulses are present. No peripheral edema. Results - Laboratory Findings CBC and BMP: 07/05/23 08:19 07/04/23 07:58 Abnormal Lab Findings: Abnormal Labs 07/03/23 07/03/23 07/03/23 09:28 09:28 09:28 Plt Count 91 L Lymphocytes # 0.4 L Sodium Potassium Chloride Carbon Dioxide Creatinine Calcium AST ALT Total Protein Albumin Urine Appearance Turbid H Urine Protein 1+ H Urine Ketones 1+ H Ur Squamous Epith Cells 39 H Urine Bacteria Many H Urine Mucus Many H Influenza Type A (PCR) Detected A 07/03/23 07/04/23 07/04/23 11:30 07:58 07:58 Plt Count 127 L Lymphocytes # 0.7 L Sodium 134 L 135 L Potassium 3.1 L Chloride 110 H 109 H Carbon Dioxide 20 L Creatinine 0.25 L 0.21 L Calcium 7.0 L 7.6 L AST 58 H ALT 44 H Total Protein 4.8 L Albumin 2.6 L Urine Appearance Urine Protein Urine Ketones Ur Squamous Epith Cells Urine Bacteria Urine Mucus Influenza Type A (PCR) Assessment and Plan Assessment: * Advanced multiple sclerosis. Patient has been quadriplegic, and bedbound for last 10 years. * Acute influenza A positive * Community-acquired pneumonia * Chronic tobacco use * Severe muscle wasting due to advanced MS. Plan: * Patient's neurological examination is stable. She continues to be quadriplegic, which is baseline for last 10 years. Patient and her do not believe that patient has any worsening of her neurological status beyond baseline. No indication for steroids. * We will check B12, folate, vitamin D. * Treatment of other medical/pulmonary condition as per IM and pulmonary medicine. * No other neurological workup indicated. * Neurology will sign off. Please reconsult if any concerns. Thank you for the consult.
--- NOTE | 2023-07-05 10:16 | XR ---
EXAMINATION TYPE: XR chest 1V portable DATE OF EXAM: 07/05/2023 COMPARISON: 07/03/2023. HISTORY: Bilateral pneumonia. TECHNIQUE: Single frontal view of the chest is obtained. IMPRESSION: There is slight increasing airspace opacity right perihilar region as well as within the right lung b ase when compared to the previous examination. There is a small left and small right pleural effusion also suspected. The cardiac silhouette and pulmonary vessels are within normal limits.
[2023-07-05] MEDS: POTASSIUM CHLORIDE ER 20 MEQ TAB.ER PO SCH ×2 (10:36→21:13)
--- NOTE | 2023-07-05 11:15 | P.PN ---
Subjective Progress Note Date: 07/05/23 No new complaints. Pt reports her dyspnea is baseline per patient, she is interesting in going home. Unfortunately, her K did drop down to 2.7 today on bloodwork. Pulmonology also initiating chest physiotherapy Gen: In NAD, non-toxic HEENT: normocephalic, atraumatic, hearing acuity is intant, mucous membranes moist CVS: perfusing all extremities well, no pitting edema, Respiratory: symmetric chest expansion, no accessory muscle use, GI: soft, NTTP, ND, : no suprapubic tenderness, no CVA tenderness MSK/Derm: no rashes, cyanosis Neuro: CN II-XII intact, no motor weakness, Psych: cooperative, euthymic mood, judgment and insight is intact Hospital Course: Patient is a 58-year-old female with a past medical history of MS, quadriplegia, previous smoker, who was admitted for COVID-19 2 years ago and was discharged home on oxygen and with hospice who presented to the ED with chest congestion and chest tightness. Patient was on nonrebreather mask and satting at 99% on admission. Patient also had a fever in the ED of 100.8. Labs are significant for potassium of 3.1. She was also found to be positive for influenza A. Chest x-ray showed right middle lobe consolidation. Assessment and plan Acute hypoxic respiratory failure Influenza A Right middle lobe pneumonia which could be aspiration Patient received Rocephin and azithromycin in the ED. Will start the patient on Unasyn to cover for possible aspiration Speech therapy consult Continue breathing treatment Continue with Tamiflu 75 mg twice daily Continue fluids 75 cc an hour Follow-up on blood cultures Will start the patient on Mucinex Patient on nonrebreather mask Wean O2 as tolerated Mild hypokalemia Continue to monitor BMP Added 20mEq q1h x 4 doses Advanced multiple sclerosis Per patient when she became paralyzed she stopped following up with a neurologist because nothing was working. Neurology consulted, evaluation appreciated DVT prophylaxis: Subcu heparin Objective - Vital Signs Vital signs: Vital Signs Temp 99 F 07/05/23 08:00 Pulse 100 07/05/23 09:04 Resp 19 07/05/23 08:00 BP 126/64 07/05/23 08:00 Pulse Ox 90 L 07/05/23 08:54 FiO2 Intake & Output 07/04/23 07/05/23 07/05/23 18:59 06:59 18:59 Intake Total 220 225 Output Total 350 Balance 220 -350 225 Intake: Oral 220 225 Output: Urine 350 Other: Voiding Method Incontinent Incontinent Incontinent External Catheter External Catheter External Catheter # Voids 1 # Bowel Movements 1 - Labs CBC & Chem 7: 07/05/23 08:19 07/05/23 08:19 Labs: Abnormal Lab Results - Last 24 Hours (Table) 07/05/23 07/05/23 Range/Units 08:19 08:19 WBC 3.3 L (3.8-10.6) k/uL Plt Count 119 L (150-450) k/uL Lymphocytes # 0.5 L (1.0-4.8) k/uL Potassium 2.7 L* (3.5-5.1) mmol/L Chloride 109 H (98-107) mmol/L Creatinine 0.26 L (0.52-1.04) mg/dL Glucose 106 H (74-99) mg/dL Calcium 7.2 L (8.4-10.2) mg/dL Microbiology - Last 24 Hours (Table) 07/03/23 10:00 Blood Culture - Preliminary Blood 07/03/23 10:18 Blood Culture - Preliminary Blood
--- NOTE | 2023-07-05 13:06 | P.PN ---
Subjective Progress Note Date: 07/05/23 Principal diagnosis: Acute influenza A infection and acute community-acquired pneumonia. This is a pleasant 58-year-old female patient with a known history of advanced stage multiple sclerosis who is mainly bedridden. She is not on oxygen at home. She does have chronic and ongoing tobacco dependence. No other significant past medical history. She had presented here to the emergency room with a 3-day history of increasing shortness of breath cough, congestion and fever. Chest x- ray shows mild hazy opacity in the right medial lung base and perihilar region reflecting suspected pneumonia. White count 5.2. Hemoglobin 15.0. Platelets 91,000. Sodium 134. Potassium 3.1. Bicarb 22. BUN 7. Creatinine 0.25. AST 58. ALT 44. Urinalysis turbid with many bacteria. Viral screen shows positive for influenza A. He is seen today in consultation in the emergency department. She is currently laying on a stretcher. Awake and alert in no acute distress. She is requiring 6 L high flow nasal cannula to maintain O2 saturations in the 90s. She is currently afebrile. Hemodynamically stable. Patient was reevaluated today on 07/04/2023, we saw this patient in the ER, she was admitted with acute influenza A infection, superimposed community-acquired pneumonia and she has underlying severe multiple sclerosis. Patient is on 4 L nasal cannula, O2 sats is 98%, she seems to be comfortable, patient has a very weak cough. Patient is maintained on bronchodilators, antibiotics, and Mucinex was added.WBC count is 5.7 hemoglobin 14.6 basic metabolic profile is relatively normal renal profile is normal Patient was reevaluated today on 07/05/2023, patient is basically about the same may be slightly improved, she is not using her oxygen today, and she is on nasal cannula. Chest x-ray is basically about the same with possible slight worsening of the right lower lobe infiltrate. The main issue is the patient has significant difficulty clearing her secretions considering her MS. WBC count today 3.3 hemoglobin is 12.3 potassium is low being addressed as per protocol, renal functioning is normal. Patient remains on antibiotics and she remains on Tamiflu for her influenza A infection Objective - Vital Signs Vital signs: Vital Signs Temp 98.4 F 07/05/23 12:00 Pulse 84 07/05/23 12:00 Resp 20 07/05/23 12:00 BP 118/62 07/05/23 12:00 Pulse Ox 93 L 07/05/23 12:00 FiO2 Intake & Output 07/04/23 07/05/23 07/05/23 18:59 06:59 18:59 Intake Total 220 225 Output Total 350 Balance 220 -350 225 Intake: Oral 220 225 Output: Urine 350 Other: Voiding Method Incontinent Incontinent Incontinent External Catheter External Catheter External Catheter # Voids 1 # Bowel Movements 1 - Exam GENERAL EXAM: Revealed a very frail 58-year-old female in no distress on room air O2 sat is 93% HEAD: Normocephalic. EYES: Normal reaction of pupils, equal size. NOSE: Clear with pink turbinates. THROAT: No erythema or exudates. NECK: No masses, no JVD. CHEST: No chest wall deformity. LUNGS: Rales at the bases no rhonchi no wheezes CVS: S1 and S2 normal with no audible murmur, regular rhythm. ABDOMEN: No hepatosplenomegaly, normal bowel sounds, no guarding or rigidity. SKIN: No rashes CENTRAL NERVOUS SYSTEM: Profound weakness related to MS EXTREMITIES: There is no peripheral edema. No clubbing, no cyanosis. Peripheral pulses are intact. - Labs CBC & Chem 7: 07/05/23 08:19 07/05/23 08:19 Labs: Abnormal Lab Results - Last 24 Hours (Table) 07/05/23 07/05/23 Range/Units 08:19 08:19 WBC 3.3 L (3.8-10.6) k/uL Plt Count 119 L (150-450) k/uL Lymphocytes # 0.5 L (1.0-4.8) k/uL Potassium 2.7 L* (3.5-5.1) mmol/L Chloride 109 H (98-107) mmol/L Creatinine 0.26 L (0.52-1.04) mg/dL Glucose 106 H (74-99) mg/dL Calcium 7.2 L (8.4-10.2) mg/dL Microbiology - Last 24 Hours (Table) 07/03/23 10:00 Blood Culture - Preliminary Blood 07/03/23 10:18 Blood Culture - Preliminary Blood Assessment and Plan Assessment: Impression: Acute influenza A infection with superimposed Acute community-acquired pneumonia Possible urinary tract infection Hypokalemia Advanced stage multiple sclerosis, bedridden Severe muscle wasting secondary to above with a BMI of 13.7 kg/m Chronic and ongoing tobacco dependence Recommendation: Continue antibiotics/Unasyn Continue bronchodilators Continue Mucinex Continue IV fluids Patient is now off oxygen Considering the patient has a very weak and poor cough, will arrange for chest physical therapy respiratory Will continue to follow Time with Patient: Less than 30
--- NOTE | 2023-07-05 15:05 | FL ---
Modified barium swallow. HISTORY: Dysphagia. Modified barium swallow was performed with the department of speech pathology. The patient was prese nted with various consistencies of barium. There is no evidence for aspiration or penetration. Full report is to follow from the department of speech pathology. Impression: Normal study.
[2023-07-05 15:35] LABS: African American GFR (CKD) >90 (>60 ml/min/1.73 sqM); Anion Gap 7 mmol/L; Blood Urea Nitrogen 7 mg/dL (7-17); Calcium 7.3 mg/dL (8.4-10.2); Carbon Dioxide 19 mmol/L (22-30); Chloride 111 mmol/L (98-107); Glucose 107 mg/dL (74-99); Non-African American GFR(CKD) >90 (>60 ml/min/1.73 sqM); Potassium 3.7 mmol/L (3.5-5.1); Sodium 137 mmol/L (137-145)
--- NOTE | 2023-07-05 16:27 | CDI ---
Documentation Clarification Form Date: From: Tyesha Luna Phone: [phone] Admit Date: 07/03/2023 12:36:00 PM Patient Name: Mansi Kelly Visit Number: [id number] Discharge Date: ATTENTION: The Clinical Documentation Specialists (CDI) and [facility] Coding Staff appreciate your assistance in clarifying documentation. Please respond to the clarification below the line at the bottom and electronically sign. The CDI & [facility] Coding staff will review the response and follow-up if needed. Please note: Queries are made part of the Legal Health Record. If you have any questions, please contact the author of this message via ITS. Dr. Belinda Obregon There is documentation of Quadriplegic / bedbound in the Neurology note on 07/03. Additional clarification is requested. History/Risk Factors: "58-year-old right-handed female with history of advanced multiple sclerosis, complete quadriplegia, bedbound for last 10 years, came to the hospital for not feeling well." - Per Neurology Note on 07/03 Clinical Indicators: "diagnosed with multiple sclerosis in her early 30s when she presented with optic neuritis. Patient tried Avonex for a month but developed side effects and stopped taking it." "Patient has developed quadriplegic in the last 10 years" "patient is completely quadriplegic in all 4 extremities" - Per Neurology note on 07/03 Treatment: Neurology consult, "check B12, folate, vitamin D" "No other neurological workup indicated" - Per Neurology Note on 07/03 Can you please clarify the quadriplegia? [ ] Functional Quadriplegia [ x ] Other (please specify): Due to advanced multiple sclerosis [ ] Unable to determine MTDD
--- NOTE | 2023-07-05 16:43 | CDI ---
Documentation Clarification Form Date: From: Tyesha Luna Phone: [phone] Admit Date: 07/03/2023 12:36:00 PM Patient Name: Mansi Kelly Visit Number: [id number] Discharge Date: ATTENTION: The Clinical Documentation Specialists (CDI) and [facility] Coding Staff appreciate your assistance in clarifying documentation. Please respond to the clarification below the line at the bottom and electronically sign. The CDI & [facility] Coding staff will review the response and follow-up if needed. Please note: Queries are made part of the Legal Health Record. If you have any questions, please contact the author of this message via ITS. Dr. Mj Vincent The patient has WBC of 3.3, Heart rate of 115, RR of 24 and Temp. 96.1. Based on this information and the findings below, is there an additional diagnosis that is clinically appropriate for this patient? History/Risk Factors: "58-year-old female with a past medical history of MS, quadriplegia, previous smoker, who was admitted for COVID-19 2 years ago and was discharged home on oxygen and with hospice who presents to the ED with chest congestion and chest tightness." - Per H&P on 07/02 Clinical Indicators: "congestion was getting worse and was not improving Mucinex and she also had fevers" "Chest x-ray showed right middle lobe consolidation." "Acute hypoxic respiratory failure" - Per H&P on 07/02 WBC: 07/02 - 5.2, 07/03 - 5.7, 07/04 - 3.3 Lactic acid: 07/02 - 0.7 Blood cultures collected 07/02: "No Growth AFter 24 Hours" - updated 07/03 Influenza A: Detected Vitals signs: 07/02 09:16 - Temp. 100.8, HR 93, RR 20, BP 157/83, 99% on Non-Rebreather 07/02 10:00 - HR 107, RR 21 07/03 12:00 - Temp. 96.1, HR 99, RR 24, BP 131/67, O2 98% on 4L 07/03 20:40 - Temp. 100.3, HR 115, RR 18, BP 112/68, 90% on room air Treatment: Per H&P on 07/02 "Patient received Rocephin and azithromycin in the ED. Will start the patient on Unasyn to cover for possible aspiration Continue breathing treatment Continue with Tamiflu 75 mg twice daily Continue fluids 75 cc an hour Follow-up on blood cultures" Is there an additional diagnosis that is clinically appropriate for this patient? [ x ] Sepsis, present on admission [ ] Sepsis, developed during stay, not present on admission [ ] Severe Sepsis with organ failure [ ] Other, please specify [ ] Unable to determine SIRS Criteria: 2 or more of the following may indicate SIRS Temperature < 96.8F (36C) or > 101.0F (38.3C) Heart Rate > 90 bpm Respiratory Rate > 20 breaths/min or PaCO2 < 32 mmHg White Blood Cell Count > 12,000 or < 4,000 cells/mm3 or > 10% bands MTDD
[2023-07-05 21:11] VITALS: RESP 18
[2023-07-06] MEDS: ZINC OXIDE PASTE (Z-GUARD) 1 APPLIC TOPICAL PRN (06:20)
[2023-07-06 09:10] VITALS: BP 135/76; TEMP 97
--- NOTE | 2023-07-06 10:31 | P.DS ---
Providers Date of admission: 07/03/23 12:36 Expected date of discharge: 07/06/23 Attending physician: Lillian Renee DO Consults: 07/03/23 12:43 Consult Physician Urgent Consulting Provider: Mj Vincnet Consult Reason/Comments: advanced MS, unable to clear secretions independently Influ A w/ pneumonia Do you want consulting provider notified?: Yes 07/03/23 13:05 Consult Physician Urgent Consulting Provider: Belinda Obregon Consult Reason/Comments: Multiple sclerosis Do you want consulting provider notified?: Yes Primary care physician: Stated None Hospital Course: Acute hypoxic respiratory failure Influenza A Right middle lobe pneumonia which could be aspiration Mild hypokalemia Advanced multiple sclerosis Gen: In NAD, non-toxic HEENT: normocephalic, atraumatic, hearing acuity is intant, mucous membranes moist CVS: perfusing all extremities well, no pitting edema, Respiratory: symmetric chest expansion, no accessory muscle use, GI: soft, NTTP, ND, : no suprapubic tenderness, no CVA tenderness MSK/Derm: no rashes, cyanosis Neuro: CN II-XII intact, no motor weakness, Psych: cooperative, euthymic mood, judgment and insight is intact Hospital Course: Patient is a 58-year-old female with a past medical history of MS, quadriplegia, previous smoker, who was admitted for COVID-19 2 years ago and was discharged home on oxygen and with hospice who presented to the ED with chest congestion and chest tightness. Patient was on nonrebreather mask and satting at 99% on admission. Patient also had a fever in the ED of 100.8. Labs are significant for potassium of 3.1. She was also found to be positive for influenza A. Chest x-ray showed right middle lobe consolidation. Pt treated with unasyn, nebulizers, tamiflu. Pulmonology also added chest physiotherapy. With these interventions, she was weaned back to room air. Pt was discharged home with PCP and pulmonology f/u as well as home care services. Pt was also noted to have several episodes of hypokalemia and required K replacement. On discharge, she was placed on 20mEq PO daily. I spent 34 minutes coordinating this discharge on 07/05 Patient Condition at Discharge: Good Plan - Discharge Summary Discharge Rx Participant: No New Discharge Prescriptions: New Acetaminophen Tab [Tylenol] 650 mg PO Q6HR PRN tab PRN Reason: Mild Pain Or Fever > 100.5 Amoxic-Pot Clav 875-125Mg [Augmentin 875-125] 1 tab PO BID 3 Days #6 tab Potassium Chloride ER [K-Dur 20] 20 meq PO DAILY #30 tab Oseltamivir [Tamiflu] 75 mg PO Q12HR #6 cap Discharge Medication List Acetaminophen Tab [Tylenol] 650 mg PO Q6HR PRN tab 07/05/23 [Rx] Amoxic-Pot Clav 875-125Mg [Augmentin 875-125] 1 tab PO BID 3 Days #6 tab 07/05/23 [Rx] Oseltamivir [Tamiflu] 75 mg PO Q12HR #6 cap 07/05/23 [Rx] Potassium Chloride ER [K-Dur 20] 20 meq PO DAILY #30 tab 07/05/23 [Rx] Follow up Appointment(s)/Referral(s): None,Stated [Primary Care Provider] - 1-2 days Discharge Disposition: HOME WITH HOME HEALTH SERVICES
[2023-07-06 11:35] LABS: Glucose,Whole Blood 98 mg/dL (70-110)
[2023-07-06 11:46] VITALS: PULSE 92
--- NOTE | 2023-07-06 13:52 | P.PN ---
Subjective Progress Note Date: 07/06/23 Principal diagnosis: Acute influenza A infection and acute community-acquired pneumonia. This is a pleasant 58-year-old female patient with a known history of advanced stage multiple sclerosis who is mainly bedridden. She is not on oxygen at home. She does have chronic and ongoing tobacco dependence. No other significant past medical history. She had presented here to the emergency room with a 3-day history of increasing shortness of breath cough, congestion and fever. Chest x- ray shows mild hazy opacity in the right medial lung base and perihilar region reflecting suspected pneumonia. White count 5.2. Hemoglobin 15.0. Platelets 91,000. Sodium 134. Potassium 3.1. Bicarb 22. BUN 7. Creatinine 0.25. AST 58. ALT 44. Urinalysis turbid with many bacteria. Viral screen shows positive for influenza A. He is seen today in consultation in the emergency department. She is currently laying on a stretcher. Awake and alert in no acute distress. She is requiring 6 L high flow nasal cannula to maintain O2 saturations in the 90s. She is currently afebrile. Hemodynamically stable. Patient was reevaluated today on 07/04/2023, we saw this patient in the ER, she was admitted with acute influenza A infection, superimposed community-acquired pneumonia and she has underlying severe multiple sclerosis. Patient is on 4 L nasal cannula, O2 sats is 98%, she seems to be comfortable, patient has a very weak cough. Patient is maintained on bronchodilators, antibiotics, and Mucinex was added.WBC count is 5.7 hemoglobin 14.6 basic metabolic profile is relatively normal renal profile is normal Patient was reevaluated today on 07/05/2023, patient is basically about the same may be slightly improved, she is not using her oxygen today, and she is on nasal cannula. Chest x-ray is basically about the same with possible slight worsening of the right lower lobe infiltrate. The main issue is the patient has significant difficulty clearing her secretions considering her MS. WBC count today 3.3 hemoglobin is 12.3 potassium is low being addressed as per protocol, renal functioning is normal. Patient remains on antibiotics and she remains on Tamiflu for her influenza A infection Reevaluate today on 07/06/2023, patient is feeling better, breathing easier, O2 s ats is 95% on room air, however the patient continues to have difficulty clearing her secretions because of her underlying MS. Objective - Vital Signs Vital signs: Vital Signs Temp 97.0 F L 07/06/23 08:57 Pulse 92 07/06/23 11:32 Resp 18 07/06/23 08:57 BP 135/76 07/06/23 08:57 Pulse Ox 95 07/06/23 08:57 FiO2 Intake & Output 07/05/23 07/06/23 07/06/23 18:59 06:59 18:59 Intake Total 460 Output Total 1150 300 Balance 460 -1150 -300 Intake: Oral 460 Output: Urine 1150 300 Other: Voiding Method Incontinent Incontinent Incontinent External Catheter External Catheter External Catheter # Voids 1 1 # Bowel Movements 2 1 - Exam GENERAL EXAM: Revealed a very frail 58-year-old female in no distress on room air HEAD: Normocephalic. EYES: Normal reaction of pupils, equal size. NOSE: Clear with pink turbinates. THROAT: No erythema or exudates. NECK: No masses, no JVD. CHEST: No chest wall deformity. LUNGS: Rales at the bases no rhonchi no wheezes CVS: S1 and S2 normal with no audible murmur, regular rhythm. ABDOMEN: No hepatosplenomegaly, normal bowel sounds, no guarding or rigidity. SKIN: No rashes CENTRAL NERVOUS SYSTEM: Profound weakness related to MS EXTREMITIES: There is no peripheral edema. No clubbing, no cyanosis. Peripheral pulses are intact. - Labs CBC & Chem 7: 07/05/23 08:19 07/05/23 15:01 Labs: Abnormal Lab Results - Last 24 Hours (Table) 07/05/23 07/05/23 Range/Units 08:19 15:01 Chloride 111 H (98-107) mmol/L Carbon Dioxide 19 L (22-30) mmol/L Creatinine 0.20 L (0.52-1.04) mg/dL Glucose 107 H (74-99) mg/dL Calcium 7.3 L (8.4-10.2) mg/dL Vitamin B12 2328.0 H (200.0-944.0) pg/mL Vitamin D 25-Hydroxy 22.4 L (30.0-100.0) ng/mL Microbiology - Last 24 Hours (Table) 07/03/23 10:00 Blood Culture - Preliminary Blood 07/03/23 10:18 Blood Culture - Preliminary Blood Assessment and Plan Assessment: Impression: Acute influenza A infection with superimposed Acute community-acquired pneumonia Possible urinary tract infection Hypokalemia Advanced stage multiple sclerosis, bedridden Severe muscle wasting secondary to above with a BMI of 13.7 kg/m Chronic and ongoing tobacco dependence Recommendation: Continue antibiotics/Unasyn Continue bronchodilators Continue Mucinex Continue IV fluids Continue CPT Consider discharge planning in the next 24 to 48 hours Will continue to follow Time with Patient: Less than 30
== END 2023-07-06 13:43 | disposition home health service (06) | DRG 871 ==
LOC: EC 09:14 → 3SCARD 12:36
PROVIDERS: ADMIT Internal Medicine; ATTEND Internal Medicine
DX: A41.9 Sepsis, unspecified organism (principal); G82.50 Quadriplegia, unspecified; J10.00 Influenza due to other identified influenza virus with unspecified type of pneumonia; J96.01 Acute respiratory failure with hypoxia; N39.0 Urinary tract infection, site not specified; H46.9 Unspecified optic neuritis; G35 Multiple sclerosis; E87.6 Hypokalemia; M62.50 Muscle wasting and atrophy, not elsewhere classified, unspecified site; Z74.01 Bed confinement status; Z86.16 Personal history of COVID-19; Z11.52 Encounter for screening for COVID-19
CPT/HCPCS: 36415; 71045; 74230; 80048; 80053; 81001; 82306; 82607; 82746; 83605; 83735; 85025; 87040; 87636; 93005; 94640; 94664; 94667; 94668; 94760; 96361; 96365; 96367; 96372; 99291